=== PATIENT | female | born 1950 | race Caucasian/White ===

== ENCOUNTER → 2018-04-12 01:21 | Outpatient (CLI) | payer MEDICARE, SELFPAY ==
--- NOTE | 2018-04-12 13:37 | DI.REPORT_ITS ---
SYMPTOMS/DIAGNOSIS: SCREENING, Z12.31 MAMMOGRAMS: Mammograms were interpreted according to the usual protocol including computer analysis with CAD system, tomosynthesis and C view imaging. The breast tissue is of moderate radiodensity. There is no dominant mass. There are no suspicious calcifications and there has been no significant interval change when compared with prior images. SUMMARY: No evidence of malignancy, category 1. Yearly screening mammography is recommended. Breast density category B. SA ASSESSMENT OF FINDINGS: Negative. Category 1. Patient will receive a letter notifying them of these results. BI-RADS category B. There are scattered areas of fibroglandular density.
== END ==
PROVIDERS: PCP Nurse Practitioner Family; Visit Provider Nurse Practitioner Family
DX: Z12.31 Encounter for screening mammogram for malignant neoplasm of breast (principal)
CPT/HCPCS: 77063; 77067

== ENCOUNTER → 2018-04-17 14:34 | Outpatient (REF) | payer MEDICARE, SELFPAY | LOC: LBN 14:34 | PROVIDERS: PCP Nurse Practitioner Family; Visit Provider Family Medicine | DX: R30.0 Dysuria (principal) | CPT/HCPCS: 87077; 87086; 87186 ==

== ENCOUNTER 2018-06-27 12:07 | Outpatient (REF) | payer MEDICARE, SELFPAY | END 2018-06-27 12:27 | LOC: LBN 12:07 | PROVIDERS: PCP Nurse Practitioner Family; Visit Provider Nurse Practitioner | DX: R30.9 Painful micturition, unspecified (principal) | CPT/HCPCS: 87077; 87086; 87186 ==

== ENCOUNTER 2018-06-27 15:12 | Outpatient (CLI) | payer MEDICARE, SELFPAY ==
--- NOTE | 2018-06-27 09:49 | DI.RAD_ITS ---
SYMPTOMS/DIAGNOSIS: THUMB PAIN, SWELLING AND DISLOCATION, M79.646 LEFT THUMB: No fracture or dislocation is seen. The joint spaces are well maintained. There is spurring at the base of the 1st metacarpal and a small subchondral cyst at the base of the 1st and 2nd metacarpals. IMPRESSION: Degenerative changes at the base of the 1st and 2nd metacarpals.
== END 2018-06-27 15:32 ==
PROVIDERS: PCP Nurse Practitioner Family; Visit Provider Nurse Practitioner
DX: M79.645 Pain in left finger(s) (principal); M85.442 Solitary bone cyst, left hand; M19.042 Primary osteoarthritis, left hand
CPT/HCPCS: 73140

== ENCOUNTER 2018-07-07 01:51 | Outpatient (CLI) | payer MEDICARE, SELFPAY ==
[2018-07-07 11:31] LABS: Cholesterol 197 mg/dL (50-200); HDL Cholesterol 49 mg/dL (40-60); LDL CHOLESTEROL 136 mg/dL (<100); Triglyceride 95 mg/dL (30-150)
[2018-07-10 09:36] LABS: Hepatitis C Ab w Rflx HCV PCR Negative (NEGAT)
== END 2018-07-07 02:11 ==
PROVIDERS: PCP Nurse Practitioner Family; Visit Provider Nurse Practitioner Family
DX: E78.5 Hyperlipidemia, unspecified (principal); Z11.59 Encounter for screening for other viral diseases
CPT/HCPCS: 36415; 80061; 83721; 86803

== ENCOUNTER → 2018-07-12 10:41 | Outpatient (BNVA) | payer MEDICARE, SELFPAY | PROVIDERS: PCP Nurse Practitioner Family; Referring Provider Nurse Practitioner Family; Visit Provider Orthopaedic Surgery | DX: M65.312 Trigger thumb, left thumb (principal) | CPT/HCPCS: 99211; 99213 ==

== ENCOUNTER 2018-07-17 10:45 | Day surgery (SDC) | payer MEDICARE, SELFPAY ==
[2018-07-17 11:02] VITALS: BP 123/68; PULSE 70; RESP 16; TEMP 36.1; O2SAT 94
[2018-07-17] MEDS: Lidocaine 2% Multi-Dose 50 ML VIAL (12:16)
--- NOTE | 2018-07-17 12:29 | PDOC.DSDIS_ITS ---
Discharge Plan Disposition Patient Disposition: HOME Condition: Good Discharge Details Reason For Visit: (L) TRIGGER THUMB Attending Provider: Thony Wong Primary Care Provider: Leslie Levy Home Meds and New Rx's Prescriptions: Continue acetaminophen [Tylenol Extra Strength] 500 mg tablet 1,000 mg PO TID PRN (Reason: pain) Qty: 360 RF: 3 umeclidinium [Incruse Ellipta] 62.5 mcg/actuation blister with device 1 inh Inhalation DAILY Qty: 3 RF: 3 varicella-zoster [id number] (PF) [Shingrix (PF)] 50 mcg/0.5 mL suspension for reconstitution 50 mcg IM .COMPLEX Qty: 1 RF: 1 docusate sodium [Colace] 100 MG capsule 100 mg PO PRN RF: 0 melatonin-pyridoxine HCl (B6) 1 EACH tablet 1 ea PO HS Qty: 90 RF: 3 multivitamin [Daily Multi-Vitamin] 1 EACH tablet 1 ea PO DAILY RF: 0 compression socks, medium [Futuro Restoring Medium] 1 EACH misc 1 ea Miscellaneous DAILY Qty: 2 RF: 0 psyllium husk (with sugar) [Metamucil (with sugar)] 822 GM powder 3 gm PO See Instructions Qty: 3 RF: 3 pramipexole [Mirapex] 0.125 MG tablet 0.25 mg PO DAILY Qty: 180 RF: 3 loratadine 10 MG tablet 10 mg PO DAILY Qty: 90 RF: 3 calcium carbonate-vitamin D3 [Calcium 500 With D] 1 EACH tablet 2 tab-cap PO DAILY Qty: 180 RF: 3 ibuprofen 600 MG tablet 600 mg PO Q8H PRN Qty: 60 RF: 0 albuterol sulfate [ProAir HFA] 200 PUFF HFA aerosol inhaler 1 - 2 puff Inhalation Q4-6H PRN Qty: 1 RF: 3 budesonide-formoterol [Symbicort] 10.2 GM HFA aerosol inhaler 2 puff Inhalation BID Qty: 3 RF: 3 alendronate 70 MG tablet 70 mg PO Weekly Qty: 12 RF: 3 omeprazole 40 mg capsule,delayed release(DR/EC) 40 mg PO DAILY Qty: 90 RF: 3 Albuterol Sulfate 2 MG/5 ML syrup 4 mg PO RF: 0 Discharge Instructions Additional Instructions: Bend and straighten L thumb 10 times/hour when awake to prevent swelling and decrease pain. Remove dressings, shower or bathe and get stitches wet after 48 hours. Leave incision uncovered when it is dry and sealed. Take ibuprofen or tylenol for pain. Follow up in 's office on . Referrals: Thony Wong MD [ [facility] STAFF PHYSICIAN] - (f/u 07/26/18 at 's office.) Activity:: Activity as Tolerated Remove Dressings/Wound Care:: 48 hours Shower/Bathe:: 48 hours Diet:: As Tolerated Discharge Orders Discharge Orders: Discharge Order (Routine); Ordered 07/17/18 Ordered By: Thony Wong DS: Diagnosis Discharge Diagnosis (1) Trigger finger of left thumb: Start date: 07/17/18 Start time: 12:29 Status: Acute
--- NOTE | 2018-07-17 16:16 | ROE_ITS ---
DATE OF PROCEDURE: July 17, 2018 PREOPERATIVE DIAGNOSIS: Trigger left thumb. POSTOPERATIVE DIAGNOSIS: Same. PROCEDURE: Tendon sheath incision for trigger thumb release. ANESTHESIA: Local infiltration 1% Xylocaine solution and 0.5% Marcaine with an epinephrine solution. SURGEON: Thony Wong M.D. INDICATIONS: This is a 68-year-old white female with a greater than two month history of painful loc miguel angel and catching of her IP joint of her left thumb. Clinical examination was consistent with a trig oral thumb. The patient experienced so much pain that she would no longer attempt to flex her IP join t. This affected the function of her left hand. Trigger thumb release was recommended to alleviate her pain and restore good motion and function to the left thumb. The risks and complications of the procedure were explained to the patient in detail preoperatively. PROCEDURE: The patient was taken to the operating room on 07/17/18 and placed supine on the operatin g table. The left hand was placed on the hand table. The left hand was prepped and draped free in t he usual sterile fashion. I infiltrated over the proximal flexion crease of the left thumb with 1% X ylocaine solution. After waiting a couple of minutes she had excellent anesthesia. I then made an incision in line with the proximal flexion crease of the left thumb centered over the flexor tendon. The incision was about 2 to 2.5 cm in length. The incision was carried through the s ubcu. Blunt-tipped Littler scissors were then used to mobilize the digital nerve and soft tissues aw ay from the flexor sheath of the left thumb. A self-retaining retractor was inserted. The flexor sh eath was clearly visualized. I incised the flexor sheath in the midline under direct vision. I rele ased the entire proximal bel. The patient was then asked to actively flex and extend her left anuel mb. She was now able to flex and extend her left thumb, not only without pain, but without any owen ering or catching. The wound was irrigated with saline solution and the wound margins were infiltrat ed with 0.5% Marcaine with an epinephrine solution. The skin edges were approximated with three inte rrupted #4-0 nylon sutures. The wound was dressed with Xeroform gauze, sterile gauze 4x4's and wrapp ed with a 2-inch Cling bandage for a light pressure dressing. The patient tolerated the procedure well and was discharged to the Day Surgery Unit in good condition . The patient was discharged home from the Day Surgery Unit with instructions to flex and extend her IP joint of her left thumb ten times an hour while awake to prevent swelling and decrease pain. She is to take Tylenol or ibuprofen for pain as needed. She may remove her dressings, shower or bathe and get her incision wet after 48 hours. She is to leave the incision uncovered when it is dry and natividad d. She will follow-up in my office on 07/26/18 for suture removal.
== END 2018-07-17 13:00 | disposition home or self-care (01) ==
PROVIDERS: PCP Nurse Practitioner Family; Visit Provider Orthopaedic Surgery
PROC: (CPT 26055; principal; 2018-07-17 10:30)
DX: M65.312 Trigger thumb, left thumb (principal)
CPT/HCPCS: 26055

== ENCOUNTER → 2018-07-26 10:38 | Outpatient (BNVA) | payer MEDICARE, SELFPAY | PROVIDERS: PCP Nurse Practitioner; Referring Provider Nurse Practitioner Family; Visit Provider Orthopaedic Surgery | DX: Z47.89 Encounter for other orthopedic aftercare (principal); M65.312 Trigger thumb, left thumb ==

== ENCOUNTER 2018-10-11 16:09 | Outpatient (REF) | payer MEDICARE, SELFPAY | END 2018-10-11 16:29 | LOC: LBN 16:09 | PROVIDERS: PCP Nurse Practitioner; Visit Provider Nurse Practitioner | DX: N89.8 Other specified noninflammatory disorders of vagina (principal); R82.79 Other abnormal findings on microbiological examination of urine | CPT/HCPCS: 87077; 87086; 87186; 87480; 87510; 87660 ==

== ENCOUNTER 2019-01-18 10:49 | Outpatient (CLI) | payer MEDICARE, SELFPAY ==
[2019-01-18 11:41] LABS: HCT 40.8 % (36.0-46.0); HGB 13.3 g/dL (12.0-15.5); Mean Corp. HGB Concentration 32.6 g/dL (32.0-36.0); Mean Corpuscular Hemoglobin 31.6 pg (27.0-33.0); Mean Corpuscular Volume 96.9 fL (80-95); Mean Platelet Volume 9.9 fL (8.0-11.0); Platelet Count 223 x1000/uL (130-400); RBC 4.21 m/cumm (4.00-5.20); RBC Distribution Width 13.4 % (11.7-14.6)
[2019-01-18 12:29] LABS: ALT 28 U/L (12-78); AST 29 U/L (15-37); Albumin 3.7 g/dL (3.4-5.0); Alkaline Phosphatase 67 U/L (46-116); Anion Gap 8.4 mmol/L (3-11); BUN 19 mg/dL (7-18); Bilirubin, Total 0.2 mg/dL (0.2-1.0); CO2 28.6 mmol/L (21.0-32.0); Calcium 8.9 mg/dL (8.5-10.1); Chloride 103 mmol/L (98-107); Cholesterol 210 mg/dL (50-200); Estimated GFR 55.14 (mL/min/1.73m2); Glucose 118 mg/dL (70-100); HDL Cholesterol 49 mg/dL (40-60); LDL CHOLESTEROL 137 mg/dL (<100); Magnesium 1.8 mg/dL (1.8-2.4); Potassium 3.5 mmol/L (3.5-5.1); Sodium 140 mmol/L (136-145); TSH (W/Ref FT4) 1.46 uIU/mL (0.358-3.74); Total Protein 7.1 g/dL (6.4-8.2); Triglyceride 129 mg/dL (30-150)
== END 2019-01-18 11:09 ==
PROVIDERS: PCP Nurse Practitioner; Visit Provider Nurse Practitioner
DX: I10 Essential (primary) hypertension (principal); E78.5 Hyperlipidemia, unspecified; R25.2 Cramp and spasm; K21.9 Gastro-esophageal reflux disease without esophagitis; J44.9 Chronic obstructive pulmonary disease, unspecified
CPT/HCPCS: 36415; 80053; 80061; 83721; 85027; 83735; 84443

== ENCOUNTER 2019-01-18 10:55 | Outpatient (REF) | payer MEDICARE, SELFPAY ==
[2019-01-23 14:36] LABS: Helicobacter pylori Ag, Feces Negative (NEGAT)
== END 2019-01-18 11:15 ==
LOC: LBN 10:55
PROVIDERS: PCP Nurse Practitioner; Visit Provider Nurse Practitioner
DX: K21.9 Gastro-esophageal reflux disease without esophagitis (principal)
CPT/HCPCS: 87338

== ENCOUNTER 2019-01-26 18:11 | Emergency (ER) | payer MEDICARE, SELFPAY ==
[2019-01-26 18:14] VITALS: BP 150/77; PULSE 58; RESP 16; TEMP 36.5; O2SAT 97
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
[2019-01-26] MEDS: Doxycycline Hyclate 100 MG CAP PO (18:30)
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
== END 2019-01-26 18:36 | disposition home or self-care (01) ==
LOC: ER 18:37
PROVIDERS: Emergency Provider Emergency Medicine; PCP Nurse Practitioner
DX: S70.362A Insect bite (nonvenomous), left thigh, initial encounter (principal); W57.XXXA Bitten or stung by nonvenomous insect and other nonvenomous arthropods, initial encounter; L03.116 Cellulitis of left lower limb; J44.9 Chronic obstructive pulmonary disease, unspecified; Z87.891 Personal history of nicotine dependence
CPT/HCPCS: 99283

== ENCOUNTER → 2019-02-08 14:22 | Outpatient (BNVA) | payer MEDICARE, SELFPAY | PROVIDERS: PCP Nurse Practitioner; Referring Provider Nurse Practitioner; Visit Provider Physical Therapy Assistant | DX: K21.9 Gastro-esophageal reflux disease without esophagitis (principal); J44.9 Chronic obstructive pulmonary disease, unspecified | CPT/HCPCS: 99213 ==

== ENCOUNTER 2019-02-27 01:51 | Outpatient (CLI) | payer MEDICARE, SELFPAY | END 2019-02-27 02:11 | PROVIDERS: PCP Nurse Practitioner; Visit Provider Physical Therapy Assistant | DX: I10 Essential (primary) hypertension (principal); K21.9 Gastro-esophageal reflux disease without esophagitis; Z01.810 Encounter for preprocedural cardiovascular examination | CPT/HCPCS: 93005; 93010 ==

== ENCOUNTER 2019-03-06 08:14 | Day surgery (SDC) | payer MEDICARE, SELFPAY ==
--- NOTE | 2019-03-06 06:49 | W.PM.ENDDOP ---
Date of service: 03/06/19 Time of Service: : Endoscopy Report DATE OF PROCEDURE: 03/06/19 PRE-OP DIAGNOSIS: GERD POST-OP DIAGNOSIS: same PROCEDURE: EGD with biopsies SURGEON: Caity Gerardo ANESTHESIA: other (General/ ASA 2/Radha Molina, ISAIAH) ESTIMATED BLOOD LOSS: 2 PATHOLOGY: other (Antrum bx, Gastric polyp and GE junction) COMPLICATIONS: None DISPOSITION: same day INDICATIONS: Mrs. Dubois is a pleasant 68 year old seen in the office with GERD symptoms despite PPI. H. pylori test was negative. Risks, benefits and complications have been reviewed. Complications include but are not limited to bleeding, pain, perforation, sore throat, aspiration, and adverse reaction to the medications. Questions were entertained and answered to their satisfaction and they wished to proceed. No guarantees were given or implied. PROCEDURE START TIME: PROCEDURE END TIME: :35 FINDINGS: Mild gastritis, mild esophagitis, gastric polyps and small hiatal hernia PROCEDURE DESCRIPTION: After informed consent was obtained the patient was take to the procedure room and placed in a supine position. Monitors were applied and a time out was done. The patients name, date of , procedure type, allergies to medications and metal in their body was reviewed. A bite block was placed and the patient was sedated. Once sedated and comfortable the gastroscope was advanced through the oropharynx which was grossly normal into the esophagus. The proximal and mid-esophagus were normal. In the distal esophagus there was mild inflammation noted. The scope was advanced into the stomach and through the pylorus into the 3rd portion of the duodenum. The duodenum was noted to be normal. The scope was retracted back into the stomach and biopsies were done to rule out H. pylori. There were no ulcers. There was mild inflammation. The scope was retro-flexed. The cardia and fundus were noted to be normal. There was a small hiatal hernia noted. The scope was retracted back into the esophagus and biopsies were done of the GE junction to rule out Jimenez's. The Z line was regular. The GE junction was at 32 cm. The scope was removed and the patient was woken up and taken back to [facility] in stable condition. Follow up: I will add Carafate for 2 weeks. Low acid diet. Follow up with her PCP in 2 weeks. if symptoms persist I would recommend getting manometry and Ph studies at [facility] or [facility].
--- NOTE | 2019-03-06 06:51 | W.PM.DSUDISC ---
Discharge Plan Disposition Patient Disposition: HOME Condition: Good Discharge Details Reason For Visit: EGD Attending Provider: Caity Gerardo Primary Care Provider: Mila Masters Home Meds and New Rx's Prescriptions: New sucralfate 1 gram tablet 1 gm PO QID Qty: 28 RF: 0 Continued Incruse Ellipta 62.5 mcg/actuation blister with device 1 inh Inhalation DAILY Qty: 3 RF: 3 calcium carbonate-vitamin D3 [Calcium 500 With D] 500 mg(1,250mg) -400 unit tablet 2 tab PO DAILY Qty: 180 RF: 3 acetaminophen [Tylenol Extra Strength] 500 mg tablet 1,000 mg PO TID PRN (Reason: pain) Qty: 360 RF: 3 Shingrix (PF) 50 mcg/0.5 mL suspension for reconstitution 50 mcg IM .COMPLEX Qty: 1 RF: 1 docusate sodium [Colace] 100 MG capsule 100 mg PO PRN RF: 0 melatonin-pyridoxine HCl (B6) 1 EACH tablet 1 ea PO HS Qty: 90 RF: 3 multivitamin [Daily Multi-Vitamin] 1 EACH tablet 1 ea PO DAILY RF: 0 Futuro Restoring Medium 1 EACH misc 1 ea Miscellaneous DAILY Qty: 2 RF: 0 Metamucil (with sugar) 822 GM powder 3 gm PO See Instructions Qty: 3 RF: 3 Symbicort 10.2 GM HFA aerosol inhaler 2 puff Inhalation BID Qty: 3 RF: 3 alendronate 70 MG tablet 70 mg PO Weekly Qty: 12 RF: 3 omeprazole 40 mg capsule,delayed release(DR/EC) 40 mg PO DAILY Qty: 90 RF: 3 albuterol sulfate [ProAir HFA] 90 mcg/actuation HFA aerosol inhaler 1 - 2 puff Inhalation Q4-6H PRN Qty: 1 RF: 3 loratadine 10 mg tablet 10 mg PO DAILY Qty: 90 RF: 3 pramipexole [Mirapex] 0.125 mg tablet 0.25 mg PO DAILY Qty: 180 RF: 3 Discontinued ibuprofen 600 MG tablet 600 mg PO Q8H PRN Qty: 60 RF: 0 Discharge Instructions Instructions: Upper Endoscopy (DC), Diet for Stomach Ulcers and Gastritis (GEN), Gastritis (DC) Additional Instructions: Findings: mild inflammation of the stomach Small Hiatal hernia Follow up: 2 weeks with your PCP Please call if you develop: fevers >101.5 Nausea or Vomiting Abdominal pain that is not transient DAY SURGERY UNIT POST COLONOSCOPY INSTRUCTIONS 1. Because there will be medication in your system for the next 24 hours, you may feel a little sleepy. Your coordination will be affected. Therefore: a. Do not drive or operate dangerous equipment for 24 hours. b. Do not drink alcohol beverages for 24 hours (not even beer). c. Plan to go home and rest for the day. 2. Generally there are no restrictions on your activity after a day or so has gone by, but you may feel a bit fatigued for a few days. 3 After you arrive home you may have a light meal and return to a normal diet as you can tolerate it without feeling sick to your stomach. 4. After surgery, you may feel pain or discomfort. This should be only transient, but if it persists please contact your doctor. 5. If there are any questions regarding the findings of your procedure, please feel free to contact your doctor. 6. If you are unable to contact your doctor with a problem, contact the hospital at [phone]. 7. Continue all your regular medications unless directed otherwise. I understand the above instructions and have no questions. Signature of Patient or Responsible Adult Escort Date/Time Name of Responsible Adult Escort Signature of Nurse Date/Time Referrals: Sonam,Mila, BLENDING [employer] HELPER [Primary Care Provider] - (2 weeks) Activity:: Activity as Tolerated Diet:: Low acid Discharge Orders Discharge Orders: Discharge Order (Routine); Ordered 03/06/19 Ordered By: Caity Gerardo DS: Diagnosis Discharge Diagnosis (1) H/O esophagogastroduodenoscopy: Status: Chronic (2) Hiatal hernia: Status: Chronic (3) Gastritis: Status: Acute
[2019-03-06 08:44] VITALS: BP 139/78; PULSE 55; RESP 18; TEMP 36.5; O2SAT 96
[2019-03-06] MEDS: Lactated Ringers 1,000 ML 80 ML IV (08:59)
[2019-03-06] MEDS: Sodium Citrate 30 ML CUP (09:20)
--- NOTE | 2019-03-06 09:32 | BOWEL_PTH ---
PATIENT: Destini Dubois LOC: [facility] U#:[id number] AGE/SX: 68/F ROOM: RE03/06/[address]: Caity Gerardo MD : 1950 BED: DIS: 03/06/2019 SPEC #: [id number] RECD: 03/06/19 11:50 STATUS: JUDITH REAbrahan #: [id number] [place]: 03/06/19 09:[address]: Caity Gerardo DEPT: Surgical Specimen RECD BY: Debbi Quinonez ENTERED: 03/06/19 11:51 SP TYPE: Bowel OTHR DR: Mila Masters APRN Tissues: 1 - STOMACH BIOPSY 2 - STOMACH BIOPSY 3 - STOMACH BIOPSY 4 - STOMACH BIOPSY Procedures: GROSS AND MICRO LEVEL 4 Comments: [id number]
[2019-03-06 10:15] VITALS: BP 126/70; PULSE 52; RESP 16; TEMP 36; O2SAT 96
== END 2019-03-06 10:59 | disposition home or self-care (01) ==
LOC: SUR 08:14
PROVIDERS: PCP Nurse Practitioner; Visit Provider Surgery
PROC: 0DJ68ZZ Inspection of Stomach, Via Natural or Artificial Opening Endoscopic (ICD-10-PCS; CPT 43235; principal; 2019-03-06 09:30)
DX: K22.10 Ulcer of esophagus without bleeding (principal); K21.0 Gastro-esophageal reflux disease with esophagitis; K31.89 Other diseases of stomach and duodenum; K31.7 Polyp of stomach and duodenum; J44.9 Chronic obstructive pulmonary disease, unspecified; K21.9 Gastro-esophageal reflux disease without esophagitis
CPT/HCPCS: 43239; 88305

== ENCOUNTER → 2019-03-20 13:37 | Outpatient (BNVA) | payer MEDICARE, SELFPAY | PROVIDERS: PCP Nurse Practitioner; Referring Provider Nurse Practitioner; Visit Provider Surgery | DX: K29.00 Acute gastritis without bleeding (principal); K21.0 Gastro-esophageal reflux disease with esophagitis; K22.10 Ulcer of esophagus without bleeding; J44.9 Chronic obstructive pulmonary disease, unspecified; Z87.891 Personal history of nicotine dependence | CPT/HCPCS: 99212; 99213 ==

== ENCOUNTER → 2019-04-24 12:50 | Outpatient (BNVA) | payer MEDICARE, SELFPAY | PROVIDERS: PCP Nurse Practitioner; Referring Provider Nurse Practitioner; Visit Provider Surgery | DX: K22.10 Ulcer of esophagus without bleeding (principal); K29.00 Acute gastritis without bleeding; J44.9 Chronic obstructive pulmonary disease, unspecified; Z87.891 Personal history of nicotine dependence | CPT/HCPCS: 99212; 99213 ==

== ENCOUNTER → 2019-06-12 08:59 | Outpatient (BNVA) | payer MEDICARE, SELFPAY | PROVIDERS: PCP Nurse Practitioner; Referring Provider Nurse Practitioner; Visit Provider Surgery | DX: K22.10 Ulcer of esophagus without bleeding (principal); R07.9 Chest pain, unspecified | CPT/HCPCS: 99213 ==

== ENCOUNTER 2019-06-18 00:19 | Outpatient (CLI) | payer MEDICARE, SELFPAY ==
--- NOTE | 2019-06-18 06:45 | ETT_ITS ---
APPROVED REPORT Exam: Exercise Treadmill Patient Location: Out-Patient Room/Bed: Stress Nurse: Rachel Gomez RN Rhythm: Bradycardia Indications: Chest Pain, Dyspnea Medical History Medical History: COPD, Fatigue Allergies: Latex, naproxen, amitriotyline, aspirin, peroxicam, ropinrole, diclofenac,propranolol Cardiac Risk Factors: Hyperlipidemia, FHX of CAD, Smoking(former), SOB Pretest Chest Pain Characteristics: Exertional Chest pain, Non-exertional Chest pain Exercise History: Indeterminate Physical Disabilities: Hips Stress Test Details Test: Exercise stress testing was performed using a Jin protocol. Rest Stress HR Resting HR: 58 bpm Max Heart Rate (APMHR): 152 bpm Max HR Achieved: 129 bpm Target HR (85% APMHR): 129 bpm % of APMHR: 84 Recovery HR: 66 bpm HR response to stress: Normal HR response to stress BP Resting BP: 148/84 mmHg Max BP: 168/80 mmHg Recovery BP: 130/80 mmHg BP response to stress: Normal blood pressure response to stress. ECG Resting ECG: Sinus Bradycardia Stress ECG: Sinus Tachycardia, Sinus Rhythm, NSSTT changes ST Change: Normal Arrhythmia: VPC's Recovery ECG: Sinus Rhythm Recovery ST Change: Normal Recovery Arrhythmia: VPC Clinical Reason for Termination: Maximal effort Stress Symptoms: Dyspnea Exercise duration: 6 min Highest Stage Achieved: Stage 2: 2.5 mph at 12% grade. Exercise capacity: 7.18 METs Overall Exercise Capacity for Age: Normal Stress ECG Conclusion 1. Patient demonstrated fair exercise tolerance (7 METS) 2. This represents a maximal stress test 3. Patient had no angina symptoms with stress 4. There is no evidence of ischemia on stress ECG. 5. This represents a normal stress test. 6. The Christensen Score ( 5) estimates an annual cardiovascular mortality of 1% and a five year survival of 94% Using the Christensen Score there is a low probability of any angiographic coronary disease. Test Summary 1 04:37 0 0 58 1 148/84 96 supine 1 00:00 0 0.7 64 1 134/78 96 standing 1 03:00 10 1.7 110 4.64 152/84 2 03:00 12 2.5 128 7.05 168/82 3 00:05 14 3.4 129 7.18 1 min recovery 100 168/80 3 min recovery 74 140/90 6 min recovery 66 130/80
== END 2019-06-18 00:39 ==
PROVIDERS: PCP Nurse Practitioner; Visit Provider Nurse Practitioner
DX: R07.9 Chest pain, unspecified (principal); R06.02 Shortness of breath; E78.5 Hyperlipidemia, unspecified; Z82.49 Family history of ischemic heart disease and other diseases of the circulatory system
CPT/HCPCS: 93016; 93018; 93017

== ENCOUNTER 2019-08-24 02:23 | Outpatient (CLI) | payer MEDICARE, SELFPAY ==
--- NOTE | 2019-08-24 14:00 | DI.US_ITS ---
APPROVED REPORT EXAM: Comprehensive 2D, Doppler, and color-flow Echocardiogram Patient Location: Out-Patient Svp Of Digital: Nadeen Beckett RDCS (AE) Rhythm: NSR Indications: chest pain with activity r07.9 Conclusion Borderline LV wall thickness Normal LV EF and wall motion , EF60-65% No chamber enlargement Mild posterior mitral valve prolapse with mild regurgitation Moderate tricuspid regurgitation Mild aortic valve sclerosis Wall motion Left Ventricle The left ventricle is normal size. Left ventricular systolic function is normal. There is top normal left ventricular wall thickness. Regional wall motion is normal. abnormal relax with elevated filling pressures. Left ventricular filling pattern is normal for age. LVEF is estimated to be 60-65% Right Ventricle The right ventricle appears normal size. The right ventricular systolic function appears normal. Atria The left atrium size is normal. The right atrium size is normal. Aortic Valve Aortic valve is trileaflet. Mild aortic valve sclerosis. There is no aortic valvular stenosis. No aor tic regurgitation is present. 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 Mild mitral regurgitation direc krystal anteriorly. prolapse of the posterior mitral valve leaflet. Tricuspid Valve The tricuspid valve leaflets are thickened , but open well. Moderate tricuspid regurgitation. Pulmonic Valve Mild pulmonic regurgitation by color flow doppler. Great Vessels The aortic root is normal in size. The IVC is mildly dilated, and collapses bluntly. Pericardium No pericardial effusion. 2D Dimensions IVSd 1.05 cm F: 0.6-1.0 LV EDV A2C 78.50 mL PWd 1.00 cm F: 0.6 - 1.0 LV EDV A4C 100.90 mL LVDd 4.25 cm F: 3.8 - 5.2 LA Volume Index A2C 22.35 mL/m2 LVDs 3.05 cm F: 2.2 - 3.5 LA Volume Index A4C 21.02 mL/m2 Aortic Root 2.95 cm F: 2.7 - 3.3 LA Volume Index Biplane 22.56 mL/m2 RA Area A4C 16.09 cm2 LA Area A4C 14.51 cm2 LVOT 2.10 cm (M/F) 1.5-2.5 LA Area A2C 15.58 cm2 Ascending Aorta 3.23 cm F: 2.3 - 3.1 EF AP4 67.10 % LVEF (Teich) 54.81 % EF AP2 78.34 % LVEF (Reis's) 72.23 % F: 54 - 74 EF BP 72.23 % LV Volume 71.56 mL F: 46 - 106 LV Volume Index 40.89 mL/m2 F: 29 - 61 FS 28.15 % LV Diastology E/A Ratio 0.9 MED E' 0.06 (>0.07 m/s) LV E/e MED 15.00 (<14) LAT E' 0.07 (>0.1 m/s) LV E/e LAT 13.05 (<14) Pulm Vein s 0.70 m/s PV S/D Ratio 1.76 Pulm Vein d 0.40 m/s Pulm Vein a 0.36 m/s A-A Duration 113.27 msec Aortic Valve LVOT Area 3.50 cm2 LVOT Vmax 1.02 m/s LVOT Mean Yovani. 0.72 m/s LVOT Peak Gr. 4.2 mmHg LVOT Mean Gr. 2.3 mmHg AoV Area/ BSA (Vmax) 1.42 cm2/m2 LVOT VTI 0.200 m AoV Vmax 1.44 (0.5-1.3 m/s) FLAKO Mean Yovani. Index 1.35 cm2/m2 AoV Mean Yovani. 1.06 m/s AoV Peak Grad 8.3 mmHg AoV Mean Grad 4.8 (<5 mmHg) AoV VTI 0.344 (0.18-0.25 m) VTI Ratio 0.63 AoV Area VTI 2.21 (2.5-4.5 cm2) AoV Area/ BSA (VTI) 1.26 cm/m2 Mitral Valve MV E Max Yovani. 0.90 (0.4-1.3 m/s) MV A Velocity 1.00 (0.4-1.3 m/s) E/A Ratio 0.89 MV Decel. Time 226.70 (160-240 msec) MV PHT 65.75 msec MVA PHT 3.30 cm2 Tricuspid Valve TR P. Velocity 3.20 m/s TV Regurg Vmax 3.20 m/s RAP Estimate 8.00 mmHg RVSP 49.02 mmHg TR P. Gradient 41.00 mmHg
== END 2019-08-24 02:43 ==
PROVIDERS: PCP Nurse Practitioner; Visit Provider Nurse Practitioner
DX: R07.9 Chest pain, unspecified (principal); I34.1 Nonrheumatic mitral (valve) prolapse; I36.1 Nonrheumatic tricuspid (valve) insufficiency; I35.8 Other nonrheumatic aortic valve disorders
CPT/HCPCS: 93306

== ENCOUNTER 2019-09-11 06:08 | Day surgery (SDC) | payer MEDICARE, SELFPAY ==
[2019-09-11 06:26] VITALS: BP 126/78; PULSE 65; RESP 17; TEMP 36.5; O2SAT 96
--- NOTE | 2019-09-11 06:48 | ENDO_ITS ---
Date of service: 09/11/19 Time of Service: 07:43 Endoscopy Report DATE OF PROCEDURE: 09/11/19 PRE-OP DIAGNOSIS: Hx of erosive esophagitis POST-OP DIAGNOSIS: other (mild gastritis, mild esophagitis) PROCEDURE: EGD with bx SURGEON: Caity Gerardo ANESTHESIA: other (General/ ASA 3/Sergey Easley CRNA) ESTIMATED BLOOD LOSS: 3 PATHOLOGY: other (Pyloric bx, gastric polyp bx, cardia bx, GE junction bx) COMPLICATIONS: None DISPOSITION: same day INDICATIONS: 69 year old female with a history of erosive esophagitis who was seen in June for a repeat EGD. At that time she mentioned some chest pain with activity. Appreciate Mila Masters seeing patient and ordering a stress test which was read as normal. No GERD symptoms elicited from patient at this time. Risks, benefits and complications have been reviewed. Complications include but are not limited to bleeding, pain, perforation, sore throat, aspiration, and adverse reaction to the medications. Questions were entertained and answered to their satisfaction and they wished to proceed. No guarantees were given or implied. FINDINGS: mild inflammation around the pylorus and at the cardia benign appearing gastric polyps GE junction with mild inflammation. Grossly no Jimenez's and no erosions PROCEDURE DESCRIPTION: After informed consent was obtained the patient was take to the procedure room and placed in a supine position. Monitors were applied and a time out was done. The patients name, date of , procedure type, allergies to medications and metal in their body was reviewed. A bite block was placed and the patient was sedated. Once sedated and comfortable the gastroscope was advanced through the oropharynx which was grossly normal into the esophagus. The proximal and mid- esophagus were normal. In the distal esophagus there was mild inflammation noted. The scope was advanced into the stomach and through the pylorus into the 3rd portion of the duodenum. The duodenum was noted to be normal. The scope was retracted back into the stomach and mild inflammation was noted around the pylorus as well as in the cardia. Small benign appearing gastric polyps were also noted. Biopsies were done at the pylorus and cardia. Bx of the larger gastric polyp was done. There were no ulcers. The scope was retro-flexed. The fundus was noted to be normal. The scope was straightened and retracted back into the esophagus and biopsies were done of the GE junction. The Z line was regular. The GE junction was at 35 cm. The scope was removed and the patient was woken up and taken back to [facility] in stable condition. Follow up: As needed. I will send a letter to the patient with results. Recommend stopping Ranitidine and staying on Omeprazole 40 mg. In 1 months would try to reduce the Omeprazole to 20 mg daily. If symptoms recurr then increase Omeprazole back to 40 mg daily.
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
--- NOTE | 2019-09-11 06:59 | W.PM.DSUDISC ---
Discharge Plan Disposition Patient Disposition: HOME Condition: Good Discharge Details Reason For Visit: Hx of erosive esophagitis Attending Provider: Caity Gerardo Primary Care Provider: Mila Masters Home Meds and New Rx's Prescriptions: Continued calcium carbonate-vitamin D3 [Calcium 500 With D] 500 mg(1,250mg) -400 unit tablet 2 tab PO DAILY Qty: 180 RF: 3 omeprazole 40 mg capsule,delayed release(DR/EC) 40 mg PO DAILY Qty: 90 RF: 3 Shingrix (PF) 50 mcg/0.5 mL suspension for reconstitution 50 mcg IM .COMPLEX Qty: 1 RF: 1 nystatin 100,000 unit/gram cream 1 applic TP BID PRN (Reason: perineal rash) Qty: 30 RF: 1 halobetasol propionate 0.05 % cream 1 applic TP DAILY Qty: 15 RF: 4 acetaminophen [Tylenol Extra Strength] 500 mg tablet 1,000 mg PO TID PRN (Reason: pain) Qty: 360 RF: 3 docusate sodium [Colace] 100 MG capsule 100 mg PO PRN RF: 0 multivitamin [Daily Multi-Vitamin] 1 EACH tablet 1 ea PO DAILY RF: 0 (DME) Futuro Restoring Medium 1 EACH misc 1 ea Miscellaneous DAILY Qty: 2 RF: 0 Metamucil (with sugar) 822 GM powder 3 gm PO See Instructions Qty: 3 RF: 3 albuterol sulfate [ProAir HFA] 90 mcg/actuation HFA aerosol inhaler 1 - 2 puff Inhalation Q4-6H PRN Qty: 1 RF: 3 loratadine 10 mg tablet 10 mg PO DAILY Qty: 90 RF: 3 pramipexole [Mirapex] 0.125 mg tablet 0.25 mg PO DAILY Qty: 180 RF: 3 alendronate 70 mg tablet 70 mg PO Weekly Qty: 12 RF: 3 Symbicort 160-4.5 mcg/actuation HFA aerosol inhaler 2 puff Inhalation BID Qty: 3 RF: 3 Anoro Ellipta 62.5-25 mcg/actuation blister with device 1 inh IH DAILY RF: 0 Discontinued ranitidine HCl 300 mg tablet 300 mg PO QHS Qty: 30 RF: 3 Discharge Instructions Additional Instructions: Findings: mild inflammation of the stomach and esophagus Follow up: as needed Medications: stop Ranitidine (Zantac). Continue Omeprazole 40 mg daily Please call if you develop: fevers >101.5 Nausea or Vomiting Abdominal pain that is not transient DAY SURGERY UNIT POST ENDOSCOPY INSTRUCTIONS 1. Because there will be medication in your system for the next 24 hours, you may feel a little sleepy. Your coordination will be affected. Therefore: a. Do not drive or operate dangerous equipment for 24 hours. b. Do not drink alcohol beverages for 24 hours (not even beer). c. Plan to go home and rest for the day. 2. Generally there are no restrictions on your activity after a day or so has gone by, but you may feel a bit fatigued for a few days. 3 After you arrive home you may have a light meal and return to a normal diet as you can tolerate it without feeling sick to your stomach. 4. After surgery, you may feel pain or discomfort. This should be only transient, but if it persists please contact your doctor. 5. If there are any questions regarding the findings of your procedure, please feel free to contact your doctor. 6. If you are unable to contact your doctor with a problem, contact the hospital at [phone]. 7. Continue all your regular medications unless directed otherwise. I understand the above instructions and have no questions. Signature of Patient or Responsible Adult Escort Date/Time Name of Responsible Adult Escort Signature of Nurse Date/Time Activity:: Activity as Tolerated Diet:: As Tolerated Discharge Orders Discharge Orders: Discharge Order (Routine); Ordered 09/11/19 Ordered By: Caity Gerardo DS: Diagnosis Discharge Diagnosis (1) Gastritis: Status: Acute (2) H/O esophagogastroduodenoscopy: Status: Chronic
[2019-09-11] MEDS: Lactated Ringers 1,000 ML 80 ML IV (07:05)
--- NOTE | 2019-09-11 07:33 | STOM_PTH ---
PATIENT: Destini Dubois LOC: [facility] U#:[id number] AGE/SX: 69/F ROOM: RE09/11/[address]: Caity Gerardo MD : 1950 BED: DIS: 09/11/2019 SPEC #: [id number] RECD: 09/11/19 12:44 STATUS: JUDIHT RE #: [id number] [place]: 09/11/19 07:[address]: Caity Gerardo DEPT: Surgical Specimen RECD BY: Abi Mcmahon ENTERED: 09/11/19 12:45 SP TYPE: STOMACH OTHR DR: Mila Masters APRN Tissues: 1 - STOMACH BIOPSY 2 - STOMACH BIOPSY 3 - STOMACH BIOPSY 4 - ESOPHAGUS BIOPSY Procedures: GROSS AND MICRO LEVEL 4 Comments: [id number]
[2019-09-11 08:16] VITALS: BP 127/81; PULSE 75; RESP 16; TEMP 36.4; O2SAT 96
== END 2019-09-11 09:05 | disposition home or self-care (01) ==
PROVIDERS: PCP Nurse Practitioner; Visit Provider Surgery
PROC: 0DJ68ZZ Inspection of Stomach, Via Natural or Artificial Opening Endoscopic (ICD-10-PCS; CPT 43235; principal; 2019-09-11 07:30)
DX: K22.10 Ulcer of esophagus without bleeding (principal); K21.9 Gastro-esophageal reflux disease without esophagitis; K31.7 Polyp of stomach and duodenum; K29.70 Gastritis, unspecified, without bleeding; J44.9 Chronic obstructive pulmonary disease, unspecified; F17.210 Nicotine dependence, cigarettes, uncomplicated
CPT/HCPCS: 43239; 88305; NC; J2250; J2704; J3010

== ENCOUNTER 2019-10-15 01:25 | Outpatient (CLI) | payer MEDICARE, MEDICAID, SELFPAY ==
--- NOTE | 2019-10-15 14:21 | DI.CTLCSR_ITS ---
EXAM: CT CHEST LUNG CANCER SCREEN CLINICAL HISTORY: Z87.891 NICOTINE DEPENDENCE TECHNIQUE: Low dose noncontrast screening protocol. COMPARISON: CHEST WITH CONTRAST from 10/07/2011 CHEST 2 VIEWS PA,LAT from 12/30/2017 CHEST 2 VIEWS PA,LAT from 12/30/2017 FINDINGS: Heart size is normal. There are mild coronary artery and aortic calcifications. The aorta is mildl y tortuous. No adenopathy, pleural or pericardial effusions are seen. Bilateral upper lobe scarring . There is moderate centrilobular emphysema. Scarring is also noted at the lung bases. There is a 3 x 5 x 6 millimeter nodule in the right upper lobe. No additional nodules are identified. No infil trates are seen. There is a stable lower thoracic compression fracture. IMPRESSION: 3 x 5 x 6 millimeter right upper lobe nodule. Lung RADS Cat 3 - Probably Benign: Probably benign finding(s) -6 month follow-up suggested; include n odules with a low likelihood of becoming a clinically active cancer.
== END 2019-10-15 01:45 ==
PROVIDERS: PCP Nurse Practitioner; Visit Provider Internal Medicine
DX: Z12.2 Encounter for screening for malignant neoplasm of respiratory organs (principal); Z87.891 Personal history of nicotine dependence; R91.1 Solitary pulmonary nodule; J43.8 Other emphysema
CPT/HCPCS: G0297

== ENCOUNTER 2019-10-23 16:39 | Outpatient (REF) | payer MEDICARE, SELFPAY | END 2019-10-23 16:59 | LOC: LBN 16:39 | PROVIDERS: PCP Nurse Practitioner; Visit Provider Nurse Practitioner Women's Health | DX: R30.0 Dysuria (principal) | CPT/HCPCS: 87077; 87086; 87186 ==

== ENCOUNTER 2020-02-12 14:59 | Outpatient (REF) | payer MEDICARE, SELFPAY | END 2020-02-12 15:19 | LOC: LBN 14:59 | PROVIDERS: PCP Nurse Practitioner; Visit Provider Obstetrics & Gynecology | DX: N89.8 Other specified noninflammatory disorders of vagina (principal) | CPT/HCPCS: 87480; 87510; 87660 ==

== ENCOUNTER 2020-03-28 03:39 | Outpatient (CLI) | payer MEDICARE, SELFPAY ==
--- NOTE | 2020-03-28 12:13 | DI.CT_ITS ---
EXAM: CT CHEST WO CLINICAL HISTORY: The patient reportedly has a History of Smoking 30 pack years and presently smokes or has quit the past 15 years. TECHNIQUE: Imaging Protocol: Axial computed tomography images with coronal and sagittal reformatted images were created and reviewed COMPARISON: CT CT CHEST LUNG CANCER SCREEN from 10/15/2019 FINDINGS: Tracheobronchial tree: Patent where visualized. Mediastinum and Sil: No dominant adenopathy or fluid collection. Pulmonary parenchyma: Moderate centrilobular emphysema. No focal consolidating infiltrates are prese nt. Areas of pulmonary scarring are noted. Lung Nodules: There is a stable right upper lobe pulmonary nodule. No new pulmonary nodules are iden tified. Pleura: No effusion or pneumothorax. Heart: The heart is not dilated. Mild coronary artery calcification. No pericardial effusion. Aorta: Thoracic aorta non-dilated.Atherosclerosis. Upper abdomen: Unremarkable. Bones: There is a stable T10 compression fracture deformity. Degenerative changes are seen in the sp ine. Soft Tissues: Unremarkable. IMPRESSION: Stable right upper lobe pulmonary nodule. Lung RADS Cat 3 - Probably Benign: Probably benign finding(s) - short term follow-up suggested; inclu de nodules with a low likelihood of becoming a clinically active cancer. Lung-RADS 1.0 CATEGORIES: Category 0 - Prior chest CT exam(s) being located for comparison. Category 1 - Annual screening in 12 months. No nodules or definitely benign nodules. Category 2 - Annual screening in 12 months. Benign appearance. Nodules with low likelihood of becomin g active cancer. Category 3 - 6-month follow-up. Probably benign. Short-term follow-up suggested. Nodules with low lik elihood of becoming active cancer. Category 4A - 3-month follow-up and CT/PET if >8 mm in size. Suspicious finding. Findings which requi re additional testing. Category 4B - Findings which require additional testing and tissue sampling. Suspicious finding. C Added to Any of the Above - History of prior lung cancer screening. S Added to Any of the Above - Significant unexpected other finding. RADIATION DOSE DELIVERED: Total DLP Total DLP Total DLP DATA REPOSITORY: All CT scans at this facility are submitted to the National Radiology Data Registry (NRDR) Dose Index Registry (DIR) with the [employer] (ACR). RADIATION OPTIMIZATION: All CT scans at this facility use at least one of these dose optimization te chniques: automated exposure control; mA and/or kV adjustment per patient size (includes targeted exa ms where dose is matched to clinical indication); or iterative reconstruction.
== END 2020-03-28 03:59 ==
PROVIDERS: PCP Nurse Practitioner; Visit Provider Internal Medicine
DX: J44.9 Chronic obstructive pulmonary disease, unspecified (principal); Z87.891 Personal history of nicotine dependence
CPT/HCPCS: 71250

== ENCOUNTER → 2020-09-24 04:09 | Outpatient (CLI) | payer OTHER, SELFPAY ==
[2020-09-24 08:23] LABS: HCT 39.7 % (36.0-46.0); HGB 12.9 g/dL (11.2-15.7); MCH 30.7 pg (27.0-33.0); MCHC 32.5 % (32.0-36.0); MCV 94.5 fL (80-95); MPV 9.9 fL (8.0-11.0); Platelet Count 236 10^3/uL (130-400); RDW 13.1 % (11.7-14.6); WBC 5.58 10^3/uL (4.4-10.8)
[2020-09-24 09:42] LABS: ALT 26 U/L (14-59); AST 24 U/L (15-37); Albumin 3.9 g/dL (3.4-5.0); Alkaline Phosphatase 80 U/L (46-116); Anion Gap 4.6 mmol/L (3-11); BUN 13 mg/dL (7-18); Bilirubin, Total 0.4 mg/dL (0.2-1.0); CO2 31.4 mmol/L (21.0-32.0); CREATININE 0.79 mg/dL (0.55-1.02); Calcium 8.8 mg/dL (8.5-10.1); Calculated LDL 152 mg/dL (<100); Chloride 106 mmol/L (98-107); Cholesterol 233 mg/dL (<200); Glucose 66 mg/dL (74-106); HDL Cholesterol 67 mg/dL (40-60); Potassium 4.2 mmol/L (3.5-5.1); Sodium 142 mmol/L (136-145); Total Protein 7.3 g/dL (6.4-8.2); Triglyceride 71 mg/dL (<150)
== END ==
PROVIDERS: PCP Nurse Practitioner; Visit Provider Nurse Practitioner
DX: E78.5 Hyperlipidemia, unspecified (principal); J44.9 Chronic obstructive pulmonary disease, unspecified
CPT/HCPCS: 36415; 80053; 80061; 85027

== ENCOUNTER → 2020-09-26 03:36 | Outpatient (CLI) | payer OTHER, SELFPAY ==
--- NOTE | 2020-09-26 07:30 | DI.RAD_ITS ---
EXAM: XR HIP LT COMPLETE AP PELVIS CLINICAL HISTORY: Left hip pain, weakness. ORIF then MARGA 2015,M25.552. TECHNIQUE: 2D digital imaging was performed. COMPARISON: CR PELVIS AP from 12/30/2015 FINDINGS: BONES: No acute fracture is present. No bony destructive lesion is seen. There is unchanged cortical deformity at the lateral aspect of the proximal left femoral metaphysis. There is a stable left tota l hip replacement. The distal aspect of the femoral prosthetic component is not included on the imag es. JOINTS: No dislocation present. Mild degenerative changes are seen in the right hip. Mild degenerati ve changes are seen in the lower lumbosacral spine. SOFT TISSUE: Normal. IMPRESSION: No acute abnormality. Stable left THR. DATA REPOSITORY: RADIATION DOSE DELIVERED:
--- NOTE | 2020-09-26 13:00 | DI.MAMMO_ITS ---
EXAM: MG MAMMO SCREENING CLINICAL HISTORY: screening,Z12.39 TECHNIQUE: Bilateral full field digital CC and MLO mammographic images were obtained with 3D tomosyn thesis and utilizing computer aided detection (CAD). COMPARISON: Available for comparison. FINDINGS: Masses/Architectural Distortion: No suspicious mass is present. There has been no change in appearan ce of the partially calcified mass in the upper outer retroareolar region of the right breast likely reflecting of fibroadenoma. Microcalcifications: No suspicious pleomorphic-type are seen. Skin Thickening/Nipple Retraction: None. IMPRESSION: 1. No significant interval change with no specific features of malignancy noted. 2. Unless there is more urgent need, screening mammography is recommended, as per [employer] guidelines. BI-RADS Category 2 - Benign Findings Breast Density - Category B - Scattered areas of fibroglandular density Breast density category C or D implies that the patient has dense breast tissue. Dense breast tissue is very common and is not abnormal but dense breast tissue can make it harder to find cancer on a ma mmogram. Also, dense breast tissue may increase their breast cancer risk. This information about the result of the mammogram report was provided to the patient to raise their awareness. Use this report when you speak with the patient about their risks for breast cancer, which includes their family hist ory. At that time, you may recommend for more screening tests (Ultrasound or MRI) as they might be us eful based on their risk. A negative radiographic report should not delay biopsy if a dominant or clinically suspicious mass is present. Up to ten percent of cancers are not identified on mammography. A negative report may reinforce clinical impression. Adenosis and dense breasts may obscure an underlying neoplasm. False positive reports average 6 to 10%. Patient will receive a letter notifying them of these results.
== END ==
PROVIDERS: PCP Nurse Practitioner; Visit Provider Nurse Practitioner
DX: Z12.31 Encounter for screening mammogram for malignant neoplasm of breast (principal); M25.552 Pain in left hip; Z96.642 Presence of left artificial hip joint
CPT/HCPCS: 77063; 77067; 73502

== ENCOUNTER 2020-10-10 21:39 | Outpatient (CLI) | payer OTHER, SELFPAY ==
--- NOTE | 2020-10-10 12:15 | DI.RAD_ITS ---
EXAM: XR KNEE RT 3V AP,LAT,SHEILA CLINICAL HISTORY: r/o bony abn/fx, esmer anterior knee pain, M25.561, M25.562, W19.XXXA. TECHNIQUE: 2D digital imaging was performed. COMPARISON: No previous for comparison. FINDINGS: BONES: No acute fracture is present. No bony destructive lesion is seen. JOINTS: The knee is normally aligned. There is a small joint effusion. Chondrocalcinosis is present. Mild periarticular spurring is seen at all 3 joint compartments. SOFT TISSUE: Normal. IMPRESSION: No acute fracture or dislocation. Small joint effusion. DATA REPOSITORY: RADIATION DOSE DELIVERED:
--- NOTE | 2020-10-10 12:15 | DI.RAD_ITS ---
EXAM: XR KNEE LT 3V AP,LAT,SHEILA CLINICAL HISTORY: r/o bony abn/fx, esmer anterior knee pain, fall, M25.561, M25.562, W19.XXXA. TECHNIQUE: 2D digital imaging was performed. COMPARISON: CR CHEST 2 VIEWS PA,LAT from 12/30/2017 FINDINGS: BONES: No acute fracture is present. No bony destructive lesion is seen. JOINTS: The knee is normally aligned. There is a small joint effusion. There is chondrocalcinosis se en in the lateral femoral tibial joint. SOFT TISSUE: Normal. IMPRESSION: No acute fracture or dislocation. Small joint effusion. DATA REPOSITORY: RADIATION DOSE DELIVERED:
== END 2020-10-10 21:40 | disposition home or self-care (01) ==
LOC: DI 10-13 21:39
PROVIDERS: PCP Nurse Practitioner; Visit Provider Nurse Practitioner Adult Health
DX: M25.461 Effusion, right knee (principal); M25.462 Effusion, left knee; M11.262 Other chondrocalcinosis, left knee; M11.261 Other chondrocalcinosis, right knee
CPT/HCPCS: 73562

== ENCOUNTER 2020-11-10 04:28 | Outpatient (CLI) | payer OTHER, SELFPAY ==
[2020-11-10 11:26] LABS: C-Reactive Protein 0.07 mg/dL (0.0-0.3)
[2020-11-10 11:51] LABS: Vitamin D 25 Total 29.9 ng/ml (30-100)
[2020-11-10 16:24] LABS: Rheumatoid Factor <8.6 IU/mL (<12.0)
[2020-11-10 16:53] LABS: ESR 26 mm/hr (<or=30)
[2020-11-11 11:32] LABS: Lyme Ab w Rflx to Lyme Confirm Negative (Negative)
[2020-11-11 15:16] LABS: ANA Interpretation Positive (Negative); ANA Titer Pattern 1:160 Speckled
== END 2020-11-10 04:29 | disposition home or self-care (01) ==
LOC: LBO 04:28
PROVIDERS: PCP Nurse Practitioner; Visit Provider Nurse Practitioner
DX: M25.59 Pain in other specified joint (principal); M85.88 Other specified disorders of bone density and structure, other site
CPT/HCPCS: 36415; 82306; 85652; 86038; 86140; 86431; 86618

== ENCOUNTER 2020-11-18 01:31 | Outpatient (CLI) | payer OTHER, SELFPAY ==
--- NOTE | 2020-11-18 08:00 | DI.DEXA_ITS ---
EXAM: XR DEXA BONE DENSITY W/WO MARYAN CLINICAL HISTORY: f/u osteoporosis,M81.0 TECHNIQUE: COMPARISON: CR XR HIP LT COMPLETE AP PELVIS from 09/26/2020 FINDINGS: DEXA scan was performed according to the usual protocol. Lateral vertebral scanogram shows multiple lower thoracic vertebral compression fractures. Findings for right hip scanning are T-score -2.3 with right femoral neck T-score -2.7. Prior scan of December 2016 showed right hip T-score -2.3. Lumbar spine scanning shows T-score -1.2, prior study of December 2016 showed lumbar T-score -1.8. Left forearm scanning shows T-score -1.7, unchanged from prior study of 2017. IMPRESSION: Findings consistent with osteoporosis according to the WHO criteria. Multiple lower thoracic vertebr al compression fractures noted. RADIATION DOSE DELIVERED: Total DLP
== END 2020-11-18 01:51 ==
PROVIDERS: PCP Nurse Practitioner; Visit Provider Nurse Practitioner
DX: M81.0 Age-related osteoporosis without current pathological fracture (principal)
CPT/HCPCS: 77080

== ENCOUNTER 2020-11-28 16:52 | Emergency (ER) | payer OTHER, SELFPAY ==
[2020-11-28 16:58] VITALS: BP 147/78; PULSE 70; RESP 18; TEMP 36.3; O2SAT 91
--- NOTE | 2020-11-28 17:00 | DI.RAD_ITS ---
EXAM: XR HAND LT COMPLETE CLINICAL HISTORY: cat bite today 3rd MCP dorsal. TECHNIQUE: 2D digital imaging was performed. COMPARISON: There is no evidence of fracture or dislocation. There is no radiopaque foreign body. No osseous lesions and no obvious radiographic evidence of osteomyelitis, given the history here. On the lateral view there is a submillimeter calcifications seen off the dorsal aspect of the DIP joint of the 3rd-middle finger. No overlying soft tissue lacerations seen and bone density bone density i s normal. There is chondrocalcinosis incidentally noted in the triangular fibrocartilage complex on the medial aspect of the wrist. Also some degenerative cysts in the carpal row bones and base of the thumb meta carpal. FINDINGS: Sub millimeter calcific density seen just dorsal to the DIP joint of the 3rd-middle finger. No disti nct fracture line. No radiographic evidence of osteomyelitis. No radiopaque foreign body. IMPRESSION: DATA REPOSITORY: RADIATION DOSE DELIVERED:
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
[2020-11-28] MEDS: Acetaminophen 325 MG TAB 650 MG PO (17:16)
[2020-11-28] MEDS: Amoxicillin 875/Clav. 125 TAB PO (17:16)
[2020-11-28 17:54] VITALS: BP 140/76; PULSE 73; RESP 18; O2SAT 93
[2020-11-28] MEDS: Amox. 875/Clav. 125, 2 TABS/BTL 1 TAB PO (17:54)
--- NOTE | 2020-11-28 17:54 | DI.VRAD_ITS ---
PROCEDURE INFORMATION: Exam: XR Left Hand Exam date and time: 11/28/2020 5:10 PM Age: 70 years old Clinical indication: Pain; Hand; Left; Patient HX: Cat bite 3rd mcp dorsal TECHNIQUE: Imaging protocol: XR Left hand. Views: 3 or more views. COMPARISON: CR ARTHITIS SERIES-SHAE HAND WRIST 03/16/2017 1:59 PM FINDINGS: Bones/joints: Normal. Soft tissues: Soft tissue swelling is seen along the dorsal aspect of the hand. Other findings: No gas is noted within the soft tissues. IMPRESSION: Soft tissue swelling. No soft tissue gas is seen. Dictated and Authenticated by: Selwyn Santo MD. Ordering:DARIO Castañeda MD
--- NOTE | 2020-11-28 20:11 | NUR.NOTE ---
Nursing note Faxed animal bite report to Sloane Campos [facility] Health Officer at fax#[phone].
== END 2020-11-28 18:00 | disposition home or self-care (01) ==
PROVIDERS: Emergency Provider Student in an Organized Health Care Education/Training Program; PCP Nurse Practitioner
DX: R69 Illness, unspecified (principal); S61.452A Open bite of left hand, initial encounter; L03.114 Cellulitis of left upper limb; W55.01XA Bitten by cat, initial encounter
CPT/HCPCS: 90471; 99284; 73130

== ENCOUNTER 2021-01-16 16:18 | Outpatient (REF) | payer OTHER, SELFPAY ==
[2021-01-17 13:10] LABS: COVID-19 RT-PCR UVMMC Result Negative (Negative)
== END 2021-01-16 16:19 | disposition home or self-care (01) ==
LOC: LBN 16:18
PROVIDERS: PCP Nurse Practitioner; Visit Provider Family Medicine
DX: Z20.822 Contact with and (suspected) exposure to COVID-19 (principal)
CPT/HCPCS: U0003

== ENCOUNTER 2021-01-30 11:53 | Outpatient (CLI) | payer OTHER, SELFPAY ==
--- NOTE | 2021-01-26 13:45 | DI.RAD_ITS ---
Exam(s) XR CHEST 2V PA LATERAL EXAM: XR CHEST 2V PA LATERAL CLINICAL HISTORY: Cough x2w s/p steroid, zpack, R05; r/o acute process. TECHNIQUE: 2D digital imaging was performed. COMPARISON: CR CHEST 2 VIEWS PA,LAT from 12/30/2017 FINDINGS: Heart size is upper normal. The mediastinum is not widened. Lungs are clear. No infiltrates nor pleural effusions. The previously present atelectasis in left l sonja base is no longer seen. Also increased markings previously in from the lateral right lung base a re no longer seen Wedge compression fracture of a lower thoracic vertebra is again noted. IMPRESSION: Lungs are presently clear.No pleural effusions. DATA REPOSITORY: RADIATION DOSE DELIVERED:
== END 2021-01-30 12:13 ==
LOC: DI 11:57
PROVIDERS: PCP Nurse Practitioner; Visit Provider Nurse Practitioner Adult Health
DX: R05 Cough (principal)
CPT/HCPCS: 71046

== ENCOUNTER 2021-03-23 14:56 | Outpatient (CLI) | payer OTHER, SELFPAY ==
--- NOTE | 2021-03-23 14:53 | DI.RAD_ITS ---
Exam(s) XR ANKLE LT COMPLETE EXAM: XR ANKLE LT COMPLETE CLINICAL HISTORY: r/o lat ankle fracture vs. distal fib fx, s/p fall, ankle pain, M25.572. TECHNIQUE: 2D digital imaging was performed. COMPARISON: None FINDINGS: There is soft tissue swelling most evident medially. There is no evidence of fracture or widening of the mortise. Talar dome appears unremarkable. Slight irregularity of the posterior malleolus is no krystal. IMPRESSION: DATA REPOSITORY: RADIATION DOSE DELIVERED:
--- NOTE | 2021-03-23 14:53 | DI.RAD_ITS ---
Exam(s) XR TIB/FIB LT EXAM: XR TIB/FIB LT CLINICAL HISTORY: r/o lat ankle fracture vs. distal fib fx, s/p fall, ankle pain, M25.572. TECHNIQUE: 2D digital imaging was performed. COMPARISON: No exams were available for comparison FINDINGS: AP and lateral views reveal no evidence of fracture. No widening of the mortise. Talar dome unremar kable no osseous lesions. No radiopaque foreign body noted in the calf. IMPRESSION: DATA REPOSITORY: RADIATION DOSE DELIVERED:
== END 2021-03-23 15:16 ==
LOC: DI 14:58
PROVIDERS: PCP Nurse Practitioner; Visit Provider Nurse Practitioner Adult Health
DX: G89.11 Acute pain due to trauma (principal); M25.572 Pain in left ankle and joints of left foot; W19.XXXD Unspecified fall, subsequent encounter
CPT/HCPCS: 73590; 73610

== ENCOUNTER 2021-08-10 01:05 | Outpatient (CLI) | payer MEDICARE, SELFPAY ==
--- NOTE | 2021-08-10 07:00 | DI.NM_ITS ---
APPROVED REPORT Exam: Pharmacologic paired w/ low level exercise Patient Location: Out-Patient Room/Bed: Stress Nurse: Daija Rodríguez RN Ordering Provider:RAUDEL MELENDEZ, Contact Number: [phone] BMI: 24.12 Baseline Rhythm: Sinus Bradycardia Indications: CHEST PAIN, ORTHOPNEA Medical History Medical History: COPD, DVT, Depression, GERD, HLD, Osteoporosis, Polyarthralgia, Chronic low back samaria n, Tobacco use disorder, Orthopnea, Falls, Asthma Cardiac Medications: Umeclidinium inhaler, Omeprazole, Albuterol sulfate inhaler, Budesonide-formoter ol inhaler, Budesonide-glycopyr inhaler, Allergies: Diclofenac, Propranolol, Aspirin, Piroxicam, Ropinirole HCl, Latex, Naproxen, Amitripyline Cardiac Risk Factors: FHX of CAD, Hyperlipidemia, Smoking (former) , Asthma, COPD Previous Cardiac Procedures: None Pretest Chest Pain Characteristics: No chest pain Exercise History: Sedentary Physical Disabilities: Legs Lung Sounds: Diminished throughout Heart Sounds: Regular Stress Test Details Test: Pharmacologic stress was paired with low level exercise. Reason for pharmacologic stress test: physical limitation. Nuclear Acquisition: Rest Tc-99m/Stress Tc-99m 1 day Rest Isotope: Tc-99m Sestamibi. Dose: 10.0 Date: 08/10/2021 Injection Time: 0915 Stress Isotope: Tc-99m Sestamibi. Dose: 33.0 Date: 08/10/2021 Injection Time: 1115 HR Resting HR Supine: 54 bpm Max Heart Rate (APMHR): 149 bpm Resting HR Standin bpm Target HR (85% APMHR): 126 bpm Max HR Achieved: 104 bpm % of APMHR: 69 Recovery HR: 82 bpm BP Resting BP Supine: 144/72 mmHg Resting BP Standin/76 mmHg Max BP: 148/76 mmHg Recovery BP: 144/78 mmHg ECG Resting ECG: Sinus Bradycardia Ectopy: None Stress ECG: Sinus Rhythm, Sinus Tachycardia ST Change: No significant ST segment changes noted Arrhythmia: occasional PVC Recovery ECG: Sinus Rhythm Recovery ST Change: No significant ST segment changes noted Recovery Arrhythmia: occasional PVC Clinical Stress Symptoms: Dyspnea, Headache, Nausea Rate Pressure Product: [id number] Stress ECG Conclusion 1. This was a pharmacological stress test. 2. The ECG portion of the exam was nondiagnostic. Stress Test Summary STAGE HR BP Symptoms NOTES Supine 54 144/72 1 min post Lexiscan injection 100 146/82 SOB, Nausea, ALEMAN 3 min post Lexiscan injection 87 142/74 6 min post Lexiscan injection 82 144/78 Symptoms subsiding. Standing 67 148/76 Lexiscan injection paired w/ low level exercise. Patient walked on treadmill at 0.8 mph / 0% grade. MPI Conclusion The patient's ejection fraction was 57% with stress. There were no wall motion abnormalities. There is no evidence of ischemia or infarct on the imaging portion exam. This represents a normal SPECT stress test. Radiologist Interpretation Radiologist Interpretation by: Carl Campos MD Interpretation Date/Time: 08/11/2021 15:41:50
[2021-08-10] MEDS: Regadenoson 0.4 MG/5 ML SYR IVP (11:06)
== END 2021-08-10 01:25 ==
LOC: DI 01:06
PROVIDERS: PCP Nurse Practitioner; Visit Provider Student in an Organized Health Care Education/Training Program
DX: R07.9 Chest pain, unspecified (principal); R06.09 Other forms of dyspnea; Z82.49 Family history of ischemic heart disease and other diseases of the circulatory system; E78.5 Hyperlipidemia, unspecified; Z87.891 Personal history of nicotine dependence; J44.9 Chronic obstructive pulmonary disease, unspecified; J45.909 Unspecified asthma, uncomplicated
CPT/HCPCS: 78452; 93016; 93018; 93017; J2785

== ENCOUNTER 2021-09-14 14:58 | Outpatient (REF) | payer OTHER, SELFPAY | END 2021-09-14 14:59 | disposition home or self-care (01) | LOC: LBN 14:58 | PROVIDERS: PCP Nurse Practitioner; Visit Provider Obstetrics & Gynecology Gynecology | DX: R10.2 Pelvic and perineal pain (principal) | CPT/HCPCS: 87077; 87086; 87186 ==

== ENCOUNTER 2021-10-07 01:11 | Outpatient (CLI) | payer OTHER, SELFPAY ==
--- NOTE | 2021-10-07 06:45 | DI.US_ITS ---
Exam(s) US PELVIS TRANSVAGINAL EXAM: US PELVIS TRANSVAGINAL CLINICAL HISTORY: RLQ pain. burning with radiation to R side,r10.2 TECHNIQUE: Transabdominal and transvaginal imaging was performed using standard protocol. Transabdo yolanda images are limited by lack of urinary bladder distension. COMPARISON: US PELVIS ULTRASOUND *(P) from 02/15/2012 FINDINGS: KIDNEYS: Kidneys are symmetric in size. No evidence of renal calculi. No evidence of hydronephrosis. No renal mass or cyst identified. UTERUS: Anteverted. 4.0 x 1.8 x 3.1 cm Endometrium: 3 millimeters. Fluid within the endometrial cavity, 2 millimeters in thickness. No v isible polyp. Myometrium: Unremarkable. Cervix: Unremarkable. OVARIES: Not visualized. CUL-DE-SAC: Free fluid: None. IMPRESSION: 1. Normal-sized uterus. Fluid within the endometrial cavity without evidence of focal abnormality. 2. Nonvisualization of the ovaries. DATA REPOSITORY:
== END 2021-10-07 01:31 ==
LOC: DI 01:11
PROVIDERS: PCP Nurse Practitioner; Visit Provider Obstetrics & Gynecology Gynecology
DX: R10.2 Pelvic and perineal pain (principal); R10.31 Right lower quadrant pain; R30.0 Dysuria
CPT/HCPCS: 76830; 76856

== ENCOUNTER 2021-10-23 17:12 | Emergency (ER) | payer OTHER, SELFPAY ==
[2021-10-23 17:19] VITALS: BP 132/79; PULSE 70; RESP 18; TEMP 36.3; O2SAT 95
--- NOTE | 2021-10-23 17:30 | DI.RAD_ITS ---
Exam(s) XR RIBS RT W PA LAT CHEST EXAM: XR RIBS RT W PA LAT CHEST CLINICAL HISTORY: right rib pain @ rib 6ish, r/o fx vs pn eumothorax TECHNIQUE: 2D digital imaging was performed. COMPARISON: CR XR CHEST 2V PA LATERAL from 01/26/2021 FINDINGS: RIGHT RIB CAGE: No obvious right rib fractures. Compression fracture lower thoracic spine unchanged from 01/26/2021 CHEST X-RAY TWO VIEWS: Heart size normal. Mediastinum not widened. Lungs are clear. No infiltrates nor pleural effusions. No pneumothorax. No contusion IMPRESSION: 1. No right rib fractures. No rib lesions. 2. No ipsilateral lung nor pleural abnormality evident. No pneumothorax. DATA REPOSITORY: RADIATION DOSE DELIVERED:
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
[2021-10-23] MEDS: Acetaminophen 500 MG TAB 1000 MG PO (17:45)
[2021-10-23] MEDS: Lidocaine 5% Patch 1 PATCH TP (17:46)
--- NOTE | 2021-10-23 18:43 | DI.VRAD_ITS ---
PROCEDURE INFORMATION: Exam: XR Right Ribs Exam date and time: 10/23/2021 5:40 PM Age: 71 years old Clinical indication: Chest wall pain; Patient HX: Right rib pain rib 6ish. ; Additional info: R/O FX vs pneumothorax TECHNIQUE: Imaging protocol: XR Right ribs. Views: 2 views. COMPARISON: CR XR CHEST 2V PA LATERAL 01/26/2021 2:55 PM FINDINGS: Bones/joints: No acute fracture identified Pleural space: No pneumothorax Soft tissues: Normal. IMPRESSION: No acute findings. PROCEDURE INFORMATION: Exam: XR Chest Exam date and time: 10/23/2021 5:40 PM Age: 71 years old Clinical indication: Chest wall pain; Patient HX: Right rib pain rib 6ish. ; Additional info: R/O FX vs pneumothorax TECHNIQUE: Imaging protocol: XR of the chest. Views: 2 views. COMPARISON: CR XR CHEST 2V PA LATERAL 01/26/2021 2:55 PM FINDINGS: Lungs: Hyperexpanded lung au consistent with COPD. Pleural spaces: Unremarkable. No pleural effusion. No pneumothorax. Heart/Mediastinum: Mild cardiomegaly Vasculature: Tortuous aorta Bones/joints: Kyphosis of the thoracic spine with multiple midthoracic compression fractures.. IMPRESSION: 1. Hyperexpanded lung au consistent with COPD. 2. Kyphosis of the thoracic spine with multiple midthoracic compression fractures.. 3. No pneumothorax Dictated and Authenticated by: Ed Valadez MD. Ordering:ALFREDO Cage MD
[2021-10-23] MEDS: Diclofenac 1% Gel 100 GM TUBE TP (19:06)
== END 2021-10-23 19:16 | disposition home or self-care (01) ==
PROVIDERS: Emergency Provider Student in an Organized Health Care Education/Training Program; PCP Nurse Practitioner
DX: R07.81 Pleurodynia (principal); R07.1 Chest pain on breathing
CPT/HCPCS: 99283; 71046; 71100

== ENCOUNTER 2022-01-21 09:24 | Outpatient (CLI) | payer OTHER, SELFPAY ==
--- OUTSIDE RECORDS SUMMARY | 2022-01-21 09:27 | XMS_ITS ---
:1950 Author Care Team Providers Name Role Phone [facility] Primary Care Provider [phone] KYAW ABBASI NP Primary Care Provider [phone] Allergies Code Code System Name Reaction Severity Status Onset 704 RxNorm Amitriptyline ? ? Active ? 1191 RxNorm Aspirin ? ? Active ? 6685 RxNorm Diclofenac ? ? Active ? 8343113 RxNorm Latex ? ? Active ? 8299 RxNorm Naproxen ? ? Active ? 8356 RxNorm Piroxicam ? ? Active ? 8787 RxNorm Propranolol ? ? Active ? 73943 RxNorm Ropinirole ? ? Active ? Medications Name Status Start Date Stop Date ? ? acetaminophen 500 mg tablet Active ? Not available Take 2 tablets 3 times a day by oral route as needed. albuterol sulfate HFA 90 mcg/actuation aerosol inhaler Active ? Not available alendronate 70 mg tablet Active ? Not hattie ilable Anoro Ellipta 62.5 mcg-25 mcg/actuation powder for Active ? Not available inhalation budesonide-formoterol HFA 160 mcg-4.5 mcg/actuation aerosol inha ler Active ? Not available Inhale 2 puffs twice a day by inhalation route. calcium carbonate-vitamin D3 500 mg (1,250 mg)-500 unit tablet A ctive ? Not available Take 2 tablets every day by oral route. celecoxib 200 mg capsule Active ? Not hattie ilable Colace 100 mg capsule Active ? Not availa ble Take 1 capsule every day by oral route. doxycycline hyclate 100 mg capsule Active ? Not available estradiol 0.01% (0.1 mg/gram) vaginal cream Active ? Not available fluticasone propionate 50 mcg/actuation nasal Active ? Not available spray,suspension Futuro Restoring Medium Active ? Not avai lable halobetasol propionate 0.05 % topical cream Active ? Not available ibuprofen Active ? Not available 600mg Q8hrs PRN Incruse Ellipta 62.5 mcg/actuation powder for inhalation Active ? Not available loratadine 10 mg tablet Active ? Not avai lable Take 1 tablet every day by oral route. meclizine 12.5 mg tablet Active ? Not hattie ilable Take 2 tablets 3 times a day by oral route. melatonin-pyridoxine (vit B6) Active ? No t available 1 tab at HS Metamucil (with sugar) Active ? Not avail able 3gm daily metronidazole 500 mg tablet Active ? Not available Take 1 tablet every 8 hours by oral route. multivitamin Active ? Not available daily Myrbetriq 25 mg tablet,extended release Active ? Not available nitrofurantoin monohydrate/macrocrystals 100 mg capsule Active ? Not available nystatin 100,000 unit/gram topical cream Active ? Not available nystatin 194159 unit/g topical cream Active ? Not available APPLY TO THE AFFECTED AREA(S) BY TOPICAL ROUTE 2 TIMES PER DAY omeprazole 40 mg capsule,delayed release Active ? Not available pramipexole 0.125 mg tablet Active ? Not available ranitidine 150 mg tablet Active ? Not hattie ilable ranitidine 300 mg capsule Active ? Not av ailable Take 1 capsule every day by oral route. ranitidine 300 mg tablet Active ? Not hattie ilable sucralfate 1 gram tablet Active ? Not hattie ilable Symbicort Active ? Not available 2 puffs BID Problems Name Status Onset Date Source ? Chronic Obstructive Lung Disease Active 06/06/2019 ? Gastroesophageal Reflux Disease Active 06/06/2019 ? Hiatal Hernia Active 06/06/2019 ? Low Back Pain Active 06/06/2019 ? Hemangioma Active 08/27/2019 ? Depressive Disorder Active 08/27/2019 ? Deep Venous Thrombosis Active 08/27/2019 ? Erosive Esophagitis Active 08/27/2019 ? Gastritis Active 08/27/2019 ? Procedures Date Name Performed by ? 09/07/2019 LDCT, Chest, for Lung Cancer Screening X ray [facility] [address], [place] [address] ([address]) 11/02/2019 CT, Chest, W/o Contrast Xray [facility] [address], [place] [address] ([place]) Results Lab Results None recorded. Past Encounters None recorded. Social History Tobacco Smoking Status Former Smoker (1 pack per day) Notes : quit in 2008 Vaccine List Vaccine Type influenza, injectable, quadrivalent 08/16/2019 pneumococcal conjugate PCV 13 07/14/2015 02/21/2018 pneumococcal polysaccharide PPV23 05/04/2012 Tdap 05/04/2018 Plan of Care Reminders Provider Appointments None recorded. ? ? Lab None recorded. ? ? Referral None recorded. ? ? Procedures None recorded. ? ? Surgeries None recorded. ? ? Imaging None recorded. ? ? Vitals 11/02/2019 09:45AM Office 15 Height Weight BMI Blood Pressure 160.02 cm 75.9 kg 29.6 kg/m2 123/78 mm[Hg] 09/07/2019 01:00PM New Patient 45 Height Weight BMI Blood Pressure 160.02 cm 75 kg 29.3 kg/m2 133/76 mm[Hg]
[2022-01-21 10:20] VITALS: BP 114/67; PULSE 70; RESP 20; TEMP 36.5; O2SAT 90
[2022-01-21 11:35] VITALS: BP 116/71; PULSE 65; RESP 20; TEMP 36.4; O2SAT 94
== END 2022-01-21 09:25 | disposition home or self-care (01) ==
LOC: INF 09:25
PROVIDERS: PCP Nurse Practitioner; Visit Provider Family Medicine
DX: U07.1 COVID-19 (principal)
CPT/HCPCS: 96374; Q0222

== ENCOUNTER 2022-01-27 04:06 | Outpatient (CLI) | payer OTHER, SELFPAY ==
--- NOTE | 2022-01-27 07:15 | DI.RAD_ITS ---
Exam(s) XR LUMBAR SPINE COMPLETE EXAM: XR LUMBAR SPINE COMPLETE CLINICAL HISTORY: R/O new compression fractures, OSTEOPOROSIS, LOW BACK PAIN, Z87.81, M81.0. TECHNIQUE: 2D digital imaging was performed of the lumbar spine. Five images were obtained. AP, la teral, right oblique, left oblique and L5-S1 spot views were obtained. COMPARISON: CR XR DEXA BONE DENSITY W/WO MARYAN from 11/18/2020 FINDINGS: BONES: No fracture or destructive lesion. There are endplate osteophytes at several levels of the lum bar spine but particularly at L1-L2. Degenerative changes of the facets are seen at L4-5 and L5-S1. T here is osteopenia. DISKS: There is disc space narrowing at L1-L2. ALIGNMENT: Lumbar spinal alignment is within normal limits. No spondylolysis or spondylolisthesis. SOFT TISSUE: Atherosclerosis is present. The patient has a prior left total hip replacement. IMPRESSION: 1. Moderate degenerative changes in the lumbar spine. 2. No acute compression fracture or subluxation in the lumbar spine. DATA REPOSITORY: RADIATION DOSE DELIVERED:
--- NOTE | 2022-01-27 07:15 | DI.RAD_ITS ---
Exam(s) XR THORACIC SPINE COMPLETE EXAM: XR THORACIC SPINE COMPLETE CLINICAL HISTORY: R/O new compression fractures, OSTEOPOROSIS, PAIN, Z87.81, M81.0. TECHNIQUE: 2D digital imaging was performed of the thoracic spine. Three views were obtained. AP, swimmer's and lateral views were obtained. COMPARISON: CR,XR XR RIBS RT W PA LAT CHEST from 10/23/2021 FINDINGS: BONES: There old compression fracture deformities of T10 and T12. No new compression fractures are s een in the thoracic spine. The bones are osteopenic. Small endplate osteophytes are seen throughout the thoracic spine. DISKS:There is again mild exaggeration of the thoracic kyphosis. Interverebral disc spaces are maint ained. SOFT TISSUE: Visualized lungs are clear. IMPRESSION: 1. Old T10 and T12 compression fractures. 2. No acute compression fractures in the thoracic spine. DATA REPOSITORY: RADIATION DOSE DELIVERED:
== END 2022-01-27 04:07 | disposition home or self-care (01) ==
LOC: LBO 04:06
PROVIDERS: PCP Nurse Practitioner; Visit Provider Nurse Practitioner Adult Health
DX: M54.59 Other low back pain; M81.0 Age-related osteoporosis without current pathological fracture; Z87.81 Personal history of (healed) traumatic fracture; M48.54XD Collapsed vertebra, not elsewhere classified, thoracic region, subsequent encounter for fracture with routine healing; M85.88 Other specified disorders of bone density and structure, other site; M47.817 Spondylosis without myelopathy or radiculopathy, lumbosacral region
CPT/HCPCS: 72072; 72110

== ENCOUNTER 2022-02-10 03:41 | Outpatient (CLI) | payer OTHER, SELFPAY ==
[2022-02-10 07:16] LABS: HCT 37.3 % (36.0-46.0); MCH 30.5 pg (27.0-33.0); MCHC 32.2 % (32.0-36.0); MCV 95 fL (80-95); Platelet Count 209 10^3/uL (130-400); RBC 3.93 10^6/uL (3.93-5.22); RDW 13.2 % (11.7-14.6); RDW-SD 46.2 fL; WBC 5.96 10^3/uL (4.4-10.8)
[2022-02-10 07:57] LABS: ALT 22 U/L (14-59); AST 18 U/L (15-37); Albumin 3.8 g/dL (3.4-5.0); Alkaline Phosphatase 66 U/L (46-116); Anion Gap 8.4 mmol/L (3-11); BUN 21 mg/dL (7-18); Bilirubin, Total 0.3 mg/dL (0.2-1.0); CO2 30.6 mmol/L (21.0-32.0); CREATININE 0.9 mg/dL (0.55-1.02); Calcium 9.1 mg/dL (8.5-10.1); Chloride 103 mmol/L (98-107); Glucose 87 mg/dL (74-106); Potassium 3.8 mmol/L (3.5-5.1); Sodium 142 mmol/L (136-145); Total Protein 7.3 g/dL (6.4-8.2)
[2022-02-10 08:29] LABS: Calculated LDL 140 mg/dL (<100); Cholesterol 224 mg/dL (<200); HDL Cholesterol 64 mg/dL (40-60); Triglyceride 104 mg/dL (<150); Vitamin B12 509 pg/mL (193-986)
[2022-02-10 08:30] LABS: Folate > 20.0 ng/mL (8.6-20.0)
[2022-02-10 08:41] LABS: PHOSPHORUS 4.1 mg/dL (2.6-4.7)
[2022-02-11 05:35] LABS: Vitamin D 25 Total 45.4 ng/mL (30-100)
[2022-02-11 08:40] LABS: Parathyroid Hormone,Intact 36 pg/mL (19-88)
== END 2022-02-10 03:42 | disposition home or self-care (01) ==
LOC: LBO 03:44
PROVIDERS: PCP Nurse Practitioner; Visit Provider Nurse Practitioner Adult Health
DX: M54.50 Low back pain, unspecified (principal); M81.0 Age-related osteoporosis without current pathological fracture; Z87.81 Personal history of (healed) traumatic fracture; E78.5 Hyperlipidemia, unspecified; J45.909 Unspecified asthma, uncomplicated
CPT/HCPCS: 36415; 80048; 80053; 80061; 82306; 85027; 82607; 82746; 83970; 84100

== ENCOUNTER 2022-02-24 01:26 | Outpatient (CLI) | payer OTHER, SELFPAY ==
--- NOTE | 2022-02-24 06:45 | DI.CTLCSR_ITS ---
Exam(s) CT CHEST LUNG CANCER SCREEN EXAM: CT CHEST LUNG CANCER SCREEN CLINICAL HISTORY: Screening for lung cancer, former smoker, Z87.891 TECHNIQUE: Imaging Protocol: Axial computed tomography images with coronal and sagittal reformatted images were created and reviewed COMPARISON: CT CT CHEST LUNG CANCER SCREEN from 10/15/[address] CHEST WO from 03/28/2020 FINDINGS: Tracheobronchial tree: Patent where visualized. Pulmonary parenchyma: No consolidation or dominant measurable mass. Centrilobular emphysematous richmond es are present. There is stable scarring in the lung apices, right greater than left. Lung Nodules: There is a stable 3.4 mm nodule in the right upper lobe. There is a 4 mm nodule in the left upper lobe. This was not present on the prior examination. Mediastinum and Sil: No dominant adenopathy or fluid collection. The esophagus is unremarkable. Thyroid gland: Unremarkable. Lymph nodes: Unremarkable. Pleura: No effusion or pneumothorax. Heart: The heart is not dilated. Mild coronary artery calcification is present. No pericardial effus ion. Aorta: Thoracic aorta non-dilated.Atherosclerosis is present. Upper abdomen: Unremarkable. Soft Tissues: Unremarkable. Bones: Within normal limits. There is a stable lower thoracic compression deformity. IMPRESSION: 1. Stable right upper lobe pulmonary nodule. New 4 mm left upper lobe pulmonary nodule. Lung RADS Cat 2 - Benign Appearance / Behavior: Nodules with a very low likelihood of becoming a clin ically active cancer due to size or lack of growth Lung-RADS 1.0 CATEGORIES: Category 0 - Prior chest CT exam(s) being located for comparison. Category 1 - Annual screening in 12 months. No nodules or definitely benign nodules. Category 2 - Annual screening in 12 months. Benign appearance. Nodules with low likelihood of becomin g active cancer. Category 3 - 6-month follow-up. Probably benign. Short-term follow-up suggested. Nodules with low lik elihood of becoming active cancer. Category 4A - 3-month follow-up and CT/PET if >8 mm in size. Suspicious finding. Findings which requi re additional testing. Category 4B - Findings which require additional testing and tissue sampling. Suspicious finding. Category 4X - Category 3 or 4 nodules with additional features or imaging findings that increases the suspicion of malignancy. Modifier S- Potentially clinically significant finding. (Non lung cancer) RADIATION DOSE DELIVERED: 77.56mGy.cm Total DLP 1.84mGyCTDIvol 77.56mGy.cm Total DLP 1.84mGy CTDIvol DATA REPOSITORY: All CT scans at this facility are submitted to the National Radiology Data Registry (NRDR) Dose Index Registry (DIR) with the [employer] (ACR). RADIATION OPTIMIZATION: All CT scans at this facility use at least one of these dose optimization te chniques: automated exposure control; mA and/or kV adjustment per patient size (includes targeted exa ms where dose is matched to clinical indication); or iterative reconstruction.
--- NOTE | 2022-02-24 07:30 | DI.US_ITS ---
APPROVED REPORT EXAM: Comprehensive 2D, Doppler, and color-flow Echocardiogram Patient Location: Out-Patient Hearing Aide Technician: Genesis Hercules RDCS (AE) Indications: Orthopnea, Chest pain, Dyspnea Other Information Study Quality: Adequate Conclusion Normal left ventricular wall thickness and chamber size. Estimated ejection fraction is 60%. Wall m otion is normal Normal right ventricular size and systolic function Both atria are normal in size No structural or hemodynamically significant valvular disease Estimated right ventricular systolic pressure is 25 mmHg Wall motion Left Ventricle The left ventricle is normal size. The left ventricular systolic function is normal. The left ventric ular ejection fraction is within the normal range. There is normal left ventricular wall thickness. T here is normal LV segmental wall motion. There is no ventricular septal defect visualized. LVEF is 60 %. Right Ventricle The right ventricle is normal size. The right ventricular systolic function is normal. The RVSP is 25 .3 mmHg. Atria The left atrium size is normal. The right atrium size is normal. The interatrial septum is intact wit h no evidence for an atrial septal defect. Aortic Valve The aortic valve is normal in structure. Aortic valve is trileaflet. There is no aortic valvular sten osis. No aortic regurgitation is present. Mitral Valve The mitral valve is normal in structure. No evidence of mitral valve stenosis. Trace mitral regurgita tion. Tricuspid Valve The tricuspid valve is normal in structure. There is no tricuspid valve stenosis. Trace tricuspid reg urgitation. Pulmonic Valve The pulmonary valve is normal in structure. There is no pulmonic valvular stenosis. There is no pulmo zuleyma valvular regurgitation. Great Vessels The aortic root is normal in size. The ascending aorta is normal in size.. Aortic arch is normal in c aliber. IVC is normal in size and collapses >50% with inspiration. Pericardium There is no pericardial effusion. 2D Dimensions IVSD d PLAX 1.00 cm F: 0.6-1.0 LV Vol A2C d MOD 104.6 mL LVPW d PLAX 1.01 cm F: 0.6 - 1.0 LV Vol A4C d MOD 114.9 mL LVID d PLAX 4.28 cm F: 3.8 - 5.2 LA vol/ BSA A2C s A-L 23.0 mL/m2 LVDs 2.95 cm F: 2.2 - 3.5 LA vol/ BSA A4C s A-L 16.4 mL/m2 Ao Root d 2.70 cm F: 2.7 - 3.3 LA Vol/ BSA Biplane s A-L 21.4 mL/m2 RA Area A4C 11.68 cm2 LA Area A4C s MOD 11.54 cm2 RA Vol/ BSA A4C s A-L 16.8 mL/m2 LA Area A2C s MOD 15.06 cm2 Ao Asc Diam d 3.25 cm F: 2.3 - 3.1 LV EF A4C MOD 59.4 % LV EF Teichholz 59.1 % LV EF A2C MOD 60.2 % LVEF (Reis's) 59.27 % F: 54 - 74 LV EF Biplane MOD 59.3 % LV Volume 87.94 mL F: 46 - 106 SV 65.51 mL LV Volume Index 52.03 mL/m2 F: 29 - 61 SV Index 38.74 mL/m2 LV Vol Biplane MOD 110.5 mL FS 31.00 % M-Mode TAPSE 2.61 cm (M/F) >1.7 LV Diastology MV E' medial 0.075 (>0.07 m/s) E/A Ratio 0.7 LV E/e MED 9.30 (<14) MV E Vmax 0.70 (0.4-1.3 m/s) MV E' lateral 0.072 (>0.1 m/s) MV A Vmax 1.00 (0.4-1.3 m/s) LV E/e LAT 9.70 (<14) MV E/A Ratio 0.69 MV E/E' medial 9.30 MV E/E' lateral 9.73 Aortic Valve LVOT Area 2.84 cm2 AoV Area Vmax 2.11 cm2 LVOT Vmax 0.90 m/s AoV Area/ BSA (Vmax) 1.25 cm2/m2 LVOT Mean Yovani. 0.53 m/s FLAKO Mean Yovani. 1.93 cm2 LVOT Peak Grad 3.2 mmHg FLAKO Mean Yovani. Index 1.14 cm2/m2 LVOT Mean Grad 1.4 mmHg LVOT VTI 0.178 m LVOT Diam s 1.90 cm AoV Vmax 1.21 m/s Velocity Ratio 0.74 AoV Mean Yovani. 0.78 m/s AoV Peak Grad 5.8 mmHg LVOT SV 50.60 mL AoV Mean Grad 2.8 mmHg AoV VTI 0.229 m AoV Area VTI 2.21 cm2 AoV Area/ BSA (VTI) 1.31 cm/m2 Mitral Valve MV DT 318 (160-240 msec) MV PHT 92 msec MV Area PHT 2.39 cm2 MV VTI 0.310 m MV Area VTI 1.63 (4.0-6.0 cm2) Pulmonary Valve PV Vmax 0.77 (0.5-1.5 m/s) RVOT Peak Gr. 1.31 mmHg PV Peak Grad 2.4 mmHg RVOT Mean Gr. 0.70 mmHg PV Mean Grad 1.3 mmHg RVOT VTI 0.136 m PV VTI 0.171 m RVOT Vmax 0.57 m/s Tricuspid Valve TR Peak Grad 22.3 mmHg TR Vmax 2.37 m/s RA Pressure 3.00 mmHg RVSP (TR) 25.3 mmHg
== END 2022-02-24 01:46 ==
PROVIDERS: PCP Nurse Practitioner; Visit Provider Student in an Organized Health Care Education/Training Program
DX: R06.01 Orthopnea (principal); R07.9 Chest pain, unspecified; Z87.891 Personal history of nicotine dependence
CPT/HCPCS: 71271; 93306

== ENCOUNTER 2022-03-23 12:00 | Emergency (ER) | payer OTHER, SELFPAY ==
[2022-03-23 12:20] VITALS: BP 115/62; PULSE 89; RESP 16; TEMP 37.1; O2SAT 94
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
--- NOTE | 2022-03-23 15:13 | DI.RAD_ITS ---
Exam(s) XR ELBOW RT COMPLETE EXAM: XR ELBOW RT COMPLETE CLINICAL HISTORY: pain. TECHNIQUE: 2D digital imaging was performed. COMPARISON: No exams were available for comparison FINDINGS: 3 views No evidence of obvious fracture although there is significant elevation of both the anterior and post erior fat pads indicating a joint effusion or hemarthrosis. There is irregularity of the radial head which may be related to healing fracture site. No swelling of the olecranon bursa. Epicondyles unremarkable. No osseous lesions. IMPRESSION: Osseous findings as above. Joint effusion/hemarthrosis. DATA REPOSITORY: RADIATION DOSE DELIVERED:
--- NOTE | 2022-03-23 15:13 | DI.RAD_ITS ---
Exam(s) XR SHOULDER RT COMPLETE 2+V EXAM: XR SHOULDER RT COMPLETE 2+V CLINICAL HISTORY: pain. TECHNIQUE: 2D digital imaging was performed. COMPARISON: No exams were available for comparison FINDINGS: Five views There is no evidence of acute fracture or dislocation. However, there is amorphous soft tissue calci fication in the subacromial space. There is a prominent osteophytic ridge on the undersurface of the acromion causing impingement. Calcification is seen either in or adjacent to the superior labrum. There is chondrocalcinosis in the [place] cartilage over the humeral head. There is no osteophyte o n the inferior articular surface of the humeral head. Bone density is age-appropriate. IMPRESSION: Calcific rotator cuff tendinitis-bursitis. Impingement at the acromial level by large inferior osteo phytic ridge at this level. Suspect significant rotator cuff pathology DATA REPOSITORY: RADIATION DOSE DELIVERED:
[2022-03-23] MEDS: Ondansetron O.D.T. 4 MG TABEF PO (15:40)
[2022-03-23 16:15] VITALS: BP 115/62; PULSE 89; RESP 16; TEMP 37.1; O2SAT 94
== END 2022-03-23 16:18 | disposition home or self-care (01) ==
PROVIDERS: Emergency Provider Physician Assistant; PCP Nurse Practitioner
DX: M25.511 Pain in right shoulder (principal); M25.521 Pain in right elbow; X50.3XXA Overexertion from repetitive movements, initial encounter
CPT/HCPCS: 99284; 73030; 73080; 99283

== ENCOUNTER → 2022-05-25 11:21 | Outpatient (BNVA) | payer OTHER, SELFPAY | PROVIDERS: PCP Nurse Practitioner; Referring Provider Nurse Practitioner; Visit Provider Student in an Organized Health Care Education/Training Program | DX: M19.021 Primary osteoarthritis, right elbow (principal); J44.9 Chronic obstructive pulmonary disease, unspecified; R06.02 Shortness of breath; R07.9 Chest pain, unspecified; M19.011 Primary osteoarthritis, right shoulder | CPT/HCPCS: 20610; 99203; 99214; J1030 ==

== ENCOUNTER 2022-07-16 00:50 | Outpatient (CLI) | payer OTHER, SELFPAY ==
--- OUTSIDE RECORDS SUMMARY | 2022-07-16 00:52 | XMS_ITS | Encounter Summary ---
:1950 Author Organization [facility] Address [address] [place] [address] Care Team Providers Name Role Phone Mila Masters PSYCHIATRIST Primary Care Provider Encounter Details Date Type Department Care Team Description 09/11/2019 Lab Requisition [facility] Wilman Gerardo for other Pathology & MD Edgar general examination Laboratory Medicine [address], [place] 111 [facility] [address] [place], [place] [id number] Social History Tobacco Use Types Packs/Day Years Used Date Smoking Tobacco: Never Assessed Sex Assigned at Date Recorded Not on file documented as of this encounter Plan of Treatment Not on filedocumented as of this encounter Procedures Procedure Name Priority Date/Time Associated Diagnosis Comme nts SURGICAL PATHOLOGY Today 09/11/2019 7:33 EST Encounter for o ther Results for this general examination procedur e are in the results section. documented in this encounter Results SURGICAL PATHOLOGY (09/11/2019 7:33 EST) Component Value Ref Test Analysis Performed At [facility] Method Time Signature Final A. STOMACH, PYLORUS, BIOPSY: 09/13/2019 [facility] MEDICAL Electronically Diagnosis - Pyloro-duodenal (pyloric c hannel) musosa with no significant diagnostic abnormality. 15:40 EST CENTER sign ed by Ratna Fernandez MD B. STOMACH, POLYP, BIOPSY: SER VICES on 09/13/2019 at - Fundic gland polyp. 1540 C. STOMACH, CARDIA, BIOPSY: - Gastric fundic mucosa with mild focal acute erosive gastri tis. - Negative for Helicobacter pylori microorganisms on H&E sta ined sections. D. ESOPHAGUS, GE JUNCTION, BIOPSY: - Fragment of gastric fundic -type mucosa with no significant diagnostic abnormality. - Negative for intestinal metaplasia and dysplasia. - Squamous mucosa with no significant diagnostic abnormality . Clinical History of 09/13/2019 [facility] MEDICAL History Erosive 15:40 [facility] esophagitis LABORATORY gastritis on PPI. SERVICES Attestation By the signature 09/13/2019 [facility] MEDICA L Electronically below, the 15:40 [facility] signed by Trev attending LABORATORY MasoudRatna MD physician SERVICES on 0 at certifies that 1540 they have personally conducted a gross and/or microscopic examination of the described specimens and rendered or confirmed the above diagnosis. Gross A. Received in formalin labe lled with proper patient identification (initials O, I) and pyloric Bx are two encarnacion tissues (0.3 x 0.1 x 0.1 cm and 0.4 x 0.1 x 0.1 cm). Entirely submitted in A1. 09/13/2019 [facility] MEDICAL Description 15:40 [facility] B. Received in formalin labe lled with proper patient identification (initials O, I) and gastric polyp is a single encarnacion-white tissue fragment (0.4 x 0.2 x 0.1 cm). Submitted intact in B1. LABORATORY SERVICES C. Received in formalin labe lled with proper patient identification (initials O, I}) and body of cardio stomach Bx are two encarnacion tissues (0.3 x 0.1 x 0.1 cm and 0.4 x 0.2 x 0.1 cm). Entirely submitted in C1. D. Received in formalin labe lled with proper patient identification (initials O, I) and GE junction Bx are 3 encarnacion-white tissues (0.1 x 0.1 x 0.1 cm to 1.2 x 0.2 x 0.1 cm). Entirely submitted in D1. MIHRAB ALI 09/12/2019 08:33 Scanned Images 09/13/2019 [facility] MEDICAL 15:40 [facility] LABORATORY SERVICES Specimen Anatomical Location Collection Method Collection Time Received Time (Source) / Laterality / Volume Tissue ENTIRE ESOPHAGUS / 09/11/2019 7:33 2019 Unknown EST 17:30 EST Tissue specimen SPECIMEN FROM 09/11/2019 7:33 09/11/19 20 (specimen) STOMACH OBTAINED BY EST 17:30 ES T TOTAL GASTRECTOMY / Unknown Tissue specimen 09/11/2019 7:33 0 (specimen) EST 17:30 EST (Gastric/Stomach , Cardia) Tissue specimen ENTIRE ESOPHAGUS / 09/11/2019 7:33 03/2020 (specimen) Unknown EST 17:30 EST Edgar Gerardo MD PATHOLOGY ORDERABLES Performing Organization Address City/State/ZIP Code Phon e Number [facility] [address] [place] [address] SERVICES documented in this encounter Visit Diagnoses Diagnosis Encounter for other general examination documented in this encounter Care Teams Pewter Finisher Relationship Specialty Start Date End Date Mila Masters, HEBERT PCP - General 03/14/19 documented as of this encounter
--- OUTSIDE RECORDS SUMMARY | 2022-07-16 00:52 | XMS_ITS | Encounter Summary ---
:1950 Author Organization [facility] Address [address] [place] [address] Care Team Providers Name Role Phone Unavailable Primary Care Provider Unavailable Encounter Details Date Type Department Care Team Description 12/24/2010 Results Only [facility] Alan Vyas MD Laboratory Services - [address] [place] [address] [address] [facility] [place] [address] [phone] Social History Tobacco Use Types Packs/Day Years Used Date Smoking Tobacco: Never Assessed Sex Assigned at Date Recorded Not on file documented as of this encounter Plan of Treatment Not on filedocumented as of this encounter Procedures Procedure Name Priority Date/Time Associated Diagnosis Comme [facility] SURGICAL PATHOLOGY Routine 12/24/2010 0:00 EDT Re sults for this procedure are i n the results section. documented in this encounter Results SURGICAL PATHOLOGY (12/24/2010 0:00 EDT) Component Value Ref Test Analysis Performed At [facility] Method Time Signature Pathology SURGICAL PATHOLOGY REPORT ? FRANCES HER Report: Reports generated via electr TalentBin interface contain original data; ? MAXIMO DAVIS however they are lacking the format of the original report. ? Caution should be taken when reading/interpreting unformatted reports. ? Name: ? OLCOTT, DESTINI A ? Accession #: ? [id number] ? : ? 1950 (Age: 60) ??F ? Collec t Date: ? 12/24/2010 ? Location: ? [facility] ? R eceive Date: ? 12/24/2010 ? Provider: JOEY DEBO MD ? Copy to: RITU L SESAY N P ? Final Pathologic Diagnosis: ? Esophagus, 35 cm, bio psies: ? 1. ?Columnar (g astric-type) mucosa with chronic inflammation. ? 2. ? Squamous mucosa wit h chronic inflammation and reactive epithelial ? changes. ? 3. ? No intestinal mucos a or dysplasia identified. ? Document reviewed and electr onically signed by: ? BRENDENDELIA OBANDO MD ? Report ??Date: 12/28/2010 17 :49 ? By the signature above, the attending physician certifies that he/she has ? personally conducted a gross and/or microscopic examination of the described ? specimens and rendered or co nfirmed the above diagnosis. ? Specimen(s) Received: ? Bx esophagus 35 cm ? Clinical History: ? GERD ? Gross Description: ? Received in formalin labelled [employer], Destini and biopsy esophagus 35 cm are five pink-encarnacion, irregular soft tissues ranging from 0.3 x 0.2 x 0.1 cm to 0.4 x 0.3 x 0.2 cm, submitted in toto as (A1) and (A2). ??(Viri Gusman)/[facility] ? End of Report ? Specimen (Source) Anatomical Collection Method Collection Time Re ceived Time Location / / Volume Laterality 12/24/2010 12/24/2010 15:2 7 EDT Joey Vyas MD PATHOLOGY ORDERABLES Performing Organization Address City/State/[facility] Phon e Number [facility] [address] [place] [address] SERVICES [facility] [address] [place] [address] documented in this encounter Visit Diagnoses Not on filedocumented in this encounter
--- OUTSIDE RECORDS SUMMARY | 2022-07-16 00:52 | XMS_ITS | Encounter Summary ---
:1950 Author Organization [facility] [place] [address] Care Team Providers Name Role Phone Brittany Huynh MD Primary Care Provider Reason for Referral Surgical (Routine) - Closed Specialty Diagnoses / Procedures Referred By Contact Refer red To Contact Orthopaedics Diagnoses Chronic back pain Alina Bella APRN [facility] Spine [address] [place] [phone] Referral ID Status Reason Start Date Expiration Date Visits V isits Requested Authorized [id number] Closed Consult, 03/11/2015 03/10/2016 3 3 Test & Treat urgical (Routine) - Complete-Ref Provider Notified Specialty Diagnoses / Procedures Referred By Contact Refer red To Contact Orthopaedics Diagnoses Pain in left hip Alina Bella APRN [facility] Orth[facility]ics [address] [place] [address] [place] [address] Referral ID Status Reason Start Expiration Visits Visits Date Date Requested Authorized [id number] Complete-Ref Consult, 03/11/2015 03/10/2016 3 3 Provider Test & Notified Treat Reason for Visit Reason Comments Left Leg Pain Low Back Pain Encounter Details Date Type Department Care Team Description 03/11/2015 Office Visit Spine Center at [facility] non Alina Bella, Pain in left hip; [facility] 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 [place] [phone] PAIN MEDICINE [place] [phone] (Wo rk) Social History Tobacco Use Types Packs/Day Years Used Date Former Smoker Quit: 08/11/20 06 Smokeless Tobacco: Never Used Sex Assigned at Date Recorded Not on file documented as of this encounter Last Filed Vital Signs Vital Sign Reading Time Taken Comments Blood Pressure 136/90 03/11/2015 9:34 AM EDT Pulse - - Temperature - - Respiratory Rate - - Oxygen Saturation - - Inhaled Oxygen Concentration - - Weight 77.1 kg (170 lb) 03/11/2015 9:34 AM EDT Height 165.1 cm (5' 5) 03/11/2015 9:34 AM EDT Body Mass Index 28.29 03/11/2015 9:34 AM EDT documented in this encounter Progress Notes 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 History of present illness:This patient is a 64 y.o. female that presents to the spine center for the above chief complaints. She was sent here by her provider to see neurosurgery and orthopedics. Unfortunately she was placed on my schedule. She has left greater than right anterior lateral thigh pain to the knee with some paresthesias below the knee. Symptoms are predominantly on the left. She also has chronic low back pain and has had these symptoms for years. She's had number of injections, she's been seen by a pain clinic, she's been doing PT without relief of her symptoms. We have discussed rehabilitation program but she is absolutely not interested. Her symptoms are worse with lifting. They're anywhere from 5-10 on a scale of 10. They're prickly hot sensation mostly on the left. Her left leggives out. She doesn't sleep well. She's fallen multiple times. Exercise habits are none.. Past medical history: Restless leg syndrome and GERD Social and family history: Destini is single. She is employed at [employer] and does not use tobacco or alcohol. Problem List: There is no problem list on file for this patient. Review of Systems: Positive for urinary incontinence that is not new and negative for other GI, , or constitutional symptoms Medications and allergies were reviewed and updated. Physical Examination: This is a 64-year-old female who looks older than her stated age her shoulders, hips, knees are grossly left inspection. She is tender in the left buttock and lateral leg over thegreater trochanteric bursa. Her gait is nonantalgic. She can walk briefly on heels and toes. She hasdifficulty with single leg balancing. She has normal strength and decreased sensation in the low left lateral leg. Straight leg raises are positive for reproduction of back pain. Fabere maneuver produces hip pain. Femoral tension stretch produces hip pain. She is extremely tender over the left trochanteric bursa. Reflexes are symmetrical and there is no Khalif or clonus and Babinski with downgoing toes. Diagnostic data: She has no x-rays of her hip here today but they were ordered today. X-rays of the lumbar spine reveal facet RF arthropathy and mild compression fractures at L4 and T12. There is also an increased lordotic curve. Her MRI demonstrates multilevel foraminal and central canal stenosis butit is not more on the left side than on the right. Assessment: She has 2 problems first is left hip pain and trochanteric bursitis and the second is mild to moderate spinal stenosis don't see any evidence that the stenosis is worse on any side or the other. Plan: X-rays of the left hip. X-rays of the lumbar spine including flexion- extension films to views only. Shared decision making video spinal stenosis. Referral to orthopedics for discussion of hip treatment and referral to the spine center for discussion of surgical intervention for spinal stenosis. He only other thing I would have to offer her nonsurgically would be a referral to the pain clinic orfor the functional anabaptism program which she currently is not interested in. All questions were answered This note was written with voice recognition software documented in this encounter Plan of Treatment Scheduled Referrals Name Type Priority Associated Order Schedule Diagnoses Referral to Outpatient Referral Routine Pain in left hip Orde red: Orthopaedics 03/11/2015 Referral to Spine Outpatient Referral Routine Chronic back samaria n Ordered: Center 03/11/2015 documented as of this encounter Results XR lumbar spine 2 or 3 views (03/11/2015 11:00 AM EDT) Anatomical Region Laterality Modality L-spine N/A Radiographic Imaging Specimen (Source) Anatomical Collection Method Collection Time Re ceived Time Location / / Volume Laterality 03/11/2015 11:00 AM EDT Impressions 03/11/2015 3:33 PM EDT IMPRESSION: 1. ??Mild dynamic instability of L1 and L2. Unchanged mild retrolisthesis of L2 on L3. 2. ??Unchanged compression deformities o f T12 and L4. This report was reviewed by JUAN FREEMAN AM, MD at 03/11/2015 3:28 PM Film and interpretation reviewed by the attending Narrative 03/11/2015 3:33 PM EDT EXAMINATION: LSPINE 2 OR 3 VIEWS CLINICAL HISTORY: left greater than righ t leg pain TECHNIQUE: Lateral flexion-extension of the lumbar spine COMPARISON: MR of the lumbar spine 015. FINDINGS: No new fractures. Unchanged mild diana jen deformities of T12 and L4. There is retrolisthesis of L1 on L2 which worsens slightly on extension relative to flexion. Unchanged grade 1 retrolisthesi s of L2 on L3 which is unchanged on both flexion and extension views. No addition al sites of spondylolisthesis. There is an exaggerated lordosis of the lumbar sp ine which is unchanged. Multilevel degenerative disc changes characterized by disc space narrowing and endplate hypertrophic changes are noted. Procedure Note Juan Durant MD - 03/11/2015Formatti ng of this note might be different from the original. EXAMINATION: LSPINE 2 OR 3 VIEWS CLINICAL HISTORY: left greater than righ t leg pain TECHNIQUE: Lateral flexion-extension of the lumbar spine COMPARISON: MR of the lumbar spine 015. FINDINGS: No new fractures. Unchanged mild diana jen deformities of T12 and L4. There is retrolisthesis of L1 on L2 which worsens slightly on extension relative to flexion. Unchanged grade 1 retrolisthesi s of L2 on L3 which is unchanged on both flexion and extension views. No addition al sites of spondylolisthesis. There is an exaggerated lordosis of the lumbar sp ine which is unchanged. Multilevel degenerative disc changes characterized by disc space narrowing and endplate hypertrophic changes are noted. IMPRESSION IMPRESSION: 1. Mild dynamic instability of L1 and L2 . Unchanged mild retrolisthesis of L2 on L3. 2. Unchanged compression deformities of T12 and L4. This report was reviewed by JUAN FREEMAN AM, MD at 03/11/2015 3:28 PM Film and interpretation reviewed by the attending Alvin Anderson MD IMG DX ORDERABLES XR pelvis AP and hip 2 views of 1 hip (03/11/2015 11:00 AM EDT) Anatomical Region Laterality Modality Pelvis, Hip N/A Radiographic Imaging Specimen (Source) Anatomical Collection Method Collection Time Re ceived Time Location / / Volume Laterality 03/11/2015 11:00 AM EDT Impressions 03/11/2015 3:27 PM EDT IMPRESSION: Mild osteoarthritis of both hips with pr eserved joint spaces. This report was reviewed by JUAN FREEMAN AM, MD at 03/11/2015 3:22 PM Film and interpretation reviewed by the attending Narrative 03/11/2015 3:27 PM EDT EXAMINATION: AP PELVIS AND 2 VIEWS ONE HIP/LEFT CLINICAL HISTORY: left hip pain TECHNIQUE: AP pelvis, AP and frog-leg la teral left hip. COMPARISON: Lumbar spine MR 02/03/2015. FINDINGS: No acute fractures or dislocations. Oste oarthritis of the bilateral hips is characterized by the presence of small m arginal osteophytes. Bilateral hip joint spaces are well preserved. No radiopaque foreign bodies. Pubic symphysis and SI joints are congruent and intact. Procedure Note Juan Durant MD - 03/11/2015Formatti ng of this note might be different from the original. EXAMINATION: AP PELVIS AND 2 VIEWS ONE H IP/LEFT CLINICAL HISTORY: left hip pain TECHNIQUE: AP pelvis, AP and frog-leg la teral left hip. COMPARISON: Lumbar spine MR 02/03/2015. FINDINGS: No acute fractures or dislocations. Oste oarthritis of the bilateral hips is characterized by the presence of small m arginal osteophytes. Bilateral hip joint spaces are well preserved. No radiopaque foreign bodies. Pubic symphysis and SI joints are congruent and intact. IMPRESSION IMPRESSION: Mild osteoarthritis of both hips with pr eserved joint spaces. This report was reviewed by JUAN FREEMAN AM, MD at 03/11/2015 3:22 PM Film and interpretation reviewed by the attending Alvin Anderson MD IMG DX ORDERABLES documented in this encounter Visit Diagnoses Diagnosis Pain in left hip Pain in joint, pelvic region and thigh Chronic back pain Backache, unspecified Pain in left hip Pain in joint, pelvic region and thigh Chronic back pain Backache, unspecified documented in this encounter Care Teams Information Systems Analyst Relationship Specialty Start Date End Date Brittany Huynh MD PCP - General 02/12/15 01/15/[address] [place] [address] documented as of this encounter
--- OUTSIDE RECORDS SUMMARY | 2022-07-16 00:52 | XMS_ITS | Encounter Summary ---
:1950 Author Organization [facility] Address [address] [place] [address] Care Team Providers Name Role Phone Unavailable Primary Care Provider Unavailable Encounter Details Date Type Department Care Team Description 09/10/2004 Results Only [facility] - Bethanie Jennings MD [employer] [address] [place] [address] [place] [address] Social History Tobacco Use Types Packs/Day Years Used Date Smoking Tobacco: Never Assessed Sex Assigned at Date Recorded Not on file documented as of this encounter Plan of Treatment Not on filedocumented as of this encounter Procedures Procedure Name Priority Date/Time Associated Diagnosis Comme [facility] SURGICAL PATHOLOGY Routine 09/10/2004 0:00 EST Re sults for this procedure are i n the results section. documented in this encounter Results SURGICAL PATHOLOGY (09/10/2004 0:00 EST) Component Value Ref Test Analysis Performed At [facility] Method Time Signature Pathology SURGICAL PATHOLOGY REPORT JUAN TELLES Report: Reports generated via electronic interface contain rosie glass; MAXIMO DAVIS however they are lacking the format of the original report. Caution should be taken when reading/interpreting unformatte d reports. Name: ? DESTINI ARGUETA ? Accession #: ? [id number] ? : ? 1950 (Age: 54) ??F ? Collect Date: ? 09/10/2004 ? Location: ? [facility] ? Receive Date: ? 09/10/2004 ? Provider: PRISCILLA JENNINGS MD Copy to: KATIUSKA GOLDMAN MD ? Final Pathologic Diagnosis: A. ?Cervix, anterior lip, LEEP: 1. ?Erosion, granulation tissue, acute an d chronic inflammation consistent with previous procedure-associated changes. ??See comment. 2. ?Reactive squamous epithelial changes. 3. ?No evidence of dysplasia. B. ?Cervix, posterior lip, LEEP: 1. ?Erosion, granulation tissue, acute an d chronic inflammation consistent with previous procedure-associated changes. ??See comment. 2. ?Reactive squamous epithelial changes. 3. ?No evidence of dysplasia. Comment: ? The previous biopsy ([id number]) has been review ed and the presence of high-grade squamous intraepithelial lesion (AARON II-III) de s been confirmed. However, the current LEEP sp ecimens do not show squamous intraepithelial lesion. (Dr. De Jesus)/[facility] Document reviewed and electronically signed by: Kimberly Oconnell MD Report ??Date: 09/14/2004 15:05 By the signature above, the attending physician certifies th at he/she has personally conducted a gross and/or microscopic examin ation of the described specimens and rendered or confirmed the above diagnosis. Specimen(s) Received: A. ?Anterior lip cervix B. ?Posterior lip Clinical History: ? Cervical dysplasia, vaginal atrophy Gross Description: ? Received in formalin labelled [place] and anterior lip are two components. ??The first component is a 2 .0 x 0.6 cm product of a LEEP excision excised to a maximum depth of 0.3 cm. ??The white-encarnacion stro ma is surfaced by red-pink, hemorrhagic, granu lar mucosa with cauterized edges. ??The specimen is inked as follows: endocervix black, ectocervix blue. ??The s pecimen is sequentially sectioned from left to righ t. ??The second component is a convex, 1.5 x 1.2 cm LEEP excision e xcised to a maximum depth of 0.9 cm. ??There is a 0.9 x 0.2 cm, linear rim of hyperemic, white -pink, glistening tissue surrounded by cauterized edges. ??The spec imen is inked black and sequentially sectioned from left to right. BLOCK SPRINGER A1-A3 ?Sequenti al sections of LEEP excision surfaced by red-pink mucosa A4-A6 ?Sequential sections of concave BOB P excision with rim of hyperemic soft tissue Received in formalin labelled [place] and posterior lip is a 2.3 x 1.0 cm product of a LEEP excision e xcised to a maximum depth of 0.4 cm. ??Along one edge is a red-pink, hyperemic muc rach surrounded by cauterized edges. ??The specimen is inked as follows: ??endocervix black, ectocervix blue. ??The specimen is sequentially sectioned from right to left and submitted in its entirety as (B1) to (B3). ??(Delma Valenzuela-[place])/[facility] End of Report Specimen (Source) Anatomical Collection Method Collection Time Re ceived Time Location / / Volume Laterality 09/10/2004 09/10/2004 15:4 2 EST Priscilla Jennings MD PATHOLOGY ORDERABLES Performing Organization Address City/State/ZIP Code Phon e Number [facility] [address] [place] [address] SERVICES [facility] [address] [place] [address] documented in this encounter Visit Diagnoses Not on filedocumented in this encounter
--- OUTSIDE RECORDS SUMMARY | 2022-07-16 00:52 | XMS_ITS | Encounter Summary ---
:1950 Author Organization [facility] Address [address] [place] [address] Care Team Providers Name Role Phone Unavailable Primary Care Provider Unavailable Encounter Details Date Type Department Care Team Description 10/16/2002 Results Only [facility] - Susu Cain son, Priscilla L, IT APPLICATION ADMINISTRATOR conversion [address] [place] [phone] (Wo rk) Social History Tobacco Use Types Packs/Day Years Used Date Smoking Tobacco: Never Assessed Sex Assigned at Date Recorded Not on file documented as of this encounter Plan of Treatment Not on filedocumented as of this encounter Procedures Procedure Name Priority Date/Time Associated Diagnosis Comme [facility] CYTOPATHOLOGY Routine 10/16/2002 0:00 EST Results for this procedure are i n the results section . documented in this encounter Results CYTOPATHOLOGY (10/16/2002 0:00 EST) Component Value Ref Test Analysis Performed At [facility] Pathology CYTOPATHOLOGY REPORT CHETNA Report: [facility] Reports generated via electronic interface contain original data; however they are lacking the format of the original report. Caution should be taken when reading/interpreting unformatte d reports. Name: ? DESTINI ARGUETA ? Accession #: ? [id number] : ? 1950 (Age: 52) ??F ?Collect Date: ? 10/16/2002 Location: ? [facility] ? Receive Date: ? 10/22/2002 Provider: ?PRISCILLA SESAY IT APPLICATION ADMINISTRATOR Copy to: ? Specimen/Source: ?ThinPrep Pap Test, Cervix/Endoce rvix Last Menstrual Period: ? Treatment History: ? Miscellaneous treatment: Bilsalpingo-Oophorectomy ? SPECIMEN ADEQUACY ? Satisfactory for Evaluation - transformation zone component present GENERAL CATEGORIZATION ? Negative for Intraepithelial Lesion or Malignancy ? Document reviewed and electronically signed by: ? HEMAL Felton(ASCP) ? Report Date: ??10/23/2002 13:47 End of Report Specimen (Source) Anatomical Location Collection Method / Collectio n Time Received Time / Laterality Volume 10/16/2002 10/22/2002 Priscilla Sesay NP PATHOLOGY ORDERABLES Performing Organization Address City/State/ZIP Code Phon e Number [facility] [address] [place] [address] SERVICES [facility] [address] [place] [address] documented in this encounter Visit Diagnoses Not on filedocumented in this encounter
--- OUTSIDE RECORDS SUMMARY | 2022-07-16 00:52 | XMS_ITS | Encounter Summary ---
:1950 Author Organization [facility] Address [address] [place] [address] Care Team Providers Name Role Phone Priscilla Bhakta DOG CATCHER Primary Care Provider Encounter Details Date Type Department Care Team Description 09/26/2013 Results Only [facility]- PRISM Cem Reddy, DIRECTOR HUMAN SERVICES [address] [place], [place] [id number] (Wo rk) Social History Tobacco Use Types Packs/Day Years Used Date Smoking Tobacco: Never Assessed Sex Assigned at Date Recorded Not on file documented as of this encounter Plan of Treatment Not on filedocumented as of this encounter Procedures Procedure Name Priority Date/Time Associated Diagnosis Comme nts PAP TEST- RESULT Routine 09/26/2013 0:00 EST Resu lts for this ONLY procedure are i n the results section. documented in this encounter Results PAP TEST- RESULT ONLY (09/26/2013 0:00 EST) Component Value Ref Test Analysis Performed At [facility] Method Time Signature Pathology CYTOPATHOLOGY REPORT CHET[facility] Report: [facility] Reports generated via electronic interface contain original data; however they are lacking the format of the original report. Caution should be taken when reading/interpreting unformatte d reports. Name: ? DESTINI ARGUETA ? Accession #: ? [id number] ? : ? 1950 (Age: 63) ??F ?Collect Da te: ? 09/26/2013 ? Location: ? [facility] ? Receive Date: ? 09/28/2013 ? Provider: CEM REDDY DIRECTOR HUMAN SERVICES Copy to: ? Final Report SPECIMEN ADEQUACY ? Satisfactory for Evaluation - assessment of transformation zone component not appl icable ( e.g. atrophy, vaginal sample, hysterectomy) - scant squamous epithelial component GENERAL CATEGORIZATION ? Negative for Intraepithelial Lesion or Malignancy ?? 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 Cassidy Dodge, [facility](ASCP) ? Report ??Date: 10/03/2013 08:54 HPV with Pap Test ? Date Ordered: ? 10/03/2013 ? Status: ?? Linda d Out ?Date Complete: ? 10/05/2013 ? By: ??System Interface ? Date Reported: ? 10/05/2013 ? Interpretation RESULT: Negative for HPV. No E6 or E7 mRNA is detected from HPV types 16,18,31,33,35, 39,45,51,52,56,58,59,66, and 68 by vacuum cleaner mechanic mediated amplification. Comments Document reviewed and electronically signed by: ? System Interface ? Report date: 10/05/2013 By the signature above, the attending physician certifies th at he/she has personally conducted a gross and/or microscopic examin ation of the described specimens and rendered or confirmed the above diagnosis. End of Report Specimen (Source) Anatomical Location Collection Method / Collectio n Time Received Time / Laterality Volume 09/26/2013 09/28/2013 Cem Macknolan DIRECTOR HUMAN SERVICES PATHOLOGY ORDERABLES Performing Organization Address City/State/ZIP Code Phon e Number [facility] [address] [place] [address] SERVICES [facility] [address] [place] [address] documented in this encounter Visit Diagnoses Not on filedocumented in this encounter Care Teams Fine Sander Relationship Specialty Start Date End Date Priscilla Bhakta, HEBERT PCP - General 12/28/10 03/02/[address] [place] [phone] documented as of this encounter
--- OUTSIDE RECORDS SUMMARY | 2022-07-16 00:52 | XMS_ITS | Encounter Summary ---
:1950 Author Organization [facility] Address [address] [place] [address] Care Team Providers Name Role Phone Unavailable Primary Care Provider Unavailable Encounter Details Date Type Department Care Team Description 09/13/2006 Results Only [facility] - Joey Edmondson MD Maple conversion [address] [place] [address] [place] [address] [phone] Social History Tobacco Use Types Packs/Day Years Used Date Smoking Tobacco: Never Assessed Sex Assigned at Date Recorded Not on file documented as of this encounter Plan of Treatment Not on filedocumented as of this encounter Procedures Procedure Name Priority Date/Time Associated Diagnosis Comme [facility] SURGICAL PATHOLOGY Routine 09/13/2006 0:00 EST Re sults for this procedure are i n the results section. documented in this encounter Results SURGICAL PATHOLOGY (09/13/2006 0:00 EST) Component Value Ref Test Analysis Performed At [facility] Method Time Signature Pathology SURGICAL PATHOLOGY REPORT JUAN TELLES Report: Reports generated via electronic interface contain origina l data; MAXIMO DAVIS however they are lacking the format of the original report. Caution should be taken when reading/interpreting unformatte d reports. Name: ? DESTINI ARGUETA ? Accession #: ? [id number] ? : ? 1950 (Age: 56) ??F ? Collect Date: ? 09/13/2006 ? Location: ? [facility] ? Receive Date: ? 09/13/2006 ? Provider: JOEY EDMONDSON MD Copy to: KATIUSKA GOLDMAN MD ? Final Pathologic Diagnosis: ? Lung, right, apex, wedge resection: 1. ?Pulmonary parenchyma with: ? - Centriacinar emphys ematous changes and bullae formation. ??See comment. - Congestion. - Focal interstitial chronic inflammation, minimal. ? 2. ?? Focal organizing pleuritis. Comment: ? This case was reviewe d at intradepartmental consultation conference. ??(Dr. To)/[facility] Document reviewed and electronically signed by: Laila Mendoza MD Report ??Date: 09/22/2006 12:35 By the signature above, the attending physician certifies th at he/she has personally conducted a gross and/or microscopic examin ation of the described specimens and rendered or confirmed the above diagnosis. Specimen(s) Received: ? [place] right lung Clinical History: ? Pneumothorax Gross Description: ? Received in formalin labelled [place] and apex righ t lung is a triangular wedge excision of lung which measures 4.5 x 1.0 x 0.4 cm. ??There is a 4.5 cm in length staple line . ??The pleural surface is blue and smooth. ??There is a0.5 x 0.4 x 0.3 cm bulla pr esent which is at the one aspect of the staple line. The staple line is removed and this margin is i nked blue (adjacent to staple margin). ??Sectioning reveals a brown-re d parenchyma with no discrete lesions. The specimen is entirely sub mitted in two cassettes as (A1) and (A2) (minus the stapled margin). ??(Dr. Zavala-)/[facility] End of Report Specimen (Source) Anatomical Collection Method Collection Time Re ceived Time Location / / Volume Laterality 09/13/2006 09/13/2006 15:1 4 EST Joey Edmondson MD PATHOLOGY ORDERABLES Performing Organization Address City/State/ZIP Code Phon e Number [facility] [address] [place] [address] SERVICES [facility] [address] [place] [address] documented in this encounter Visit Diagnoses Not on filedocumented in this encounter
--- OUTSIDE RECORDS SUMMARY | 2022-07-16 00:52 | XMS_ITS | Encounter Summary ---
:1950 Author Organization [facility] [place] [address] [place] [address] Care Team Providers Name Role Phone Brittany Huynh MD Primary Care Provider Encounter Details Date Type Department Care Team Description 03/11/2015 Hospital Encounter [facility] at [facility] Chronic back pain [address] [place] [address] [place] [address] Social History Tobacco Use Types Packs/Day Years Used Date Former Smoker Quit: 08/11/20 06 Smokeless Tobacco: Never Used Sex Assigned at Date Recorded Not on file documented as of this encounter Medications at Time of Discharge Medication Sig Dispensed Refills Start Date End Date omeprazole (PRILOSEC) 40 mg Take 40 mg by mouth 0 01/14/2015 Capsule, Delayed daily. Release(E.C.) gabapentin (NEURONTIN) 300 0 5 mg Capsule pramipexole (MIRAPEX) 0.125 Take 1 tablet by 0 mg Tablet mouth daily. cyclobenzaprine (FLEXERIL) 5 0 015 mg Tablet documented as of this encounter Plan of Treatment Not on filedocumented as of this encounter Procedures Procedure Name Priority Date/Time Associated Diagnosis Comme nts XR LUMBAR SPINE 2 Routine 03/11/2015 11:00 AM Chronic back samaria n Results for this OR 3 VIEWS EDT procedure are i n the results section. documented in this encounter Results XR lumbar spine 2 [...] documented in this encounter Visit Diagnoses Diagnosis Chronic back pain Backache, unspecified documented in this encounter Care Teams Job Analysis Manager Relationship Specialty Start Date End Date Brittany Huynh MD PCP - General 02/12/15 01/15/[address] [place] [address] documented as of this encounter
--- OUTSIDE RECORDS SUMMARY | 2022-07-16 00:52 | XMS_ITS | Clinical Summary ---
:1950 Author Organization [facility] [place] [address] Care Team Providers Name Role Phone Leslie Levy APRN Primary Care Provider Allergies Active Allergy Reactions Severity Noted Date Comments Diclofenac Diarrhea 05/31/2016 Latex 02/21/2018 Propranolol 03/11/2016 Other reaction( s): propranolol Medications Medication Sig Dispensed Refills Start Date End Date Status omeprazole (PRILOSEC) Take 40 mg by 0 01/14/2015 Active 40 mg Capsule, Delayed mouth daily. Release(E.C.) gabapentin (NEURONTIN) 0 03/10/2015 Active 300 mg Capsule pramipexole (MIRAPEX) Take 1 tablet by 0 03/10/2015 Active 0.125 mg Tablet mouth daily. cyclobenzaprine 0 03/10/2015 Act radha (FLEXERIL) 5 mg Tablet loratadine (CLARITIN) Take 1 tablet by 60 tablet 2 05/31/2016 Active 10 mg Tablet mouth 2 times daily. camphor-menthol Apply topically as 120 mL 3 05/31/2016 Active (SARNA) Lotion needed for Itching (Apply as often as needed for itching). Ceramides 1,3,6-11 Use as moisturizer 340 g 2 05/31/2016 Active (CERAVE) Cream for itchy skin twice daily Active Problems Problem Noted Date Pruritus 05/31/2016 Pain in left hip 03/11/2015 Chronic back pain 03/11/2015 Immunizations Name Administration Dates Next Due Pneumococcal Conjugate (13 Valent) 02/21/2018 Social History Tobacco Use Types Packs/Day Years Used Date Former Smoker Quit: 08/11/20 06 Smokeless Tobacco: Never Used Sex Assigned at Date Recorded Not on file Last Filed Vital Signs Vital Sign Reading Time Taken Comments Blood Pressure 110/64 02/21/2018 1:03 PM EDT Pulse 76 02/21/2018 1:03 PM EDT Temperature 36.4 ??C (97.5 ??F) 02/21/2018 1:03 PM EDT Respiratory Rate 16 02/21/2018 1:03 PM EDT Oxygen Saturation 96% 02/21/2018 1:03 PM EDT Inhaled Oxygen Concentration - - Weight 76.7 kg (169 lb) 03/14/2015 8:36 AM EDT Height 162.6 cm (5' 4) 03/14/2015 8:36 AM EDT Body Mass Index 29.01 03/14/2015 8:36 AM EDT Plan of Treatment Health Maintenance Due Date Last Done Comments Covid-19 Vaccine (#1) 01/07/1951 Hepatitis C Screening 1968 Tdap adult 1969 Tetanus vaccine 1969 Breast Cancer Share Decision Needed 1990 Colonoscopy 1995 Breast Cancer screening 2000 Zoster vaccine (1 of 2) 2000 Advance Directive 2005 Bone Density Scan 2015 Pneumoccocal Vaccine: 65+ (2 - PPSV23 if available, 02/21/2019 02/21/2018 else PCV20) Influenza (Flu) vaccine (1 of 1 - Influenza standard 05/06/2022 series) Insurance Payer Benefit Plan / Subscriber ID Effective Dates Phone Addre ss Type Group MEDICARE MEDICARE PART A [id number] 2016-Present [phone] [id number] [place] [address] Care Teams Gas Turbine Mechanic Relationship Specialty Start Date End Date Leslie Levy, RUG DESIGNER PCP - General Family Medicine 01/16/[address] [place] [address]
--- OUTSIDE RECORDS SUMMARY | 2022-07-16 00:52 | XMS_ITS | Encounter Summary ---
:1950 Author Organization [facility] Address [address] [place] [address] Care Team Providers Name Role Phone Unavailable Primary Care Provider Unavailable Encounter Details Date Type Department Care Team Description 02/16/2000 Results Only [facility] - Juan Mckeon MD conversion [address] [place] [id number] Social History Tobacco Use Types Packs/Day Years Used Date Smoking Tobacco: Never Assessed Sex Assigned at Date Recorded Not on file documented as of this encounter Plan of Treatment Not on filedocumented as of this encounter Procedures Procedure Name Priority Date/Time Associated Diagnosis Comme [facility] SURGICAL PATHOLOGY Routine 02/16/2000 0:00 EDT Re sults for this procedure are i n the results section. documented in this encounter Results SURGICAL PATHOLOGY (02/16/2000 0:00 EDT) Component Value Ref Test Analysis Performed At [facility] Method Time Signature Pathology SURGICAL PATHOLOGY REPORT JUAN TELLES Report: Reports generated via electronic interface contain rosie l data; MAXIMO DAVIS however they are lacking the format of the original report. Caution should be taken when reading/interpreting unformatte d reports. Name: ? DESTINI ARGUETA ? Accession #: ? [id number] ? : ? 1950 (Age: 49) ??F ? Collect Date: ? 02/16/2000 ? Location: ? [facility] ? Receive Date: ? 02/16/2000 ? Provider: JUAN MAGANA MD Copy to: KATIUSKA HURST MD ? Final Pathologic Diagnosis: A. ?Endometrium, curettage: 1. ?Proliferative endometrium. B. ?Fallopian tube, left, salpingectomy: 1. ?Salpingitis, isthmica nodosa. C. ?Ovary, left, cyst, excision: 1. ?Serous cystadenoma. 2. ?Endometriosis. D. ?Ovary and fallopian tube, right, salpingo-o ophorectomy: 1. ?Endometriosis. 2. ?Salpingitis, isthmica nodosa. Document reviewed and electronically signed by: Dahiana Braxton [facility] Report ??Date: 02/18/2000 16:54 By the signature above, the attending physician certifies th at he/she has personally conducted a gross and/or microscopic examin ation of the described specimens and rendered or confirmed the above diagnosis. Specimen(s) Received: ? Endometrial curettings L fallopian tube L ovarian cyst and ovary R ovary Clinical History: ? Hx severe PID - ? endometriosis Gross Description: ? Received in formalin labelled [place] and endometrial curettings are 1.0 x 1.0 x 0.2 cm of multiple encarnacion-red irregular slightly mucoid soft tissue fragments. ??The specimen is entirely submitted as (A). Received in formalin labelled [place] a nd left fallopian tube is a encarnacion-pink 4.5 cm in length, 0.5 cm in diameter segment of fallopian tube with a large amount of attached encarnacion-pink glistening wrinkled serosa . ??On one aspect is a encarnacion-pink wrinkled 1.2 x 0.8 x 0.3 cm cyst-like structure w hich has a smooth inner lining. ??The cut surfaces of the fallopian tube are encarnacion-white with a central pinpoint lumen. ??No discrete no dules are identified. ??Hr Payroll Coordinator sections are submitted as follows. BLOCK KEYB1 ?Hr Payroll Coordinator fallopian tube B2 ?Hr Payroll Coordinator paratubal cyst-like structur e B3 ?Representat radha fallopian tube with paratubal cyst-like structure and additional serosa Received in formalin dionte d [place] and #3 left ovarian cyst and left ovary are multiple rubbery soft tissue fragmen ts which have a combined weight of 6.7 grams. ??There is a cyst-lik e wrinkled structure which measures 2.2 x 2.2 x 0.5 cm. ??The cyst contains six friable brown lithe-like surface ranging from 0.2 to 0.5 cm in greatest dimension. ??The cyst inner l ining is encarnacion-pink, smooth and glistening. ??Also received are multiple encarnacion-stanley rubbery irregular soft tissue fragments with cautery artifact. ??The s pecimens measure 3.0 x 2.5 x 1.0 cm in aggregate and are partially surfaced by a encarnacion wrinkled serosa. ??A minimal amount of residual ovary is grossly identified. ??Approximately 75% of the specimen is submitted as follows. BLOCK KEYC1 ?Cyst-like structure excluding ston es C2-C5 ?Rubbery fragmented soft tissues Received in formalin labelled [place] and right ovar y is the product of a salpingo-oophorectomy which has a combined weight of 14.2 grams. ??The previously incised encarnacion-yellow multilobulated ovary measures 2.8 x 2.0 x 1.5 cm. ??Upon sectioning, there is an ecce ntric encarnacion-stanley wrinkled 1.2 x 1.0 x 0.8 cm cyst-like structure. ??No excrescences are grossly identified. ??The previously interrupted fimbriated end fallopian tube measures 5 .2 cm in length and ranges from 0.5 cm at the proximal aspect to 1.8 cm at the distal aspect. ??T he fallopian tube exudes approximately 2.0 cc of clear yellow fluid. ??No excrescences are grossly identified. ??Hr Payroll Coordinator sections are submitted as follo ws. BLOCK SPRINGER ? D1 ?Hr Payroll Coordinator ovary D2 ?Hr Payroll Coordinator ovary and proximal fallopian tube D3 ?Hr Payroll Coordinator distal fallopian tube with a djacent ovary A4 ?Distal fallopian tube (Juan Negro-SOLA)/tmg End of Report Specimen (Source) Anatomical Collection Method Collection Time Re ceived Time Location / / Volume Laterality 02/16/2000 02/16/2000 15:4 9 EDT Juan Magana MD PATHOLOGY ORDERABLES Performing Organization Address City/State/ZIP Code Phon e Number [facility] [address] [place] [address] SERVICES [facility] [address] [place] [address] documented in this encounter Visit Diagnoses Not on filedocumented in this encounter
--- OUTSIDE RECORDS SUMMARY | 2022-07-16 00:52 | XMS_ITS | Encounter Summary ---
:1950 Author Organization [facility] [address] [place] [address] Care Team Providers Name Role Phone Brittany Huynh MD Primary Care Provider Encounter Details Date Type Department Care Team Description 03/11/2015 Hospital Encounter [place]Ray at [facility] [place] in left hip [address] [facility] [place] [address] Social History Tobacco Use Types Packs/Day [...] Priority Date/Time Associated Diagnosis Comme nts XR PELVIS AP AND Routine 03/11/2015 11:00 AM Pain in left hip Results for this HIP 2 VIEWS OF 1 EDT procedure a re in HIP the results section. documented in this encounter Results XR pelvis AP and hip 2 views [...] Pain in joint, pelvic region and thigh documented in this encounter Care Teams Cook Mayonnaise Relationship Specialty Start Date End Date Brittany Huynh MD PCP - General 02/12/15 01/15/[address] [place] [address] documented as of this encounter
--- OUTSIDE RECORDS SUMMARY | 2022-07-16 00:52 | XMS_ITS | Encounter Summary ---
:1950 Author Organization [facility] [place] [address] Care Team Providers Name Role Phone Brittany Huynh MD Primary Care Provider Encounter Details Date Type Department Care Team Description 11/30/2017 Hospital Encounter Radiology Library at [facility] [place] [address] [place] [address] [phone] (Wo rk) Social History Tobacco Use Types Packs/Day Years Used Date Former Smoker Quit: 08/11/20 06 Smokeless Tobacco: Never Used Sex Assigned at Date Recorded Not on file documented as of this encounter Medications at Time of Discharge Medication Sig Dispensed Refills Start Date End Date loratadine (CLARITIN) 10 Take 1 tablet by 60 tablet 2 05/31 mg Tablet mouth 2 times daily. camphor-menthol (SARNA) Apply topically as 120 mL 3 05/07 Lotion needed for Itching (Apply as often as needed for itching). Ceramides 1,3,6-11 Use as moisturizer 340 g 2 6 (CERAVE) Cream for itchy skin twice daily omeprazole (PRILOSEC) 40 Take 40 mg by mouth 0 mg Capsule, Delayed daily. Release(E.C.) gabapentin (NEURONTIN) 300 0 5 mg Capsule pramipexole (MIRAPEX) Take 1 tablet by 0 03/10/20 15 0.125 mg Tablet mouth daily. cyclobenzaprine (FLEXERIL) 0 5 5 mg Tablet documented as of this encounter Plan of Treatment Not on filedocumented as of this encounter Procedures Procedure Name Priority Date/Time Associated Diagnosis Comme nts FILM LIBRARY Routine 11/30/2017 12:00 AM Results for this STORAGE ONLY DX EDT procedure ar e in CHEST the results section. documented in this encounter Results Film Library- Storage Only DX Chest (11/30/2017 12:00 AM EDT) Specimen (Source) Anatomical Location Collection Method / Collectio n Time Received Time / Laterality Volume Narrative [facility] - 01/12/2018 8:54 PM EDT This exam is for storage only and is aut o-finalizing. Bhargav Curiel MD IMG FILM LIBRARY ORDERABLES Performing Organization Address City/State/ZIP Code Phon e Number [place], [place] documented in this encounter Visit Diagnoses Not on filedocumented in this encounter Care Teams Class A Regional Drivers Relationship Specialty Start Date End Date Brittany Huynh MD PCP - General 02/12/15 01/15/[address] [place] [address] documented as of this encounter
--- OUTSIDE RECORDS SUMMARY | 2022-07-16 00:52 | XMS_ITS | Encounter Summary ---
:1950 Author Organization [facility] Address [address] [place] [address] Care Team Providers Name Role Phone Leslie Levy Zelda CABLE ARMORER OPERATOR Primary Care Provider Encounter Details Date Type Department Care Team Description 03/06/2019 Results Only [facility]- Betzaida Albright, [address] [place] [address] [address] [place], [place] [id number] (Wo rk) Social History Tobacco Use Types Packs/Day Years Used Date Smoking Tobacco: Never Assessed Sex Assigned at Date Recorded Not on file documented as of this encounter Plan of Treatment Not on filedocumented as of this encounter Procedures Procedure Name Priority Date/Time Associated Diagnosis Comme [facility] SURGICAL PATHOLOGY Routine 03/06/2019 16:10 Resul ts for this EDT procedure are i n the results section. documented in this encounter Results SURGICAL PATHOLOGY (03/06/2019 16:10 EDT) Component Value Ref Test Analysis Performed At [facility] Method Time Signature Pathology SURGICAL PATHOLOGY REPORT [facility] MEDICAL Report: Reports generated via electronic interface contain origina data; CENTER however they are lacking the format of the original report. LABORATORY Caution should be taken when reading/interpreting unformat krystal reports. SERVICES Name: ? DESTINI ARGUETA ? Accession #: ? [id number] ? : ? 1950 (Age: [age]) ??F ? Collect Date: ? 03/06/2019 ? Location: ? [facility] ? Receive Date: ? 03/06/2019 ? Provider: BETZAIDA TRIVEDI MD Copy to: KYAW ABBASI SURVEY STATISTICIAN ? Final Pathologic Diagnosis: A. STOMACH, ANTRUM, BIOPSY: - Gastric antral mucosa with mild reactive (chemical) gastro bob. - Gastric body mucosa with no specific pathologic features. B. STOMACH, POLYP, BIOPSY: - Fundic gland polyp. C. GASTROESOPHAGEAL JUNCTION, BIOPSY: - Squamocolumnar mucosa with erosive reflux esophagitis. - Negative for intestinal metaplasia; Negative for dysplasia . D. GASTROESOPHAGEAL JUNCTION, BIOPSY: - Squamocolumnar mucosa with reflux esophagitis. - Negative for intestinal metaplasia; Negative for dysplasia . Document reviewed and electronically signed by: AYDEN YI MD Report ??Date: 03/09/2019 10:43 By the signature above, the attending physician certifies th at he/she has personally conducted a gross and/or microscopic examin ation of the described specimens and rendered or confirmed the above diagnosis. Specimen(s) Received: A. ??Antrum biopsies B. ??Gastric polyp C. ??GE junction D. ??GE junction Clinical History: Gastritis, esophagitis, hiatal hernia Gross Description: A. ?Received in formalin labelled with proper patie nt identification (initials O, I) and antral biopsy are two pink-encarnacion tissues (0.2 x 0.2 x 0.2 cm and 0.4 x 0.3 x 0.2 cm). Entirely submitted in A1. B. ?Received in formalin labelled with proper patie nt identification (initials O, I) and gastric polyp are two pink-encarnacion tissues (0.2 x 0.2 x 0.2 cm and 0.3 x 0.2 x 0.2 cm). Entirely submitted in B1. C. ?Received in formalin labelled with proper patie nt identification (initials O, I) and GE junction is a single pi nk-encarnacion tissue fragment (0.4 x 0.3 x 0.2 cm). Submitted intact in C1. D. ?Received in formalin labelled with proper patie nt identification (initials O, I) and GE junction is a single pi nk-encarnacion tissue fragment (0.2 x 0.2 x 0.2 cm). Submitted intact in D1. SOLO Soni (ASCP) 03/06/2019 4:28 PM End of Report Specimen Anatomical Collection Method Collection Time Receive d Time (Source) Location / / Volume Laterality 03/06/2019 16:10 03/06/2019 EDT 16:10 EDT Betzaida Trivedi MD PATHOLOGY ORDERABLES Performing Organization Address City/State/ZIP Code Phon e Number [facility] [address] [place] [address] SERVICES documented in this encounter Visit Diagnoses Not on filedocumented in this encounter Care Teams Laundry Housekeeping Aide Relationship Specialty Start Date End Date Leslie Levy FNP PCP - General 03/03/16 03/13/[address] [facility] [place] [address] documented as of this encounter
--- OUTSIDE RECORDS SUMMARY | 2022-07-16 00:52 | XMS_ITS | Encounter Summary ---
:1950 Author Organization [facility] Address [address] [place] [address] Care Team Providers Name Role Phone Unavailable Primary Care Provider Unavailable Encounter Details Date Type Department Care Team Description 09/19/2008 Before [facility] - Priscilla Bhakta, Converted Visit Maple conversion UTILIZATION COORDINATOR (Maple) [address] [facility] [address] [place] [address] [place] [phone] (Wo rk) Social History Tobacco Use Types Packs/Day Years Used Date Smoking Tobacco: Never Assessed Sex Assigned at Date Recorded Not on file documented as of this encounter Plan of Treatment Not on filedocumented as of this encounter Procedures Procedure Name Priority Date/Time Associated Diagnosis Comme [facility] CYTOPATHOLOGY Routine 09/19/2008 0:00 EST Results for this procedure are i n the results section . documented in this encounter Results CYTOPATHOLOGY (09/19/2008 0:00 EST) Component Value Ref Test Analysis Performed At [facility] Pathology CYTOPATHOLOGY REPORT ? [facility] Report: ? [facility] Reports generated via electr onic interface contain original data; ? however they are lacking the format of the original report. ? Caution should be taken when reading/interpreting unformatted reports. ? Name: ? TAPANKEVIN DESTINI A ? Accession #: ? [id number] ? : ? 1950 (Age: 58) ??F ?Collect Date: ? 09/19/2008 ? Location: ? [facility] ? Receive Date: ? 09/23/2008 ? Provider: ?PRISCILLA L R MODESTA UTILIZATION COORDINATOR ? Copy to: ? Specimen/Source: ? Pap Test, Cervix, ThinPrep Imaging System with manual ?? evaluation ? Last Menstrual Period: ? 10 years ? Treatment History: ? Miscellaneous treatment: BSO -cysts ? Other: ? HPVA - HPV testing requested if ASC-US on the current ThinPrep Pap test. ? SPECIMEN ADEQUACY ? Satisfactory for Eval uation ? - assessment of transformati on zone component not applicable ( e.g. atrophy, ? vaginal sample, hysterectomy ) ? GENERAL CATEGORIZATION ? Negative for Intraepi thelial Lesion or Malignancy ? Document reviewed and electr onically signed by: ? Lynan Jeffery, CT(ASCP) ? Report Date: ??01/21/ 2009 10:59 ? End of Report ? Specimen (Source) Anatomical Location Collection Method / Collectio n Time Received Time / Laterality Volume 09/19/2008 09/23/2008 Priscilla Bhakta UTILIZATION COORDINATOR PATHOLOGY ORDERABLES Performing Organization Address City/State/ZIP Code Phon e Number [facility] [address] [place] [address] SERVICES [facility] [address] [place] [address] documented in this encounter Visit Diagnoses Not on filedocumented in this encounter
--- OUTSIDE RECORDS SUMMARY | 2022-07-16 00:52 | XMS_ITS | Encounter Summary ---
:1950 Author Organization [facility] [address] Care Team Providers Name Role Phone Brittany Huynh MD Primary Care Provider Reason for Visit Reason Comments Skin Check Encounter Details Date Type Department Care Team Description 05/31/2016 Office Visit Dermatology at [facility] Stephen Maynard MD Pruritus [address] [facility] [address] [place] [address] DERMATOLOGY [phone] [place], [place] [address] (Wo rk) Social History Tobacco Use Types Packs/Day Years Used Date Former Smoker Quit: 08/11/20 06 Smokeless Tobacco: Never Used Sex Assigned at Date Recorded Not on file documented as of this encounter Progress Notes Stephen Maynard MD - 05/31/2016 2:15 PM EDT Problem is generalized pruritus. Destini is a 65-year-old woman who has had generalized pruritus now all summer long. Initially this has been worked up at [facility], and apparently lab screening was negative. The patient has had no rash, but it itches in the arms and legs, it can be daytime, nighttime. It can awaken her from a sleep. There has been no change in her medications. She states that her past medical history is such that she had hip surgery in March of 2015 and a revision in August of 2015 and then suffered a DVT 2 weeks later. That leg is now weakened and she is no longer able to work at [employer]. She spends time at home, where she has different projects around the house. She states that she has a border, who is her ex. He has lived about 10-11 years with her. She states that she had kicked him out of the house when their last child was 6 months old, many, many years ago. She states that it is very stressful for her living with him, but he has had significant medical problems and surgeries and he has no place else to go. No other family member is willing to take him, according to her. She has actually taken the step of seeking the advice of a corporate communications manager, to finding a way to get him out of her house and was told to approach family court. The patient is seen here in consultation today for Leslie Coronado NP. Physical examination reveals a pleasant 65-year-old woman who has today, diffusely xerotic dry skin. She has no excoriations on the arms, legs, torso. She has no evidence of any scabetic lesions. She does not appear jaundiced. Review of her labs show them to be with normal/low normal CBC, normal CMP, normal BUN and creatinine, normal bilirubin and normal liver function tests. ASSESSMENT/PLAN: 1. Diffuse pruritus in a patient without any dermatologic findings and normal lab workup, (including normal TSH). a. Suspect that in fact, the patient's stress in dealing with her ex, having him as a border in her house, is playing a role with this, even though he has apparently has been with her now as a border for the last 10-11 years. b. Advised her to seek the help of her primary care office, perhaps a clinical social work therapist can help her pursue another living arrangement for her ex, to whom she now, in her mind, has no legal obligation. I am not sure of that, that is her statement, but this may be a significant part of the cause of her pruritus. c. Also recommend that she begin Claritin 10 mg 1 p.o. b.i.d., CeraVe cream b.i.d. and Sarna lotion applying p.r.n. These were called in as prescriptions, so hopefully they will be covered by her Medicaid card to her [facility]. 2. Return to clinic here would be p.r.n. CC: HEBERT Blake Dr. documented in this encounter Plan of Treatment Not on filedocumented as of this encounter Visit Diagnoses Diagnosis Pruritus Unspecified pruritic disorder documented in this encounter Care Teams Acquisition Lead Relationship Specialty Start Date End Date Brittany Huynh MD PCP - General 02/12/15 01/15/[address] [place] [address] documented as of this encounter
--- OUTSIDE RECORDS SUMMARY | 2022-07-16 00:52 | XMS_ITS | Encounter Summary ---
:1950 Author Organization [facility] [place] [address] Care Team Providers Name Role Phone Leslie Levy APRN Primary Care Provider Encounter Details Date Type Department Care Team Description 03/03/2018 Telephone Pulmonology at [facility] [place] [phone] Social History Tobacco Use Types Packs/Day Years Used Date Former Smoker Quit: 08/11/20 06 Smokeless Tobacco: Never Used Sex Assigned at Date Recorded Not on file documented as of this encounter Miscellaneous Notes Telephone Encounter - Mary Jane Hartley LPN - 03/03/2018 12:59 PM EDT Over night oximetry order faxed to [facility] documented in this encounter Plan of Treatment Not on filedocumented as of this encounter Visit Diagnoses Not on filedocumented in this encounter Care Teams Flatwork Folder Relationship Specialty Start Date End Date Leslie Levy APRN PCP - General Family Medicine 01/16/[address] [place], [place] [address] documented as of this encounter
--- OUTSIDE RECORDS SUMMARY | 2022-07-16 00:52 | XMS_ITS | Encounter Summary ---
:1950 Author Organization [place] [address] Care Team Providers Name Role Phone Brittany Huynh MD Primary Care Provider Reason for Visit Reason Comments Low Back Pain With Radicular Pain Encounter Details Date Type Department Care Team Description 03/14/2015 Office Visit Spine Center at [facility] Juan Moscoso MD Chronic back pain [facility] [place] [place] [address] SPINE CENTER [phone] [place] [id number] (Wo rk) Social History Tobacco Use Types Packs/Day Years Used Date Former Smoker Quit: 08/11/20 06 Smokeless Tobacco: Never Used Sex Assigned at Date Recorded Not on file documented as of this encounter Last Filed Vital Signs Vital Sign Reading Time Taken Comments Blood Pressure - - Pulse - - Temperature - - Respiratory Rate - - Oxygen Saturation - - Inhaled Oxygen Concentration - - Weight 76.7 kg (169 lb) 03/14/2015 8:36 AM EDT Height 162.6 cm (5' 4) 03/14/2015 8:36 AM EDT Body Mass Index 29.01 03/14/2015 8:36 AM EDT documented in this encounter Progress Notes Juan Moscoso MD - 03/14/2015 9:33 AM EDT Ms. Dubois is a 64-year-old woman seen today in the spine center consultation from Alina Bella and Brittany Huynh. She is seen and evaluated for long history of chronic back pain and at least a 10-year history of pain in the left hip, left lateral thigh, leg, and medial foot. She reports having multiple injections with only transient and slight improvement. Nothing is really made her better, any walking or activities makes her worse. Review of systems is negative for GI, , or constitutional symptoms. She has a history of restless legs syndrome and GERD. She reports no medication allergies. Height is 5 feet 4 inches, weight 170 pounds, body mass index 29.1. This is a very quite depressed-appearing woman. Her gait is slow. She is really not able to go up on her toes or heels, I am uncertain as to why. She has a level pelvis, has straight spine. She has pain in the midline low back and left sciatic notch and pain along the left trochanteric region and lateral thigh, all of which are normal in appearance. She has normal distant motor strength by manual motor testing. She has diminished sensation in the left lateral leg and medial foot. Reflexes are 2 at the knees and ankles. Straight leg raise test is negative. She has no edema, atrophy, fasciculations or spasticity. Lumbar MRI dated 02/03/2015 from [facility] suggests lateral recess stenosis L4-L5, seen on axial T2 image 14, series 6. This is a subtle finding. I am not certain that it would explain her chronic left leg pain, but it is certainly within the distribution of her symptoms, which is the L5 nerve root. She also has compression fractures, particularly at T12. I am unable to determine the specific etiology of her chronic back pain as well. Reviewed all this with Ms. Dubois. I did suggest there is a chance that a lumbar decompression on the left at L4-L5 might provide her some improvement in her left-sided symptoms given the L5 distribution, in fact I considered doing a bilateral procedure as her stenosis in the lateral recess is bilateral. She is referred to Shared Decision Making. She has an appointment in orthopedics to have her hip evaluated in mid April. If it is felt that it is not related to her hip and more likely related to her spine and if she wishes to pursue surgical intervention, I am happy to see her back to review these issues, otherwise she can return to see Alina Bella for further medical management. documented in this encounter Plan of Treatment Not on filedocumented as of this encounter Visit Diagnoses Diagnosis Chronic back pain Backache, unspecified documented in this encounter Care Teams Submersible Pilot Relationship Specialty Start Date End Date Brittany Huynh MD PCP - General 02/12/15 01/15/[address] [place] [address] documented as of this encounter
--- OUTSIDE RECORDS SUMMARY | 2022-07-16 00:52 | XMS_ITS | Encounter Summary ---
:1950 Author Organization [facility] Address [address] [place] [address] Care Team Providers Name Role Phone Unavailable Primary Care Provider Unavailable Encounter Details Date Type Department Care Team Description 11/12/2003 Results Only [facility] - Susu Cain son, Priscilla Bell, ATOMIC PHYSICS TEACHER conversion [address] [place] [phone] (Wo rk) Social History Tobacco Use Types Packs/Day Years Used Date Smoking Tobacco: Never Assessed Sex Assigned at Date Recorded Not on file documented as of this encounter Plan of Treatment Not on filedocumented as of this encounter Procedures Procedure Name Priority Date/Time Associated Comments Diagnosis HPV DETECTION, HIGH Routine 11/12/2003 8:42 Resul ts for this RISK TYPES EST procedure are i n the results section. CYTOPATHOLOGY Routine 11/12/2003 0:00 Results for this EST procedure are i n the results section. documented in this encounter Results HUMAN PAPILLOMA VIRUS DNA TEST (11/12/2003 8:42 EST) [facility] Method Time Signature Specimen Cervix, BASILIO Description ThinPrep vial [facility] Result Positive for one or more of HPV types 16,18,31,33,35,39,45,51,52,56,58,59, or 68. These BASILIO high/intermediate risk HPV t ypes are associated with dysplasia and some cervical cancers. [facility] Report Status Final [facility] [id number] [facility] Specimen Anatomical Collection Method Collection Time Receive d Time (Source) Location / / Volume Laterality 11/12/2003 8:42 11/22/2003 8 :42 EST EST Priscilla Sesay NP MICROBIOLOGY - GENERAL ORDER TITO Performing Organization Address City/State/ZIP Code Phon e Number [facility] [address] [place] [address] SERVICES [facility] [address] [place] [address] CYTOPATHOLOGY (11/12/2003 0:00 EST) Component Value Ref Test Analysis Performed At [facility] Range Method Time Signature Pathology CYTOPATHOLOGY REPORT [facility] Report: [facility] Reports generated via electronic interface contain original data; however they are lacking the format of the original report. Caution should be taken when reading/interpreting unformatte d reports. Name: ? DESTINI ARGUETA ? Accession #: ? [id number] : ? 1950 (Age: 53) ??F ?Collect Date: ? 11/12/2003 Location: ? [facility] ? Receive Date: ? 11/14/2003 Provider: ?PRISCILLA SESAY ATOMIC PHYSICS TEACHER Copy to: ? Specimen/Source: ?ThinPrep Pap Test, Cervix/Endoce rvix Last Menstrual Period: ? 2000 Treatment History: ? Miscellaneous treatment: Bilat Oophorectomy 2000 Other: ? HPVA - HPV testing requested if ASC-US on the current ThinPr ep Pap test. ? SPECIMEN ADEQUACY ? Satisfactory for Evaluation - transformation zone component present GENERAL CATEGORIZATION ? Epithelial Cell Abnormality INTERPRETATION ? Squamous Cell Abnormality - Atypical squamous cells, undetermined significance. EDUCATIONAL NOTES/RECOMMENDATIONS ? [facility] recommends afsaneh strong the 2001 Consensus Guidelines for the Management of Women with Cervical Cytological Abnormalities (PENNY,2002 ;287:2120-9). Management algorithms have b een distributed by [facility] and are available online at www.ASCCP.org. ? Document reviewed and electronically signed by: ? LARRY GILL MD ? Report Date: ??11/21/2003 12:47 End of Report Specimen (Source) Anatomical Location Collection Method / Collectio n Time Received Time / Laterality Volume 11/12/2003 11/14/2003 Priscilla Sesay NP PATHOLOGY ORDERABLES Performing Organization Address City/State/ZIP Code Phon e Number [facility] [address] [place] [address] SERVICES [facility] [address] [place] [address] documented in this encounter Visit Diagnoses Not on filedocumented in this encounter
--- OUTSIDE RECORDS SUMMARY | 2022-07-16 00:52 | XMS_ITS | Encounter Summary ---
:1950 Author Organization [facility] Address [address] [place] [address] Care Team Providers Name Role Phone Mila Masters DISTRIBUTION OPERATIONS SUPERVISOR Primary Care Provider Encounter Details Date Type Department Care Team Description 11/10/2020 Lab Requisition [facility] Outr Resulting Lab, Pathology & Laboratory Provider [facility] [address] [place] [address] Social History Tobacco Use Types Packs/Day Years Used Date Smoking Tobacco: Never Assessed Sex Assigned at Date Recorded Not on file documented as of this encounter Plan of Treatment Not on filedocumented as of this encounter Procedures Procedure Name Priority Date/Time Associated Comments Diagnosis HOLD SST Today 11/10/2020 10:22 Results for this EST procedure are i n the results section. LYME AB Today 11/10/2020 10:22 Results for this EST procedure are i n the results section. RHEUMATOID FACTOR Today 11/10/2020 10:22 Result s for this EST procedure are i n the results section. ANTI NUCLEAR AB Today 11/10/2020 10:22 Results for this (OVIDIO), IFA EST procedure are i n the results section. documented in this encounter Results HOLD SST (11/10/2020 10:22 EST) P athologist Signature Hold Hold 11/10/2020 [facility] 17:01 EST [facility]ENTER LAB[facility]ORY SERVICES Specimen Anatomical Collection Method Collection Time Receive d Time (Source) Location / / Volume Laterality Blood VENOUS BLOOD / 11/10/2020 10:22 Unknown EST 15:48 EST Provider Outr Resulting Lab LAB INFO SERVICE AND SUPPO RT & PHONE RESULT Performing Organization Address City/[facility]/ZIP Code Phon e Number [facility] [address] [place] [address] SERVICES LYME AB (11/10/2020 10:22 EST) athologist Signature Lyme Ab Negative Negative 11/11/2020 [facility] 11:04 [facility] Comment: New 3rd generation assay in use 02/13/2020 Specimen Anatomical Collection Method Collection Time Receive d Time (Source) Location / / Volume Laterality Blood VENOUS BLOOD / 11/10/2020 10:22 1 Unknown EST 15:48 EST Provider Outr Resulting Lab IMMUNOLOGY AND SEROLOGY OR DERABLES Performing Organization Address [facility]/ZIP [facility] Phon e Number [facility] [address] [place] [address] SERVICES RHEUMATOID FACTOR (11/10/2020 10:22 EST) athologist [facility] Rheumatoid <8.6 <12.0 11/10/2020 [facility] Factor IU/mL 16:21 [facility] Specimen Anatomical Collection Method Collection Time Receive d Time (Source) Location / / Volume Laterality Blood VENOUS BLOOD / 11/10/2020 10:22 1 Unknown EST 15:48 EST Provider Outr Resulting Lab CHEMISTRY & BLOOD GAS ORDE RABLES Performing Organization Address City/[facility] Phon e Number [facility] [address] [place] [address] SERVICES (ABNORMAL) ANTI NUCLEAR AB (OVIDIO), IFA (11/10/2020 10:22 EST) [facility] Method Time Signature OVIDIO Positive Negative 11/11/2020 [facility] Interpretation (A) 15:12 [facility] Comment: For titers greater than or equal to 1:16 0 (except the centromere and nucleolar patterns) it is recommended that specific follow-up autoantibody testing ??(such as for dsDNA and Extractable Nuclear Antig ens) be performed on all diffuse and/or speckled patterns NOTE: For add-on testing dsDNA is stable for 7 days refrigerated while Extractable Nuclear Antigens are only stable for 48 hours refrigerated. OVIDIO Titer and 1:160 Speckled 11/11/2020 15:12 EST [facility] Pattern 1 LABORATORY SERVICES Specimen Anatomical Collection Method Collection Time Receive d Time (Source) Location / / Volume Laterality Blood VENOUS BLOOD / 11/10/2020 10:22 1 Unknown EST 15:48 EST Narrative [facility] SERVICES - 11/11/2020 15:12 EST Results were obtained with the RethinkDBVA NOV A Lite HEp-2 OVIDIO Kit by indirect immunofluorescence. Provider Outr Resulting Lab IMMUNOLOGY AND SEROLOGY OR DERABLES Performing Organization Address City/State/ZIP Code Phon e Number [facility] [address] [place] [address] SERVICES documented in this encounter Visit Diagnoses Not on filedocumented in this encounter Care Teams Gas Pipe Layer Relationship Specialty Start Date End Date Mila Masters, DISTRIBUTION OPERATIONS SUPERVISOR PCP - General 03/14/19 documented as of this encounter
--- OUTSIDE RECORDS SUMMARY | 2022-07-16 00:52 | XMS_ITS | Encounter Summary ---
:1950 Author Organization [facility] [place] [address] Care Team Providers Name Role Phone Leslie Levy APRN Primary Care Provider Reason for Referral Rehabilitation (Routine) - Closed Specialty Diagnoses / Referred By Contact Referred To Contact Procedures Pulmonary Rehabilitation Diagnoses COPD, very severe Ariana Harmon, Pulmonary Rehab, [facility] Fax: [place] [address] Referral ID Status Reason Start Date Expiration Date Visits V isits Requested Authorized [id number] Closed Evaluate and 02/23/2018 02/23/2019 36 36 Treat Encounter Details Date Type Department Care Team Description 02/22/2018 Orders Only [place] [facility] [place]ana Harmon MD [place], [place] [address] P[facility]ARY [facility]IC[facility] [place], [place] [address] (Wo rk) Social History Tobacco Use Types Packs/Day Years Used Date Former Smoker Quit: 08/11/20 06 Smokeless Tobacco: Never Used Sex Assigned at Date Recorded Not on file documented as of this encounter Plan of Treatment Scheduled Referrals Name Type Priority Associated Diagnoses Order S chedule Referral to Outpatient Referral Routine COPD, very severe Ord ered: Pulmonary Rehab 02/23/2018 documented as of this encounter Visit Diagnoses Diagnosis COPD, very severe Chronic airway obstruction, not elsewher e classified documented in this encounter Care Teams Assembler Truck Trailer Relationship Specialty Start Date End Date Leslie Levy, RADIOISOTOPE TECHNICIAN PCP - General Family Medicine 01/16/[address] [place] [address] documented as of this encounter
--- OUTSIDE RECORDS SUMMARY | 2022-07-16 00:52 | XMS_ITS | Encounter Summary ---
:1950 Author Organization [facility] [place] [address] Care Team Providers Name Role Phone Brittany Huynh MD Primary Care Provider Encounter Details Date Type Department Care Team Description 12/30/2017 [facility] [place] [address] [place] [address] [phone] (Wo rk) Social History Tobacco Use Types [...] Associated Diagnosis Comme nts FILM LIBRARY Routine 12/30/2017 12:00 AM Results for this STORAGE ONLY DX EDT procedure ar e in CHEST the results section. documented in this encounter Results Film Library- Storage Only DX Chest (12/30/2017 12:00 AM EDT) Specimen (Source) Anatomical Location Collection Method / Collectio n Time Received Time / Laterality Volume Narrative [facility] - 01/12/2018 8:55 PM EDT This exam is for storage only and is aut o-finalizing. Bhargav Curiel MD IMG FILM LIBRARY ORDERABLES Performing Organization Address City/State/ZIP Code Phon e Number [place], [place] documented in this encounter Visit Diagnoses Not on filedocumented in this encounter Care Teams Hybrid Derivatives Trader Relationship Specialty Start Date End Date Brittany Huynh MD PCP - General 02/12/15 01/15/18 [address] [place] [address] documented as of this encounter
--- OUTSIDE RECORDS SUMMARY | 2022-07-16 00:52 | XMS_ITS | Encounter Summary ---
:1950 [place] [address] Care Team Providers Name Role Phone Brittany Huynh MD Primary Care Provider Encounter Details Date Type Department Care Team Description 10/29/2014 Orders Only Functional [facility] Jc Bella APRN Program at [facility] [address] [place] [address] [place] [address] [phone] (Wo rk) Social History Tobacco Use Types Packs/Day Years Used Date Never Assessed Sex Assigned at Date Recorded Not on file documented as of this encounter Plan of Treatment Not on filedocumented as of this encounter Procedures Procedure Name Priority Date/Time Associated Diagnosis Comme nts FILM LIBRARY Routine 10/29/2014 2:58 PM Results f or this STORAGE ONLY DX EST procedure ar e in SPINE the results section. documented in this encounter Results Film Library- Storage only DX Spine (10/29/2014 2:58 PM EST) Anatomical Region Laterality Modality Other Specimen (Source) Anatomical Collection Method Collection Time Re ceived Time Location / / Volume Laterality 10/29/2014 2:58 PM EST Narrative 03/06/2015 2:59 PM EDT This is a Non-reportable exam Procedure Note BRIANA, UNSIGNED REPORT - 03/06/2015Formatt ing of this note might be different from the original. This is a Non-reportable exam Alina Bella APRN IMG FILM LIBRARY ORDERABLES documented in this encounter Visit Diagnoses Not on filedocumented in this encounter Care Teams Apparel Pattern Maker Relationship Specialty Start Date End Date Brittany Huynh MD PCP - General 02/12/15 01/15/[address] [place] [address] documented as of this encounter
--- OUTSIDE RECORDS SUMMARY | 2022-07-16 00:52 | XMS_ITS | Encounter Summary ---
:1950 Author Organization [facility] [place] [address] Care Team Providers Name Role Phone Leslie Levy APRN Primary Care Provider Reason for Visit Reason Comments COPD new patient Consultation (Routine) - Closed Specialty Diagnoses / Procedures Referred By Contact Refer red To Contact Pulmonology Diagnoses COPD, frequent exacerbations COPD, frequent exacerbations Leslie Levy APRN [facility] [address] [place] [id number] Referral ID Status Reason Start Date Expiration Date Visits V isits Requested Authorized [id number] Closed Consult, 01/18/2018 01/18/2019 1 1 [facility] Encounter Details Date Type Department Care Team Description 02/21/2018 Office Visit Pulmonology at [facility] Ariana Harmon, COPD, very severe; [facility] MD BIRCH (dyspnea on exertion); [facility] [place] [address] PULMONARY MEDICI [place], [place] [address] Social History Tobacco Use Types Packs/Day Years [...] EDT Inhaled Oxygen Concentration - - Weight - - Height - - Body Mass Index - - documented in this encounter Patient Instructions Patient InstructionsMaAriana bass MD - 02/21/2018 1:00 PM EDT 1) [facility] will contact you about night oxygen test 2) I will refer you to [facility] 3) I will have you back in the clinic in 4-8 weeks. On the day of the visit, you will have a breathing test and CT before seeing me. 4) you will have a blood draw today and we will discuss the result on the next visit. 5) in terms of inhaler, you will use albuterol ( ProAir ) 2 puffs in the morning, this will be followed by symbicort and incruse. documented in this encounter Progress Notes Ariana Harmon MD - 02/21/2018 1:00 PM EDT Images from the original note were not included. Pulmonary Clinic Consult Note Reason for Consult: I was asked by Leslie Levy APRN to evaluate this patient for COPD management I have personally interviewed and examined the patient, reviewed history, radiographic studies( if any) and laboratory data(if any). HPI: This is a 67 y.o. female, a former smoker with 0.75 x 25 pack-year cigarette smoking history quit [id number], here for evaluation and management of COPD. She was diagnosed to for COPD approximately 5 years ago, but did not start on any inhalers til last year. She has been on a combination of symbicort ( without spacer), incruse ellipta once daily and albuterol, which she uses 3 / week on average. She is not on home oxygen. Her respiratory symptoms are exertional dyspnea. Not much cough nor sputum production. She has been having frequent COPD exacerbation over the last 6 months. Most recently, she had the right lower lobe pneumonia in December 2017. The dx was confirmed by chest x-ray. She also had a chest x-ray in both October 2017 and November 2017 without infiltrate. She also has h/o holes in the right lung, was hospitalized at [facility], had two tubes placed in the chest in August of 2006. Though it was not mentioned in the report, to my eyes, she has kyphosis. Her PFT showed very severe flow obstruction with significant bronchodilator response with reduced DLco. FVC is also reduced. SpO2 was 93 and SpO2 92 after 300 ft ambulation. She has no h/o asthma or significant environmental allergies. 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 Does gardening. No problem with daily in house activities. Problem List: Patient Active Problem List Diagnosis Date Noted ??? Pruritus 05/31/2016 ??? Pain in left hip 03/11/2015 ??? Chronic back pain 03/11/2015 PMHx: No past medical history on file. FHx: No family history on file. Social Hx: Social History Substance Use Topics ??? Smoking status: Former Smoker Quit date: 08/11/2006 ??? Smokeless tobacco: Never Used ??? 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 Does gardening. No problem with daily in house activities. Rabbits, chickens ( outdoor), dogs and cockatiel ( indoor, >10 years ). Allergy: Allergies Allergen Reactions ??? Diclofenac Diarrhea Medications: Outpatient Prescriptions Marked as Taking for the 02/21/18 encounter (Office Visit) with Ariana Harmon MD Medication Sig Dispense Refill ??? loratadine (CLARITIN) 10 mg Tablet Take 1 tablet by mouth 2 times daily. 60 tablet 2 ??? camphor-menthol (SARNA) Lotion Apply topically as needed for Itching (Apply as often as needed for itching). 120 mL 3 ??? Ceramides 1,3,6-11 (CERAVE) Cream Use as moisturizer for itchy skin twice daily 340 g 2 ??? omeprazole (PRILOSEC) 40 mg Capsule, Delayed Release(E.C.) Take 40 mg by mouth daily. 0 ??? gabapentin (NEURONTIN) 300 mg Capsule 0 ??? pramipexole (MIRAPEX) 0.125 mg Tablet Take 1 tablet by mouth daily. 0 ??? cyclobenzaprine (FLEXERIL) 5 mg Tablet 0 ROS: x: positive. [ ] Shortness of breath [ ] Abdominal pain or bloating [ ] Frequent or chronic cough [ ] Weight gain or loss [ ] Coughing up blood [ ] Chest pain [ ] Nose, sinus, mouth, throat problems [ ] Palpitations or flutter [ ] Fevers or severe chills [ ] Swelling of hands feet ankles [ ] Night sweats [ ] Convulsions or seizures [ ] Enlarged or swollen lymph glands [ ] Frequent or severe headache [ ] Skin disease or rash [ ] Fainting or loss of consciousness [ ] Easy bruising or bleeding [ ] Extreme fatigue or weakness [ ] Significant joint pains or stiffness [ ] Depression [ ] Changes in bowel habits [ ] Changes in sleep pattern [ ] Changes in appetite [ ] All unmarked were reviewed and found negative. [ ] other system: Vitals and Physical Exam: BP 110/64 Pulse 76 Temp 36.4 ??C (97.5 ??F) (Oral) Resp 16 SpO2 96% Gen: no distress normal breath rate. HEENT: Pupils equal and round. EOMI, Moist oral mucosal membrane wto lesions , eyes wto injection orexudates. No thrush Neck: No stridor No cervical LAP Chest: no crackles. Diminished diffusely. Faint wheeze. Symmetric excursion. Cor: RRR, S1S2, No MRG. Abd: ND Extrem: no C/C/E. Skin no rashes or lesions Musculoskeletal body ache Neuro: no focal deficits Labs/Tests: Diagnostic studies: -CXR: 12/30/2017 -CT: -PFTs: date FVC FEV1 FEV/FVC VC TLC RV RV/TLC Dsb SpO2 02/21/2018 1.78 59 # 0.66 29 37 7.97 39 93## # 13% >200ml improvement ##92 after ambulation -ECHO: -Serology: -PET: -Biopsy: -Other: Labs Summary: -Very severe COPD -Rule out hypersensitivity pneumonitis (birds fancier's disease) -h/o spontaneous pneumothorax in 2006 [ ] GOLD 1 Mild FEV1 >80% [ ] GOLD 2 Moderate 50-80 [ ] GOLD 3 Severe 30-50 [x ] GOLD 4 Very Severe 30 GOLD disease category [ ] A Less sx, low risk ( GOLD I and II, i.e. FEV1 >50 and 0 or 1 AECOPD / year) Short acting bronchodilator when needed. [ ] B More sx, low risk ( GOLD I and II, i.e. FEV1 >50 and 0 or 1 AECOPD / year) LABA or LAMA [ ] C Less sx, high risk ( GOLD III and IV, or 2 AECOPD / year or 1 hospitalization) LABA + ICS or LAMA [x ] D More sx, high risk ( GOLD III and IV, or 2 AECOPD / year or 1 hospitalization) LABA + ICS and/or LAMA Impression/recommendation: -67-year-old woman with very severe COPD GOLD4/Cat D. Here for management. Spirometry showed mixed obstructive and restrictive defect. DLCO is severely reduced. Restriction is likely a reflection of air trapping, instead of true restriction. The conformation will require lung volume study. I don't think it is likely however hypersensitivity pneumonitis has to be ruled out. (See below) Plan 1) continue the current inhaler, i.e. Symbicort 160 2 puffs twice daily and Incruse Ellipta. She wasnot using spacer. I have advised her to always use spacer with Symbicort and gave her a training. Also I advised her to use proair before symbicort and incruse in the morning, she has a significant BD response on PFT. I may switch incruse to Spiriva respimat with the given such limited FEV1. ( the latter may a better way for better drug delivery system in the situation). 2) Will need overnight pulse oximetry to rule out nocturnal desaturation. She does not need oxygen in daytime. A request will be sent to [facility] 3) I will refer you to [facility]. We discussed extensively and she agreed with this. 4) follow-up in 4-8 weeks with lung volume study to check air trapping and a CT scan to check GGO and interstitial changes. ( see below) 5) Prevnar 13 today. 6) She has had cockatiel in the living room > 10 years ago. Since PFT is mixed obst / restrict, HP ( birds fancier's disease) need to be ruled out. Will obtain a noncontrast low-dose CT of the chestand Surinder panel serology. General COPD care: smoking cessation: y influenza vaccine: y Pneumococcal vaccine: never physical activity: pulmonary rehab ( Category B or above): [facility]: Lung cancer screening: Eligibility criteria: 1. Willing and able to undergo lung cancer treatment 2. No signs/symptoms of lung cancer or respiratory infection in past 12 weeks 3. Minimum of 30 pack-years of smoking 4. If former smoker, quit within 15 years 5. Age 55-77 years 6. No history of lung cancer ever or other comorbidities that limit life expectancy to less than 5 years. 75 mins were spent in a face to face conversation with the patient (and accompanying family members,if present) regarding my impressions and recommendations and providing counseling. All the questionswere answered. . Separately, I have spent an additional time in reviewing charts/records/labs/tests, or discussion with other health care providers. This does NOT include the time spent in ( ) Smoking cessation counseling (x ) inhaler technique demonstration and teaching. ( checked if applicable) - I personally reviewed (x ) radiographic images. (x ) pulmonary function testing DATA ( ) Laboratory DATA ( apply if checked ) Thank you very much for participating in the care of this patient. Please contact us at [phone] any further questions or requests. documented in this encounter Plan of Treatment Not on filedocumented as of this encounter Procedures Procedure Name Priority Date/Time Associated Diagnosis Comme nts SURINDER PANEL Routine 02/21/2018 3:05 PM BIRCH (dyspnea on Result s for this EDT exertion) procedure are i n the results section . documented in this encounter Results Surinder Panel (02/21/2018 3:05 PM EDT) [facility] Method Time Signature Surinder Panel GALEN VIERACOCK Test ? Result ?Flag ??Unit ??RefValue [facility] Surinder Panel LABORATORY ??[place] Sera ?Negative ??[place] ?Negative ??Cockatiel ?Negative ??Parakeet ? Negative ??Parrot ? Negative ? ADDITIONAL INFORMATION ------ ?This result must be correlated with patients clinical ?response and should not solely be considered in the ?diagnosis. ?Test Performed by: ?[facility], Room 5066 ?Kev Barron M.D. Allergy-Immunology Diagnostic Lab ?[address] ?[place] [address] Specimen Anatomical Collection Method Collection Time Receive d Time (Source) Location / / Volume Laterality Blood specimen 02/21/2018 3:05 PM 018 8:41 (specimen) EDT AM EDT Resulting Agency Comment Spec In Lab Ariana Harmon MD IMMUNOLOGY ORDERABLES Performing Organization Address City/State/[place] [address] documented in this encounter Visit Diagnoses Diagnosis COPD, very severe Chronic airway obstruction, not elsewher e classified BIRCH (dyspnea on exertion) Other dyspnea and respiratory abnormalit y Restrictive lung disease Other diseases of lung, not elsewhere cl assified documented in this encounter Care Teams Foreman Or Supervisor And Operator Relationship Specialty Start Date End Date Leslie Levy, COAL CHEMIST PCP - General Family Medicine 01/16/[address] [place] [address] documented as of this encounter
--- OUTSIDE RECORDS SUMMARY | 2022-07-16 00:52 | XMS_ITS | Encounter Summary ---
:1950 [place] [address] Care Team Providers Name Role Phone Brittany Huynh MD Primary Care Provider Encounter Details Date Type Department Care Team Description 01/22/2015 Orders Only Functional [facility] Jc Bella APRN Program at [facility] [address] [place] [address] [place] [address] [phone] (Wo rk) Social History Tobacco Use Types Packs/Day Years Used Date Never Assessed Sex Assigned at Date Recorded Not on file documented as of this encounter Plan of Treatment Not on filedocumented as of this encounter Procedures Procedure Name Priority Date/Time Associated Diagnosis Comme nts FILM LIBRARY Routine 01/22/2015 2:58 PM Results f or this STORAGE ONLY DX EDT procedure ar e in SPINE the results section. documented in this encounter Results Film Library- Storage only DX Spine (01/22/2015 2:58 PM EDT) Anatomical Region Laterality Modality Other Specimen (Source) Anatomical Collection Method Collection Time Re ceived Time Location / / Volume Laterality 01/22/2015 2:58 PM EDT Narrative 03/06/2015 2:59 PM EDT This is a Non-reportable exam Procedure Note BRIANA, UNSIGNED REPORT - 03/06/2015Formatt ing of this note might be different from the original. This is a Non-reportable exam Alina Bella APRN IMG FILM LIBRARY ORDERABLES documented in this encounter Visit Diagnoses Not on filedocumented in this encounter Care Teams Adjunct Art History Instructor Relationship Specialty Start Date End Date Brittany Huynh MD PCP - General 02/12/15 01/15/[address] [place] [address] documented as of this encounter
--- OUTSIDE RECORDS SUMMARY | 2022-07-16 00:52 | XMS_ITS | Encounter Summary ---
:1950 Author Organization [facility] [place] [address] Care Team Providers Name Role Phone Brittany Huynh MD Primary Care Provider Encounter Details Date Type Department Care Team Description 05/31/2016 Refill Dermatology at [facility] Wilma Mccoy, REEL OPERATOR [address] [place] [address] Social History Tobacco Use Types Packs/Day Years Used Date Former Smoker Quit: 08/11/20 06 Smokeless Tobacco: Never Used Sex Assigned at Date Recorded Not on file documented as of this encounter Plan of Treatment Not on filedocumented as of this encounter Visit Diagnoses Not on filedocumented in this encounter Care Teams Electronic Wirer Relationship Specialty Start Date End Date Brittany Huynh MD PCP - General 02/12/15 01/15/18 [address] [place] [address] documented as of this encounter
--- OUTSIDE RECORDS SUMMARY | 2022-07-16 00:52 | XMS_ITS | Encounter Summary ---
:1950 Author Organization [facility] Address [address] [place] [address] Care Team Providers Name Role Phone Unavailable Primary Care Provider Unavailable Encounter Details Date Type Department Care Team Description 07/11/2007 Results Only [facility] - Susu Cain son, Priscilla L, TOPPER PRESS OPERATOR conversion [address] [place] [phone] (Wo rk) Social History Tobacco Use Types Packs/Day Years Used Date Smoking Tobacco: Never Assessed Sex Assigned at Date Recorded Not on file documented as of this encounter Plan of Treatment Not on filedocumented as of this encounter Procedures Procedure Name Priority Date/Time Associated Diagnosis Comme nts CYTOPATHOLOGY Routine 07/11/2007 0:00 EST Results for this procedure are i n the results section . documented in this encounter Results CYTOPATHOLOGY (07/11/2007 0:00 EST) Component Value Ref Test Analysis Performed At [facility] Pathology CYTOPATHOLOGY REPORT [facility] Report: [facility] Reports generated via electronic interface contain original data; however they are lacking the format of the original report. Caution should be taken when reading/interpreting unformatte d reports. Name: ? DESTINI ARGUETA ? Accession #: ? [id number] : ? 1950 (Age: 57) ??F ?Collect Date: ? 07/11/2007 Location: ? [facility] ? Receive Date: ? 07/13/2007 Provider: ?PRISCILLA SESAY TOPPER PRESS OPERATOR Copy to: ? [facility] ?[address] ?[place], [place] [address] ? Specimen/Source: ? ThinPrep Pap Test, Vagina, processed on WaddlePrep Imaging System, with manual evaluation Last Menstrual Period: ? 1999 Previous Gynecologic Pathology: ? ASC-US HPV: + ? SPECIMEN ADEQUACY ? Satisfactory for Evaluation - assessment of transformation zone component not appl icable ( e.g. atrophy, vaginal sample, hysterectomy) - scant squamous epithelial component GENERAL CATEGORIZATION ? Negative for Intraepithelial Lesion or Malignancy ? Document reviewed and electronically signed by: ? HEMAL Llanos(ASCP) ? Report Date: ??07/18/2007 15:34 End of Report Specimen (Source) Anatomical Location Collection Method / Collectio n Time Received Time / Laterality Volume 07/11/2007 07/13/2007 Priscilla Sesay NP PATHOLOGY ORDERABLES Performing Organization Address City/State/ZIP Code Phon e Number [facility] [address] [place] [address] SERVICES [facility] [address] [place] [address] documented in this encounter Visit Diagnoses Not on filedocumented in this encounter
--- OUTSIDE RECORDS SUMMARY | 2022-07-16 00:52 | XMS_ITS | Encounter Summary ---
:1950 Author Organization [facility] Address [address] [place] [address] Care Team Providers Name Role Phone Priscilla Bhakta LANDS RESOURCE MANAGER Primary Care Provider Encounter Details Date Type Department Care Team Description 08/12/2015 Hospital Encounter [facility]- [place] Unknown, Provider, [facility] [address] [facility] [phone] [place] [address] (Work) [phone] Social History Tobacco Use Types Packs/Day Years Used Date Smoking Tobacco: Never Assessed Sex Assigned at Date Recorded Not on file documented as of this encounter Discharge Disposition Disposition Code Departure Means Destination Home or Self [facility] documented in this encounter Plan of Treatment Not on filedocumented as of this encounter Visit Diagnoses Not on filedocumented in this encounter Care Teams Auto Garage Attendant Relationship Specialty Start Date End Date Priscilla Bhakta NP PCP - General 12/28/10 03/02/[address] [place] [phone] documented as of this encounter
--- OUTSIDE RECORDS SUMMARY | 2022-07-16 00:52 | XMS_ITS | Encounter Summary ---
:1950 Author Organization [facility] Address [address] [place] [address] Care Team Providers Name Role Phone Unavailable Primary Care Provider Unavailable Encounter Details Date Type Department Care Team Description 07/07/2004 Results Only [facility] - Susu Cain son, Priscilla L, BUSINESS APPLICATIONS DEVELOPER conversion [address] [place] [phone] (Wo rk) Social History Tobacco Use Types Packs/Day Years Used Date Smoking Tobacco: Never Assessed Sex Assigned at Date Recorded Not on file documented as of this encounter Plan of Treatment Not on filedocumented as of this encounter Procedures Procedure Name Priority Date/Time Associated Diagnosis Comme nts CYTOPATHOLOGY Routine 07/07/2004 0:00 EST Results for this procedure are i n the results section . documented in this encounter Results CYTOPATHOLOGY (07/07/2004 0:00 EST) Component Value Ref Test Analysis Performed At [facility] Pathology CYTOPATHOLOGY REPORT [facility] Report: [facility] Reports generated via electronic interface contain original data; however they are lacking the format of the original report. Caution should be taken when reading/interpreting unformatte d reports. Name: ? DESTINI ARGUETA ? Accession #: ? [id number] : ? 1950 (Age: 53) ??F ?Collect Date: ? 07/07/2004 Location: ? [facility] ? Receive Date: ? 07/09/2004 Provider: ?PRISCILLA SESAY NP Copy to: ?PRISCILLA FIELD MD ? Specimen/Source: ?ThinPrep Pap Test, Cervix/Endoce rvix Last Menstrual Period: ? SPECIMEN ADEQUACY ? Satisfactory for Evaluation - transformation zone component present GENERAL CATEGORIZATION ? Epithelial Cell Abnormality INTERPRETATION ? Squamous Cell Abnormality - High grade sq uamous intraepithelial lesion (HSIL). EDUCATIONAL NOTES/RECOMMENDATIONS ? [facility] recommends afsaneh wing the 2001 Consensus Guidelines for the Management of Women with Cervical Cytological Abnormalities (PENNY,2002 ;287:2120-9). Management algorithms have b een distributed by [facility] and are available online at www.ASCCP.org. ? Document reviewed and electronically signed by: ? BRENDEN OBANDO MD ? Report Date: ??07/18/2004 13:09 End of Report Specimen (Source) Anatomical Location Collection Method / Collectio n Time Received Time / Laterality Volume 07/07/2004 07/09/2004 Priscilla Sesay NP PATHOLOGY ORDERABLES Performing Organization Address City/State/ZIP Code Phon e Number [facility] [address] [place] [address] SERVICES [facility] [address] [place] [address] documented in this encounter Visit Diagnoses Not on filedocumented in this encounter
--- OUTSIDE RECORDS SUMMARY | 2022-07-16 00:52 | XMS_ITS | Encounter Summary ---
:1950 Author Organization [facility] Address [address] [place] [address] Care Team Providers Name Role Phone Priscilla Bhakta CHURCH SECRETARY Primary Care Provider Encounter Details Date Type Department Care Team Description 08/12/2015 Results Only [facility] Balwinder Meyer MD [phone] [facility] [facility] [address] [place] [address] (Wo rk) Social History Tobacco Use Types Packs/Day Years Used Date Smoking Tobacco: Never Assessed Sex Assigned at Date Recorded Not on file documented as of this encounter Plan of Treatment Not on filedocumented as of this encounter Procedures Procedure Name Priority Date/Time Associated Diagnosis Comme [facility] SURGICAL PATHOLOGY Routine 08/12/2015 10:28 Resul ts for this EST procedure are i n the results section. documented in this encounter Results SURGICAL PATHOLOGY (08/12/2015 10:28 EST) Component Value Ref Test Analysis Performed At [facility] Method Time Signature Pathology SURGICAL PATHOLOGY REPORT [facility] Report: Reports generated via electronic interface contain [facility] data; CENTER however they are lacking the format of the original report. LABORATORY Caution should be taken when reading/interpreting unformat [facility] reports. SERVICES Name: ? DESTINI ARGUETA ? Accession #: ? [id number] ? : ? 1950 (Age: [age]) ??F ? Collect Date: ? 08/12/2015 ? Location: ? [facility] ? Receive Date: ? 08/13/2015 ? Provider: BALWINDER MEYER MD Copy to: KIMBER RODRIGUEZ MD ? Final Pathologic Diagnosis: ----- femoral head, LEFT, ARTHROPLASTY: - ??Extensive osteonecrosis, consistent with clinical histor y of avascular necrosis. - ??Woven and lamellar bone with evidence of remodeling, consistent with fracture site. ___ Document reviewed and electronically signed by: PEREZ CAREY MD Report ??Date: 08/19/2015 15:46 By the signature above, the attending physician certifies th at he/she has personally conducted a gross and/or microscopic examin ation of the described specimens and rendered or confirmed the above diagnosis. Specimen(s) Received: Femoral head, left Clinical History: AVN left hip; avascular necrosis post fe moral neck fracture fixation; fracture healed, but pt developed secondary ??AVN with crescent fracture at lig teres insertion Gross Description: ? Received in formalin labelled with proper patient identification (initials O, I) and femoral head, left is a femoral head (5.5 x 5.2 x 4.1 cm) with a minimal portion of attached femoral neck (1.1 cm in length x 2.8 cm in diameter). ??There is minimal attached soft tissue. ? The resection margin (inked blue) is clean cut along the femoral neck and becomes jagged and irregular. Adjacent to the femoral neck is a well defined rectangular defect (3.0 x 1. 5 x 1.3 cm). The articular surface is encarnacion-brown and roughened, with osteophyte formation carmel ng the periphery. ??Sectioning reveals trabeculated bone with a focus of ill defined hemorrhage. ? Sewer Repairer sections are submitted, following de calcification, as follows: BLOCK SPRINGER 1- ??bone margin to site of hemorrhage 2- ??cash posting representative bone to articular surface 3- ??jagged and irregular site adjacent to margin Ketty Day 08/13/2015 1:50 PM End of Report Specimen Anatomical Collection Method Collection Time Receive d Time (Source) Location / / Volume Laterality 08/12/2015 10:28 08/13/2015 EST 10:28 EST Balwinder Meyer MD PATHOLOGY ORDERABLES Performing Organization Address City/State/ZIP Code Phon e Number [facility] [address] [place] [address] SERVICES documented in this encounter Visit Diagnoses Not on filedocumented in this encounter Care Teams Registered Health Nurse Relationship Specialty Start Date End Date Priscilla Bhakta, CHURCH SECRETARY PCP - General 12/28/10 03/02/16 [address] [place] [phone] documented as of this encounter
--- OUTSIDE RECORDS SUMMARY | 2022-07-16 00:52 | XMS_ITS | Encounter Summary ---
:1950 [place] [address] Care Team Providers Name Role Phone Brittany Huynh MD Primary Care Provider Encounter Details Date Type Department Care Team Description 12/04/2014 Orders Only Functional [facility] Jc Bella APRN Program at [facility] [address] [place] [address] [place] [address] [phone] (Wo rk) Social History Tobacco Use Types Packs/Day Years Used Date Never Assessed Sex Assigned at Date Recorded Not on file documented as of this encounter Plan of Treatment Not on filedocumented as of this encounter Procedures Procedure Name Priority Date/Time Associated Diagnosis Comme nts FILM LIBRARY Routine 12/04/2014 2:58 PM Results f or this STORAGE ONLY DX EDT procedure ar e in SPINE the results section. documented in this encounter Results Film Library- Storage only DX Spine (12/04/2014 2:58 PM EDT) Anatomical Region Laterality Modality Other Specimen (Source) Anatomical Collection Method Collection Time Re ceived Time Location / / Volume Laterality 12/04/2014 2:58 PM EDT Narrative 03/06/2015 2:59 PM EDT This is a Non-reportable exam Procedure Note BRIANA, UNSIGNED REPORT - 03/06/2015Formatt ing of this note might be different from the original. This is a Non-reportable exam Alina Bella APRN IMG FILM LIBRARY ORDERABLES documented in this encounter Visit Diagnoses Not on filedocumented in this encounter Care Teams Folding Machine Setter Relationship Specialty Start Date End Date Brittany Huynh MD PCP - General 02/12/15 01/15/[address] [place] [address] documented as of this encounter
--- OUTSIDE RECORDS SUMMARY | 2022-07-16 00:52 | XMS_ITS | Encounter Summary ---
:1950 Author Organization [facility] Address [address] [place] [address] Care Team Providers Name Role Phone Unavailable Primary Care Provider Unavailable Encounter Details Date Type Department Care Team Description 01/29/2000 Results Only [facility] - Juan Mckeon MD conversion [address] [place] [address] Social History Tobacco Use Types Packs/Day Years Used Date Smoking Tobacco: Never Assessed Sex Assigned at Date Recorded Not on file documented as of this encounter Plan of Treatment Not on filedocumented as of this encounter Procedures Procedure Name Priority Date/Time Associated Diagnosis Comme nts CYTOPATHOLOGY Routine 01/29/2000 0:00 EDT Results for this procedure are i n the results section . documented in this encounter Results CYTOPATHOLOGY (01/29/2000 0:00 EDT) Component Value Ref Test Analysis Performed At [facility] Method Time Signature Pathology CYTOPATHOLOGY REPORT [facility] Report: [facility] Reports generated via electronic interface contain original data; however they are lacking the format of the original report. Caution should be taken when reading/interpreting unformatte d reports. Name: ? DESTINI ARGUETA ? Accession #: ? [id number] : ? 1950 (Age: 49) ??F ?Collect Date: ? 01/29/2000 Location: ? [facility] ? Receive Date: ? 02/03/2000 Provider: ?JUAN MAGANA MD Copy to: ? Specimen/Source: ?ThinPrep Pap Test, Cervix/Endoce rvix Last Menstrual Period: ? 01/11/00 ? SPECIMEN ADEQUACY ? Satisfactory for evaluation. GENERAL CATEGORIZATION ? Within Normal Limits ? Document reviewed and electronically signed by: ? Radha Matthews [facility](ASCP) ? Report Date: ??02/04/2000 08:07 End of Report Specimen (Source) Anatomical Location Collection Method / Collectio n Time Received Time / Laterality Volume 01/29/2000 02/03/2000 Juan Magana MD PATHOLOGY ORDERABLES Performing Organization Address City/State/ZIP Code Phon e Number [facility] [address] [place] [address] SERVICES [facility] [address] [place] [address] documented in this encounter Visit Diagnoses Not on filedocumented in this encounter
--- OUTSIDE RECORDS SUMMARY | 2022-07-16 00:52 | XMS_ITS | Encounter Summary ---
:1950 Author Organization [facility] [place] [address] Care Team Providers Name Role Phone Leslie Levy APRN Primary Care Provider Encounter Details Date Type Department Care Team Description 02/21/2018 Hospital Encounter Pulmonology at [facility] pulmonary disease, [place] unspecified [place] [address] Social History Tobacco Use Types Packs/Day [...] mg Tablet documented as of this encounter Procedure Notes Nadya Maloney MD - 02/21/2018 1:48 PM EDTAssociated Order(s): PULMONARY FUNCTION TEST Pulmonary Function Test Interpretation FEV1 is reduced. The FEV1/FVC ratio is reduced. After inhalation of albuterol, there was a 150 mL (23%) improvement in FEV1. Uncorrected single-breath diffusion capacity for CO was reduced. Resting oxyhemoglobin saturation was low-normal (93%). Resting oximetry was assessed while the patient was breathing room air. Oxyhemoglobin saturation during ambulation was low-normal (92%). Ambulatory oximetry was assessed while the patient was breathing room air. Impression: [x] Very severe obstructive ventilatory defect (FEV1 <34% predicted) [x] Reduced FVC suggests possible restriction. Can be confirmed by lung volumes. [x] Diffusion impairment present. Insignificant bronchodilator response by ATS criteria. Clinical correlation recommended. NADYA MALONEY MD documented in this encounter Plan of Treatment Not on filedocumented as of this encounter Procedures Procedure Name Priority Date/Time Associated Diagnosis Comme nts PULMONARY FUNCTION Routine 02/21/2018 1:50 PM Chronic obstruct radha Results for this TEST EDT pulmonary disease, procedure are in unspecified COPD the results type section. documented in this encounter Results Pulmonary Function Testing (02/21/2018 1:50 PM EDT) Narrative Nadya Maloney MD - 02/21/2018 1:50 PM EDT Nadya Maloney MD ? 02/21/2018 ??1:50 PM Pulmonary Function Test Interpretation FEV1 is reduced. ??The FEV1/FVC ratio is reduced. ??After inhalation of albuterol, there was a 150 mL (23%) improvement in FEV1. Uncorrected single-breath diffusion [place] for CO was reduced. Resting oxyhemoglobin saturation was low -normal (93%). Resting oximetry was assessed while the patient was breathing room air. Oxyhemoglobin saturation during ambulati on was low-normal (92%). Ambulatory oximetry was assessed while t he patient was breathing room air. Impression: [x] Very severe obstructive ventilatory defect (FEV1 <34% predicted) [x] Reduced FVC suggests possible restri ction. ??Can be confirmed by lung volumes. [x] Diffusion impairment present. Insignificant bronchodilator response by ATS criteria. ??Clinical correlation recommended. NADYA MALONEY MD Ariana Harmon MD PFT ORDERABLES documented in this encounter Visit Diagnoses Diagnosis Chronic obstructive pulmonary disease, u nspecified COPD type documented in this encounter Care Teams Bolting Machine Operator Relationship Specialty Start Date End Date Leslie Levy, RECYCLABLE MATERIALS COLLECTOR PCP - General Family Medicine 01/16/[address] [place] [address] documented as of this encounter
--- OUTSIDE RECORDS SUMMARY | 2022-07-16 00:52 | XMS_ITS | Encounter Summary ---
:1950 Author Organization Address [address] [place] [address] Care Team Providers Name Role Phone Leslie Levy Primary Care Provider Encounter Details Date Type Department Care Team Description 03/06/2019 Hospital Encounter [facility]- [place] Unknown, Provider, [facility] [address] [facility] [phone] [place] [address] (Work) [phone] Social History Tobacco Use Types Packs/Day Years Used Date Smoking Tobacco: Never Assessed Sex Assigned at Date Recorded Not on file documented as of this encounter Discharge Disposition Disposition Code Departure Means Destination Home or Self [facility] documented in this encounter Plan of Treatment Not on filedocumented as of this encounter Visit Diagnoses Not on filedocumented in this encounter Care Teams Pneumatic Tester Relationship Specialty Start Date End Date Leslie Levy FNP PCP - General 03/03/16 03/13/19 [address] [facility] [place] [place] [address] documented as of this encounter
--- OUTSIDE RECORDS SUMMARY | 2022-07-16 00:52 | XMS_ITS | Encounter Summary ---
:1950 Author Organization [facility] Address [address] [place] [address] Care Team Providers Name Role Phone Priscilla Bhakta CELLULAR EQUIPMENT INSTALLER Primary Care Provider Encounter Details Date Type Department Care Team Description 02/27/2016 Results Only [facility]- David Borrego MD [phone] [place] [address] [address] [place] [place], [place] [phone] (Wo rk) Social History Tobacco Use Types Packs/Day Years Used Date Smoking Tobacco: Never Assessed Sex Assigned at Date Recorded Not on file documented as of this encounter Plan of Treatment Not on filedocumented as of this encounter Procedures Procedure Name Priority Date/Time Associated Diagnosis Comme [facility] SURGICAL PATHOLOGY Routine 02/26/2016 18:28 Resul ts for this EDT procedure are i n the results section. documented in this encounter Results SURGICAL PATHOLOGY (02/26/2016 18:28 EDT) Component Value Ref Test Analysis Performed At [facility] Method Time Signature Pathology SURGICAL PATHOLOGY REPORT [facility] MEDICAL Report: Reports generated via electronic interface contain [facility] data; CENTER however they are lacking the format of the original report. LABORATORY Caution should be taken when reading/interpreting unformat [facility]rystal reports. SERVICES Name: ? DESTINI ARGUETA ? Accession #: ? [id number] ? : ? 1950 (Age: [age]) ??F ? Collect Date: ? 02/26/2016 ? Location: ? [facility] ? Receive Date: ? 03/01/2016 ? Provider: DAIVD EDGAR MD Copy to: IVELISSE HOGAN SPECIFICATION CONSULTANT ? Final Pathologic Diagnosis: MUCOSA OF LIP, UPPER, EXCISIONAL BIOPSY: - Hemangioma. - Hemangioma present at peripheral and deep margins. Microscopic Description: Sections consist of an excision of squam ous mucosa. ??There is a thin layer of overlying orthokeratosis and parakeratosis. ??The mucosa is slightly acanthotic but otherwise unremarkable. ??Within the underlying tissues, there is a vascular proliferation. ??The proliferation consists of large, thin -walled, vascular structures of varying size a nd shape. ??The structures are lined by a flattened endothelium and most are filled with erythrocytes. ??(Dr. Jc montaño)/[facility] Document reviewed and electronically signed by: TRUDY TEIXEIRA MD Report ??Date: 03/02/2016 17:16 By the signature above, the attending physician certifies th at he/she has personally conducted a gross and/or microscopic examin ation of the described specimens and rendered or confirmed the above diagnosis. Specimen(s) Received: Upper lip excisional bx Clinical History: Upper lip vascular lesion Gross Description: ? Received in formalin labelled with proper patient identification (initials O, I) and upper lip is a shave excision of pink-red focally thickened skin (0.8 x 0.7 x 0.2 cm). The sp ecimen is inked, trisected and entirely submitted in 1. Manuel Sterling 03/02/2016 8:24 AM End of Report Specimen Anatomical Collection Method Collection Time Receive d Time (Source) Location / / Volume Laterality 02/26/2016 18:28 03/01/2016 EDT 18:28 EDT David Edgar MD PATHOLOGY ORDERABLES Performing Organization Address City/State/ZIP Code Phon e Number [facility] [address] [place] [address] SERVICES documented in this encounter Visit Diagnoses Not on filedocumented in this encounter Care Teams Detective Sergeant Relationship Specialty Start Date End Date Priscilla Bhakta, CELLULAR EQUIPMENT INSTALLER PCP - General 12/28/10 03/02/[address] [facility] [address] [place] [address] documented as of this encounter
--- OUTSIDE RECORDS SUMMARY | 2022-07-16 00:52 | XMS_ITS | Encounter Summary ---
:1950 Author Organization [facility] Address [address] [place] [address] Care Team Providers Name Role Phone Unavailable Primary Care Provider Unavailable Encounter Details Date Type Department Care Team Description 01/06/2006 Results Only [facility] - Anibal Palencia MD conversion [address] [place] [phone] Social History Tobacco Use Types Packs/Day Years Used Date Smoking Tobacco: Never Assessed Sex Assigned at Date Recorded Not on file documented as of this encounter Plan of Treatment Not on filedocumented as of this encounter Procedures Procedure Name Priority Date/Time Associated Diagnosis Comme [facility] SURGICAL PATHOLOGY Routine 01/06/2006 0:00 EDT Re sults for this procedure are i n the results section. documented in this encounter Results SURGICAL PATHOLOGY (01/06/2006 0:00 EDT) Component Value Ref Test Analysis Performed At [facility] Method Time Signature Pathology SURGICAL PATHOLOGY REPORT JUAN TELLES Report: Reports generated via electronic interface contain rosie christine data; MAXIMO DAVIS however they are lacking the format of the original report. Caution should be taken when reading/interpreting unformatte d reports. Name: ? DESTINI ARGUETA ? Accession #: ? [id number] ? : ? 1950 (Age: 55) ??F ? Collect Date: ? 01/06/2006 ? Location: ? [facility] ? Receive Date: ? 01/06/2006 ? Provider: MICHELINE STEIN MD Copy to: KATIUSKA GOLDMAN MD ? Final Pathologic Diagnosis: ? Antrum, biopsy: 1. ?Oxyntic type mucosa with reactive gastropat hy. 2. ?No Helicoba cter pylori-like microorganisms identified on H & E stained sections. Document reviewed and electronically signed by: DAVE ANGEL [facility] Report ??Date: 01/10/2006 16:25 By the signature above, the attending physician certifies th at he/she has personally conducted a gross and/or microscopic examin ation of the described specimens and rendered or confirmed the above diagnosis. Specimen(s) Received: ? Bx antrum Clinical History: ? Abd pain; mild gastritis; ? NSAID induced Gross Description: ? Received in Hollande' s fixative labelled [place] and bx antrum is a 0.3 x 0.3 x 0.3 cm tissue fragment submitted intact in one casse tte. ??(Dr. Espinoza)/[facility] End of Report Specimen (Source) Anatomical Collection Method Collection Time Re ceived Time Location / / Volume Laterality 01/06/2006 01/06/2006 15:1 8 EDT Anibal Stein MD PATHOLOGY ORDERABLES Performing Organization Address City/State/ZIP Code Phon e Number [facility] [address] [place] [address] SERVICES [facility] [address] [place] [address] documented in this encounter Visit Diagnoses Not on filedocumented in this encounter
--- OUTSIDE RECORDS SUMMARY | 2022-07-16 00:52 | XMS_ITS | Encounter Summary ---
:1950 Author Organization [facility] Address [address] [place] [address] Care Team Providers Name Role Phone Unavailable Primary Care Provider Unavailable Encounter Details Date Type Department Care Team Description 08/06/2004 Results Only [facility] [place] - Bethanie Jennings MD Maple conversion [address] [place] [address] [place] [address] Social History Tobacco Use Types Packs/Day Years Used Date Smoking Tobacco: Never Assessed Sex Assigned at Date Recorded Not on file documented as of this encounter Plan of Treatment Not on filedocumented as of this encounter Procedures Procedure Name Priority Date/Time Associated Diagnosis Comme [facility] SURGICAL PATHOLOGY Routine 08/06/2004 0:00 EST Re sults for this procedure are i n the results section. documented in this encounter Results SURGICAL PATHOLOGY (08/06/2004 0:00 EST) Component Value Ref Test Analysis Performed At [facility] Method Time Signature Pathology SURGICAL PATHOLOGY REPORT JUAN TELLES Report: Reports generated via electronic interface contain rosie christine data; MAXIMO DAVIS however they are lacking the format of the original report. Caution should be taken when reading/interpreting unformatte d reports. Name: ? DESTINI ARGUETA ? Accession #: ? [id number] ? : ? 1950 (Age: 54) ??F ? Collect Date: ? 08/06/2004 ? Location: ? [facility] ? Receive Date: ? 08/07/2004 ? Provider: PRISCILLA JENNINGS MD Copy to: KATIUSKA GOLDMAN MD ? Final Pathologic Diagnosis: A. ?Cervix, 3 o'clock, biopsy: 1. ?Atrophic squamous mucosa with chronic infla mmation. B. ?Cervix, 9 o'clock, biopsy: 1. ?Squamous mu cosa with high grade squamous intraepithelial lesion (AARON II-III). Document reviewed and electronically signed by: BRENDEN OBANDO MD Report ??Date: 08/10/2004 16:46 By the signature above, the attending physician certifies th at he/she has personally conducted a gross and/or microscopic examin ation of the described specimens and rendered or confirmed the above diagnosis. Specimen(s) Received: A. ?Bx 3 B. ?Bx 9 Clinical History: ? Vaginal and cervical atrophy os stenotic. ??Not able to do ECC, PAP HGSIL [id number] Gross Description: ? Received in formalin labelled [place] and cx 3 o'clock is a encarnacion-white 0.2 x 0.2 x 0.2 cm soft tiss ue fragment. ??The specimen is entirely submitted as (A). Received in formalin labelled [place] a nd cx 9 is a encarnacion-white friable 0.3 x 0.2 x 0.2 cm soft tissue fra gment. ??The specimen is entirely submitted as (B). (Juan Negro)/[facility] End of Report Specimen (Source) Anatomical Collection Method Collection Time Re ceived Time Location / / Volume Laterality 08/06/2004 08/07/2004 8:43 EST Priscilla Jennings MD PATHOLOGY ORDERABLES Performing Organization Address City/State/ZIP Code Phon e Number [facility] [address] [place] [phone] SERVICES [facility] [address] [place] [address] documented in this encounter Visit Diagnoses Not on filedocumented in this encounter
--- OUTSIDE RECORDS SUMMARY | 2022-07-16 00:52 | XMS_ITS | Encounter Summary ---
:1950 Author Organization [facility] [place] [address] Care Team Providers Name Role Phone Leslie Levy APRN Primary Care Provider Encounter Details Date Type Department Care Team Description 02/23/2018 Telephone Pulmonology at [facility] [place] [place] [address] Social History Tobacco Use Types Packs/Day Years Used Date Former Smoker Quit: 08/11/20 06 Smokeless Tobacco: Never Used Sex Assigned at Date Recorded Not on file documented as of this encounter Miscellaneous Notes Telephone Encounter - Ting Herrera RT - 02/23/2018 10:43 AM EDT Faxed pulmonary rehab referral and lining marker note to [facility] pulmonary rehab program documented in this encounter Plan of Treatment Not on filedocumented as of this encounter Visit Diagnoses Not on filedocumented in this encounter Care Teams Waste[employer] Treatment Plant Supervisor Relationship Specialty Start Date End Date Leslie Levy APRN PCP - General Family Medicine 01/16/[address] [place] [address] documented as of this encounter
--- OUTSIDE RECORDS SUMMARY | 2022-07-16 00:52 | XMS_ITS | Encounter Summary ---
:1950 Author Organization [facility] Address [address] [place] [address] Care Team Providers Name Role Phone Mila Masters ADJUNCT FACULTY INSTRUCTOR Primary Care Provider Encounter Details Date Type Department Care Team Description 02/10/2022 Lab Requisition [facility] Outr Resulting Lab, Pathology & Laboratory Provider [facility] [address] [place] [address] Social History Tobacco Use Types Packs/Day Years Used Date Smoking Tobacco: Never Assessed Sex Assigned at Date Recorded Not on file documented as of this encounter Plan of Treatment Not on filedocumented as of this encounter Procedures Procedure Name Priority Date/Time Associated Diagnosis Comme nts PTH INTACT Routine 02/10/2022 7:10 EDT Results for this procedure are i n the results section . documented in this encounter Results PTH INTACT (02/10/2022 7:10 EDT) P athologist Signature Intact PTH 36 19 - 88 02/11/2022 [facility] pg/mL 8:36 EDT [facility] Specimen Anatomical Collection Method Collection Time Receive d Time (Source) Location / / Volume Laterality Blood VENOUS BLOOD / 02/10/2022 7:10 02/11/2022 8:36 Unknown EDT EDT Provider Outr Resulting Lab CHEMISTRY & BLOOD GAS SOLEDAD Parekh Organization Address City/State/ZIP Code Phon e Number [facility] [address] [place] [address] SERVICES documented in this encounter Visit Diagnoses Not on filedocumented in this encounter Care Teams Faith Healer Relationship Specialty Start Date End Date Mila Masters, ADJUNCT FACULTY INSTRUCTOR PCP - General 03/14/19 documented as of this encounter
--- OUTSIDE RECORDS SUMMARY | 2022-07-16 00:52 | XMS_ITS | Encounter Summary ---
:1950 [place] [address] Care Team Providers Name Role Phone Leslie Levy APRN Primary Care Provider Encounter Details Date Type Department Care Team Description 01/26/2018 Orders Only Pulmonology at [facility] Ariana Harmon, Chronic obstructive [facility] pulmonary disease, [facility] [place] [address] [address] [phone] PULMONARY MEDICI [place], [place] [address] Social History Tobacco Use Types Packs/Day Years Used Date Former Smoker Quit: 08/11/20 06 Smokeless Tobacco: Never Used Sex Assigned at Date Recorded Not on file documented as of this encounter Plan of Treatment Not on filedocumented as of this encounter Results Pulmonary Function Testing (02/21/2018 [...] obstructive pulmonary disease, u nspecified COPD type Chronic obstructive pulmonary disease, u nspecified COPD type documented in this encounter Care Teams Vp Legal Affairs Relationship Specialty Start Date End Date Leslie Levy, SECURITY OFFICER PCP - General Family Medicine 01/16/[address] [place] [address] documented as of this encounter
--- OUTSIDE RECORDS SUMMARY | 2022-07-16 00:52 | XMS_ITS | Encounter Summary ---
:1950 Author Organization [facility] Address [address] [place] [address] Care Team Providers Name Role Phone Unavailable Primary Care Provider Unavailable Encounter Details Date Type Department Care Team Description 11/10/2005 Results Only [facility] - Anibal Palencia MD conversion [address] [place] [phone] Social History Tobacco Use Types Packs/Day Years Used Date Smoking Tobacco: Never Assessed Sex Assigned at Date Recorded Not on file documented as of this encounter Plan of Treatment Not on filedocumented as of this encounter Procedures Procedure Name Priority Date/Time Associated Diagnosis Comme [facility] SURGICAL PATHOLOGY Routine 11/10/2005 0:00 EST Re sults for this procedure are i n the results section. documented in this encounter Results SURGICAL PATHOLOGY (11/10/2005 0:00 EST) Component Value Ref Test Analysis Performed At [facility] Method Time Signature Pathology SURGICAL PATHOLOGY REPORT JUAN TELLES Report: Reports generated via electronic interface contain rosie christine data; MAXIMO DAVIS however they are lacking the format of the original report. Caution should be taken when reading/interpreting unformatte d reports. Name: ? DESTINI ARGUETA ? Accession #: ? [id number] ? : ? 1950 (Age: 55) ??F ? Collect Date: ? 11/10/2005 ? Location: ? [facility] ? Receive Date: ? 11/10/2005 ? Provider: MICHELINE STEIN MD Copy to: KATIUSKA GOLDMAN MD ? Final Pathologic Diagnosis: ? Colon, 15 cm, polyp, biopsy: 1. ?Hyperplastic polyp. 2. ?No adenoma is identified. ?? Document reviewed and electronically signed by: Kimberly Oconnell MD Report ??Date: 11/12/2005 14:38 By the signature above, the attending physician certifies th at he/she has personally conducted a gross and/or microscopic examin ation of the described specimens and rendered or confirmed the above diagnosis. Specimen(s) Received: ? Bx at 15 cm (polyp) Clinical History: ? Lower abd pain, change in bowel habits Gross Description: ? Received in Hollande's fixative l abelled [place] and bx at 15 cm are four encarnacion-pink irregular tiss ue fragments varying in size from 0.1 x 0.2 x 0.2 cm to 0.2 x 0.2 x 0.3 cm. ??The specimen is entirely subm itted in one cassette. (Dr. Esquivel)/[facility] ?? End of Report Specimen (Source) Anatomical Collection Method Collection Time Re ceived Time Location / / Volume Laterality 11/10/2005 11/10/2005 15:2 3 EST Anibal Stein MD PATHOLOGY ORDERABLES Performing Organization Address City/State/ZIP Code Phon e Number [facility] [address] [place] [address] SERVICES [facility] [address] [place] [address] documented in this encounter Visit Diagnoses Not on filedocumented in this encounter
--- OUTSIDE RECORDS SUMMARY | 2022-07-16 00:52 | XMS_ITS | Encounter Summary ---
:[address] [facility] [place] [address] Care Team Providers Name Role Phone Brittany Huynh MD Primary Care Provider Encounter Details Date Type Department Care Team Description 11/01/2017 [facility] [place] [facility] [place] [address] [place] [address] [phone] (Wo rk) Social History Tobacco Use Types [...] Associated Diagnosis Comme nts FILM LIBRARY Routine 11/01/2017 12:00 AM Results for this STORAGE ONLY DX EST procedure ar e in CHEST the results section. documented in this encounter Results Film Library- Storage Only DX Chest (11/01/2017 12:00 AM EST) Specimen (Source) Anatomical Location Collection Method / Collectio n Time Received Time / Laterality Volume Narrative [facility] - 01/12/2018 8:54 PM EDT This exam is for storage only and is aut o-finalizing. Bhargav Curiel MD IMG FILM LIBRARY ORDERABLES Performing Organization Address City/State/ZIP Code Phon e Number [place], [place] documented in this encounter Visit Diagnoses Not on filedocumented in this encounter Care Teams Privacy Manager Relationship Specialty Start Date End Date Brittany Huynh MD PCP - General 02/12/15 01/15/18 [address] [place] [address] documented as of this encounter
--- OUTSIDE RECORDS SUMMARY | 2022-07-16 00:52 | XMS_ITS | Encounter Summary ---
:1950 Author Organization [facility] Address [address] [place] [address] Care Team Providers Name Role Phone Mila Masters VAN DRIVER Primary Care Provider Encounter Details Date Type Department Care Team Description 01/16/2021 Lab Requisition [facility] Outr Resulting Lab, Pathology & Laboratory Provider [facility] [address] [place] [address] Social History Tobacco Use Types Packs/Day Years Used Date Smoking Tobacco: Never Assessed Sex Assigned at Date Recorded Not on file documented as of this encounter Plan of Treatment Not on filedocumented as of this encounter Procedures Procedure Name Priority Date/Time Associated Diagnosis Comme nts COVID-19 TEST [facility] Today 01/16/2021 15:35 LAB PCR EDT COVID-19 TESTING Routine 01/16/2021 15:35 Results for this EDT procedure are i n the results section. documented in this encounter Results COVID-19 TEST [facility] LAB PCR (01/16/2021 15:35 EDT) Specimen Anatomical Location Collection Method Collection Time Received Time (Source) / Laterality / Volume Swab ENTIRE NASOPHARYNX 01/16/2021 15:35 01/16 / Unknown EDT 20:39 EDT Provider Outr Resulting Lab MICROBIOLOGY - GENERAL ORD ERABLES Performing Organization Address City/State/ZIP Code Phon e Number [facility] [address] [place] [address] SERVICES COVID-19 TESTING (01/16/2021 15:35 EDT) [facility] Time Signature COVID-19 Negative Negative 01/17/2021 [facility] rt-PCR Result 13:05 EDT [facility]ENTER [facility] Comment: This test has not been FDA cleared or ap proved. This test has been authorized by FDA under an EUA for use by authorized laboratories. This test has been authorized only for detection of nucleic acid fro m 2019-nCoV, not for any other viruses o r pathogens. This test is only authorized for the duration of the declaration that circumstances exist justifying the authorization of emergency use of in vitro d iagnostic tests for detection and/or elisabeth gnosis of 2019-nCoV under section 564(b)(1) of Act, 21 U.S.C ?? 360bbb-3(b) (1), unless the authorization is terminated or revoked sooner. Negative results do not preclude 2019-nC oV infection and should not be used as the sole basis for treatment or other patient management decisions. Negative results must be combined with clinical observa tions, patient history, and epidemiologi nickie information. Testing was performed using the joey SA RS-CoV-2 assay ([employer] on the Joey 6800 System Performing Lab Joey 6800 [facility] 01/17/2021 13:05 E DT [facility] Lab LABORATORY SERVICES Specimen Anatomical Collection Method Collection Time Receive d Time (Source) Location / / Volume Laterality Swab 01/16/2021 15:35 01/16/2021 EDT 20:39 EDT Provider Outr Resulting Lab MICROBIOLOGY - GENERAL ORD ERABLES Performing Organization Address City/State/ZIP Code Phon e Number [facility] [address] [place] [address] SERVICES documented in this encounter Visit Diagnoses Not on filedocumented in this encounter Care Teams Telephone Supervisor Relationship Specialty Start Date End Date Mila Masters, HEBERT PCP - General 03/14/19 documented as of this encounter
--- OUTSIDE RECORDS SUMMARY | 2022-07-16 00:53 | XMS_ITS | Encounter Summary ---
:1950 [place] [address] Care Team Providers Name Role Phone Brittany Huynh MD Primary Care Provider Encounter Details Date Type Department Care Team Description 12/01/2006 Orders Only Functional Mandaen Jc Bella APRN Program at [facility] [address] [place] [address] [place] [address] [phone] (Wo rk) Social History Tobacco Use Types Packs/Day Years Used Date Never Assessed Sex Assigned at Date Recorded Not on file documented as of this encounter Plan of Treatment Not on filedocumented as of this encounter Procedures Procedure Name Priority Date/Time Associated Diagnosis Comme nts FILM LIBRARY Routine 12/01/2006 2:58 PM Results f or this STORAGE ONLY MR EDT procedure ar e in SPINE the results section. documented in this encounter Results Film Library- Storage only MR Spine (12/01/2006 2:58 PM EDT) Anatomical Region Laterality Modality Other Specimen (Source) Anatomical Collection Method Collection Time Re ceived Time Location / / Volume Laterality 12/01/2006 2:58 PM EDT Narrative 03/06/2015 2:59 PM EDT This is a Non-reportable exam Procedure Note BRIANA, UNSIGNED REPORT - 03/06/2015Formatt ing of this note might be different from the original. This is a Non-reportable exam Alina Bella APRN IMG FILM LIBRARY ORDERABLES documented in this encounter Visit Diagnoses Not on filedocumented in this encounter Care Teams Art Sales Consultant Relationship Specialty Start Date End Date Brittany Huynh MD PCP - General 02/12/15 01/15/[address] [place] [address] documented as of this encounter
--- NOTE | 2022-07-16 08:15 | DI.US_ITS ---
Exam(s) US HERNIA EXAM: US HERNIA CLINICAL HISTORY: RLQ pain, R10.31, 1 week of inguinal pain. No GI issues. TECHNIQUE: Ultrasound was performed using standard protocol over the area of apparent clinical lanre rn. COMPARISON: None FINDINGS: Submitted images of the right lower quadrant abdominal wall do not reveal evidence of an obvious wes ia. Also no mass nor abnormal superficial fluid collection. IMPRESSION: No hernia evident on these images. DATA REPOSITORY:
== END 2022-07-16 01:10 ==
LOC: DI 00:50
PROVIDERS: PCP Nurse Practitioner; Visit Provider Obstetrics & Gynecology Gynecology
DX: R10.31 Right lower quadrant pain (principal)
CPT/HCPCS: 76857

== ENCOUNTER → 2022-08-10 14:41 | Outpatient (BNVA) | payer OTHER, SELFPAY | PROVIDERS: PCP Nurse Practitioner; Referring Provider Nurse Practitioner; Visit Provider Surgery | DX: R10.31 Right lower quadrant pain (principal) | CPT/HCPCS: 99213 ==

== ENCOUNTER 2022-08-13 00:31 | Outpatient (CLI) | payer OTHER, SELFPAY ==
--- NOTE | 2022-08-13 08:00 | DI.CT_ITS ---
Exam(s) CT CHEST WO EXAM: CT CHEST WO CLINICAL HISTORY: new GAY nodule on last scan,MULT PULMONARY NODULES, R91.8. TECHNIQUE: Imaging protocol: Axial computed tomography images were obtained and coronal and sagittal reformatted images were created and reviewed. COMPARISON: CT CT CHEST LUNG CANCER SCREEN from 02/24/2022 FINDINGS: The examination is limited due to patient motion artifact. Tracheobronchial tree: Patent where visualized. Pulmonary parenchyma: No consolidation or dominant measurable mass. The nodules are not visualized on the current examination. This may be due to the significant patient motion artifact present. No ne w pulmonary nodules are appreciated. Mediastinum and Sil: No dominant adenopathy or fluid collection. The esophagus is unremarkable. Thyroid gland: Unremarkable. Pleura: No effusion or pneumothorax. Heart: The heart is not dilated. Coronary artery calcifications are present. No pericardial effusion . Aorta: Thoracic aorta non-dilated. Atherosclerosis is present. Upper abdomen: Unremarkable. Lymph nodes: Within normal limits. Soft tissues: Unremarkable. Bones:Within normal limits for the patient's age. There is a stable chronic lower thoracic compressi on fracture deformity. IMPRESSION: 1. Suboptimal examination due to significant patient motion artifact. 2. The previously seen pulmonary nodules are not visualized on the current examination. This may be due to the patient motion. No new nodules are seen. RADIATION DOSE DELIVERED: 596.34mGy.cm Total DLP 596.34mGy.cm Total DLP DATA REPOSITORY: All CT scans at this facility are submitted to the National Radiology Data Registry (NRDR) Dose Index Registry (DIR) with the [employer] (ACR). RADIATION OPTIMIZATION: All CT scans at this facility use at least one of these dose optimization te chniques: automated exposure control; mA and/or kV adjustment per patient size (includes targeted exa ms where dose is matched to clinical indication); or iterative reconstruction.
== END 2022-08-13 00:51 ==
LOC: DI 00:32
PROVIDERS: PCP Nurse Practitioner; Visit Provider Student in an Organized Health Care Education/Training Program
DX: R91.8 Other nonspecific abnormal finding of lung field (principal)
CPT/HCPCS: 71250

== ENCOUNTER 2022-09-09 14:35 | Outpatient (REF) | payer OTHER, SELFPAY ==
[2022-09-11 00:46] LABS: Influenza A RNA Result Negative (Negative); Influenza B RNA Result Negative (Negative); RSV RNA Result Negative (Negative)
== END 2022-09-09 14:36 | disposition home or self-care (01) ==
LOC: LBN 14:35
PROVIDERS: PCP Nurse Practitioner; Visit Provider Nurse Practitioner
DX: B34.9 Viral infection, unspecified (principal); R05.9 Cough, unspecified; Z20.822 Contact with and (suspected) exposure to COVID-19
CPT/HCPCS: 87631

== ENCOUNTER 2022-09-10 01:19 | Outpatient (CLI) | payer OTHER, SELFPAY ==
[2022-09-10] MEDS: Barium Sulfate 2% W/V-Berry Smoothie 450 ML BTL 900 ML PO (09:32)
[2022-09-10 09:35] LABS: CREATININE 0.9 mg/dL (0.55-1.02); Estimated GFR 67.92 (mL/min/1.73m2)
[2022-09-10] MEDS: Normal Saline - Diluent 50 ML VIAL IJ (11:08)
--- NOTE | 2022-09-10 11:09 | DI.CT_ITS ---
Exam(s) CT ABDOMEN PELVIS W EXAM: CT ABDOMEN PELVIS W CLINICAL HISTORY: rt deep inguinal abd pain, r10.31. TECHNIQUE: Imaging Protocol: Axial computed tomography images with coronal and sagittal reformatted images were created and reviewed CONTRAST MATERIAL: Intravenous: Omnipaque 350 Contrast volume:100 ml Oral: yes COMPARISON: CT,NM,TMT NM MPI REST STRESS GRP from 08/10/2021 CR,XR XR RIBS RT W PA LAT CHEST from 10/23/[address] CHEST WO from 08/13/2022 FINDINGS: ABDOMEN: Lung Bases: Infiltrate right middle lobe. Not seen on recent chest CT. Liver: Normal density. No measurable mass. Gallbladder and biliary tract: No radiodense calculus or dilation. Pancreas: Normal density, no abnormal calcifications or inflammatory process. Spleen: Normal. Kidneys: Normal size, contour and axis. No radiodense stones or obstructive uropathy. No masses seen. Adrenal glands: No masses seen. Abdominal Aorta: Abdominal portion non-dilated. Atherosclerotic changes. Bones: Stable moderate compression fracture of T10 and mild compression fracture of T12. PELVIS: Bladder: No gross wall thickening. No calculi.No focal mass. Bowel: Large quantity of stool right and transverse colon. Descending Ding and rectosigmoid relative ly free of stool. Sigmoid diverticulosis no definite diverticulitis. There is some streak artifact somewhat obscuring visualization of a portion of the distal descending colon no obstruction or bowel wall thickening. Appendix normal. Peritoneal cavity: No ascites, collection or mesenteric inflammatory response. Bones: Left hip prosthesis. Reproductive organs: Within normal limits. Lymph nodes: Unremarkable. Soft tissues: No inguinal or abdominal wall hernias. Impression: Right middle lobe infiltrate. No significant abnormality abdomen or pelvis. Unexpected findings RADIATION DOSE DELIVERED: 770.05mGy.cm Total DLP DATA REPOSITORY: All CT scans at this facility are submitted to the National Radiology Data Registry (NRDR) Dose Index Registry (DIR) with the [employer] ([employer]). RADIATION OPTIMIZATION: All CT scans at this facility use at least one of these dose optimization te chniques: automated exposure control; mA and/or kV adjustment per patient size (includes targeted exa ms where dose is matched to clinical indication); or iterative reconstruction.
[2022-09-10] MEDS: Omnipaque 350 MG/ML 500 ML BTL-Imaging package 100 ML IJ (11:13)
== END 2022-09-10 01:39 ==
LOC: DI 01:21
PROVIDERS: PCP Nurse Practitioner; Visit Provider Physical Therapy Assistant
DX: R10.31 Right lower quadrant pain (principal)
CPT/HCPCS: 74177; 82565

== ENCOUNTER 2022-11-12 01:08 | Outpatient (CLI) | payer OTHER, SELFPAY ==
--- NOTE | 2022-11-12 14:43 | DI.RAD_ITS ---
Exam(s) XR CHEST 2V PA LATERAL EXAM: XR CHEST 2V PA LATERAL CLINICAL HISTORY: f/u RML pneumonia,J18.9 TECHNIQUE: 2D digital imaging was performed of the chest. Two images were obtained. PA and lateral views were obtained. COMPARISON: CR XR CHEST 2V PA LATERAL from 01/26/2021 FINDINGS: MEDIASTINUM: Normal. HEART: Normal. PULMONARY VASCULATURE: Normal. LUNGS: No focal consolidating infiltrates. PLEURAL SPACE: No pleural effusion or pneumothorax. BONE:Within normal limits for the patient's age. There are old thoracic compression deformities. Th ere is exaggerated kyphosis of the thoracolumbar junction again noted. OTHER FINDINGS:Normal. IMPRESSION: No acute pulmonary findings. DATA REPOSITORY: RADIATION DOSE DELIVERED:
== END 2022-11-12 01:28 ==
LOC: DI 01:09
PROVIDERS: PCP Nurse Practitioner; Visit Provider Nurse Practitioner
DX: J18.9 Pneumonia, unspecified organism (principal)
CPT/HCPCS: 71046

== ENCOUNTER 2022-11-26 09:02 | Emergency (ER) | payer OTHER, SELFPAY ==
[2022-11-26 09:08] VITALS: BP 153/75; PULSE 68; RESP 18; O2SAT 95
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
[2022-11-26] MEDS: Acetaminophen 325 MG TAB 650 MG PO (10:23)
[2022-11-26] MEDS: Amoxicillin 875/Clav. 125 TAB PO (10:23)
[2022-11-26] MEDS: Rabies Immune Globulin 1,500 UNIT/5 ML VIAL 1306.34 UNITS IM (11:16)
[2022-11-26 11:49] VITALS: BP 168/90; PULSE 64; RESP 16; TEMP 36.4; O2SAT 93
--- NOTE | 2022-11-27 11:06 | NUR.NOTE ---
Faxed animal bite report to [facility] 11/27/22. Nursing Note:
== END 2022-11-26 11:52 | disposition home or self-care (01) ==
PROVIDERS: Emergency Provider Emergency Medicine; PCP Nurse Practitioner
DX: S61.250A Open bite of right index finger without damage to nail, initial encounter; W64.XXXA Exposure to other animate mechanical forces, initial encounter; S51.851A Open bite of right forearm, initial encounter; Z23 Encounter for immunization
CPT/HCPCS: 90471; 96372; 99283; 90675; 99284

== ENCOUNTER 2022-12-03 09:28 | Outpatient (RCR) | payer OTHER, SELFPAY | END 2022-12-03 23:59 | disposition home or self-care (01) | LOC: INF 09:28 | PROVIDERS: PCP Nurse Practitioner; Visit Provider Emergency Medicine | DX: Z20.3 Contact with and (suspected) exposure to rabies (principal) | CPT/HCPCS: 96372; 90675 ==

== ENCOUNTER 2022-12-14 01:33 | Outpatient (RCR) | payer OTHER, SELFPAY | END 2023-01-02 23:59 | disposition home or self-care (01) | LOC: INF 01:33 | PROVIDERS: PCP Nurse Practitioner; Visit Provider Emergency Medicine | DX: Z20.3 Contact with and (suspected) exposure to rabies (principal) | CPT/HCPCS: 96372; 90675 ==

== ENCOUNTER 2023-02-19 19:59 | Emergency (ER) | payer OTHER, SELFPAY ==
[2023-02-19 20:03] VITALS: BP 124/104; PULSE 66; RESP 22; TEMP 36.4; O2SAT 94
--- NOTE | 2023-02-19 20:15 | DI.RAD_ITS ---
Exam(s) XR RIBS RT W PA LAT CHEST EXAM: XR RIBS RT W PA LAT CHEST CLINICAL HISTORY: Fall earlier today right lateral chest wall tender TECHNIQUE: 2D digital imaging was performed. COMPARISON: CR XR CHEST 2V PA LATERAL from 11/12/2022 FINDINGS: RIBS 3 VIEWS- There are no obvious acute rib fractures evident. No lytic rib lesions identified. However, there i s a wedge compression fracture of a lower thoracic vertebra noted which is not a new finding and was evident on lateral chest x-ray of November 2022. CXR- 2 VIEWS: No infiltrates nor pleural effusions. No pneumothorax. Heart size is normal and there is no significant mediastinal widening. IMPRESSION: 1. No obvious rib fractures evident. Also no significant rib lesions. 2. No ipsilateral lung nor pleural abnormality evident. No pneumothorax. Nonacute compression fracture of lower thoracic vertebra which appears unchanged from 11/12/2022. DATA REPOSITORY: RADIATION DOSE DELIVERED:
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
--- NOTE | 2023-02-19 22:03 | DI.VRAD_ITS ---
PROCEDURE INFORMATION: Exam: XR Right Ribs Exam date and time: 02/19/2023 8:46 PM Age: 72 years old Clinical indication: Pain / injury; Fall; Blunt trauma; Chest wall pain and right-sided rib area TECHNIQUE: Imaging protocol: Radiologic exam of the right ribs. Views: 2 views. COMPARISON: CR XR CHEST 2V PA LATERAL 11/12/2022 2:40 PM FINDINGS: Bones/joints: No acute fracture. Compared to a prior CT chest dated 02/24/2022, old moderate compression fracture T10 and old mild loss of height of T12. Pleural space: No pneumothorax or pleural fluid collection. Soft tissues: Normal. IMPRESSION: 1. No acute fracture. 2. Compared to a prior CT chest dated 02/24/2022, old moderate compression fracture T10 and old mild loss of height of T12. 3. No pneumothorax or pleural fluid collection. PROCEDURE INFORMATION: Exam: XR Chest Exam date and time: 02/19/2023 8:46 PM Age: 72 years old Clinical indication: Pain / injury; Fall; Blunt trauma; Chest wall pain and right-sided rib area TECHNIQUE: Imaging protocol: Radiologic exam of the chest. Views: 2 views. COMPARISON: CR XR CHEST 2V PA LATERAL 11/12/2022 2:40 PM; CT chest 02/24/2022 FINDINGS: Lungs: No consolidation. Pleural spaces: No pneumothorax or pleural fluid collection. Heart/Mediastinum: No cardiomegaly. Bones/joints: No acute fracture. Compared to a prior CT chest dated 02/24/2022, old moderate compression fracture T10 and old mild loss of height of T12. IMPRESSION: 1. No acute fracture. 2. Compared to a prior CT chest dated 02/24/2022, old moderate compression fracture T10 and old mild loss of height of T12. 3. No pneumothorax or pleural fluid collection. Dictated and Authenticated by: Herbert Parkinson MD. Ordering:RONALD Fox MD
[2023-02-19 22:04] VITALS: PULSE 85; RESP 16; O2SAT 99
== END 2023-02-19 21:05 | disposition home or self-care (01) ==
PROVIDERS: Emergency Provider Emergency Medicine; PCP Nurse Practitioner
DX: S20.211A Contusion of right front wall of thorax, initial encounter (principal); W19.XXXA Unspecified fall, initial encounter
CPT/HCPCS: 99283; 71046; 71100

== ENCOUNTER 2023-03-03 12:36 | Emergency (ER) | payer OTHER, SELFPAY ==
[2023-03-03 12:42] VITALS: BP 114/63; PULSE 75; RESP 18; TEMP 36.8; O2SAT 99
--- NOTE | 2023-03-03 14:50 | DI.CT_ITS ---
Exam(s) CT CHEST WO EXAM: CT CHEST WO CLINICAL HISTORY: right chest pain, fall 2 weeks ago, worsening pain. TECHNIQUE: Imaging protocol: Axial computed tomography images were obtained and coronal and sagittal reformatted images were created and reviewed. CONTRAST MATERIAL: Noncontrast COMPARISON: CT CT CHEST LUNG CANCER SCREEN from 02/24/[address] CHEST WO from 08/13/[address] ABDOMEN PELVIS W from 09/10/2022 CR XR CHEST 2V PA LATERAL from 11/12/2022 CR,XR XR RIBS RT W PA LAT CHEST from 02/19/2023 FINDINGS: Pulmonary parenchyma: No consolidation. Scarring right middle lobe.. Stable tiny nodule right upper lobe. Nodule seen on the 24 February 2022 exam in the left upper lobe is not seen on the current exam. Emphysema: Moderate diffuse emphysematous changes. Tracheobronchial tree: No mucous plugging. No bronchiectasis . Interstitial changes: None. Pleura: No effusion or pneumothorax. Heart: The heart is mildly dilated. The coronary arteries show minimalcalcifications. Aorta: Thoracic aorta non-dilated. Mildatherosclerotic changes. Lymph nodes: No enlarged lymph nodes. Bones: Degenerative changes are seen. Stable lower thoracic compression fractures. Old right lowe r rib fractures. No acute rib fractures visualized. Upper abdomen: Unremarkable. IMPRESSION: No acute abnormality. RADIATION DOSE DELIVERED: 415.34mGy.cm Total DLP 415.34mGy.cm Total DLP DATA REPOSITORY: All CT scans at this facility are submitted to the National Radiology Data Registry (NRDR) Dose Index Registry (DIR) with the [employer] (ACR). RADIATION OPTIMIZATION: All CT scans at this facility use at least one of these dose optimization te chniques: automated exposure control; mA and/or kV adjustment per patient size (includes targeted exa ms where dose is matched to clinical indication); or iterative reconstruction.
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
== END 2023-03-03 15:45 | disposition home or self-care (01) ==
PROVIDERS: Emergency Provider Physician Assistant; PCP Nurse Practitioner
DX: S20.211A Contusion of right front wall of thorax, initial encounter (principal); W19.XXXA Unspecified fall, initial encounter
CPT/HCPCS: 71250; 99284

== ENCOUNTER 2023-03-30 10:54 | Outpatient (CLI) | payer OTHER, SELFPAY ==
[2023-03-30 11:12] VITALS: BP 103/66; PULSE 72; RESP 20; TEMP 36.7; O2SAT 100
[2023-03-30] MEDS: Dexamethasone Sod. Phos./Pres-Free 10 MG/ML VIAL IJ (11:41)
[2023-03-30] MEDS: Lidocaine 2% Pres-Free 5 ML VIAL IJ (11:42)
[2023-03-30] MEDS: Omnipaque 240 MG/ML 50 ML BTL IJ (11:42)
[2023-03-30 11:55] VITALS: BP 115/73; PULSE 75; RESP 30; O2SAT 92
--- NOTE | 2023-03-30 12:01 | DI.RAD_ITS ---
Exam(s) XR PAIN CLINIC THORACIC SP 2V EXAM: XR PAIN CLINIC THORACIC SP 2V CLINICAL HISTORY: Dx: Intercostal neuralgia TECHNIQUE: 2D and realtime digital imaging was performed. CONTRAST MATERIAL: Refer to procedure report. COMPARISON: No exams were available for comparison FINDINGS: Fluoroscopy was provided for Dr. Goldstein during the performance of a treatment for pain management. Pl ease refer to the procedure report for complete details. Ka,r=11.7 mGy IMPRESSION: RADIATION DOSE DELIVERED:
--- NOTE | 2023-03-30 15:59 | PDOC.PAIN_ITS ---
Date of service: 03/30/23 Time of Service: 12:00 Pain Managment Procedure Note Procedure Note Procedure Note: Procedure Note Right 8th and 9th intercostal nerve blocks Date of Service: March 30, 2023 Patient:Destini De La Torre? Provider:? Sergey Wilson DO, MPH Destini has been referred to the [facility] for right sided intercostal nerve blocks.? Pre-operative diagnosis: Right intercostal neuralgia Post-operative diagnosis: Same Pre-procedure pain: VAS= 2/10 Comments: I previously evaluated her in the clinic. She had a chest tube placed on the right and has had pain in that area since. Destini was interviewed and the medical record was reviewed.? There were no medical, pharmacologic, radiographic or other structural contraindications to attempting fluoroscopically guided intercostal nerve blocks.? Risks, potential side effects, indications, and potential benefits of the procedure were reviewed with Destini.? Questions and concerns were addressed.? After it was clear that the patient was fully informed about the procedure, the printed consent form was signed by the patient and myself.? Destini was placed in the prone position on the fluoroscopy table and automated blood pressure cuff as well as pulse oximeter was applied. A standard time-out procedure was performed. The ribs (8th and 9th) associated with the chest tube scar were identified and traced back to midline. I chose to start with the 8th intercostal nerve. The skin entry point for approaching the 8th rib at 5 cm lateral of the proximal rib was identified under fluoroscopy and marked.? The skin entry point was thoroughly cleaned with Chlorhexadine preparation and the skin was draped.? Next a mixture of 2 mls of 1% lidocaine was infiltrated into the area of the planned skin entry point and underlying subcutaneous tissues.? Next the 1.5 25G skin needle was placed under fluoroscopic guidance down to os.? The needle was then walked down the rib and under the lower portion of the rib. I then injected Omnipaque which highlighted the track of the nerve. Next, a solution of 7.5 mg of preservative-free Dexamethasone (10 mg/cc) was injected. This was followed with 3 ml of preservative-free 1% Lidocaine. No unusual discomfort was expressed by Destini. The needle was withdrawn without difficulty. This did not relieve all of her pain and the procedure was repeated at the 9th Intercostal nerve. After 5 minutes, the patient was pain-free (48 mls of Omnipaque and 5 mg of Dexamethasone was wasted) Destini was observed and was without hemodynamic, neurologic, or allergic reactions.? Fluoroscopic images were digitally archived. Destini's vital signs were stable throughout the procedure and were as recorded in the doc flowsheet by the nursing staff.? If given, dosages of intravenous drugs for anxiolysis and analgesia were documented in MAR. Follow up plans and appointments were discussed with Destini.? Post procedure instruction was given as documented in nursing documentation and having met discharge criteria, [facility] ? COMMENTS: No apparent complications. Post-procedure pain: VAS= 0/10. Destini to contact [facility] as needed. If at least 50% improvement in pain and/or function for at least 3 months is achieved, this procedure can be repeated. I personally completed the entire procedure. SERGEY WILSON DO, MPH ABPMR-subspecialty board certification in Pain Medicine [facility] [facility]
== END 2023-03-30 10:55 | disposition home or self-care (01) ==
PROVIDERS: PCP Nurse Practitioner; Visit Provider Preventive Medicine Occupational Medicine
DX: G58.0 Intercostal neuropathy (principal); R07.89 Other chest pain
CPT/HCPCS: 64420; 64421; 72070; Q9967

== ENCOUNTER 2023-04-12 14:42 | Emergency (ER) | payer OTHER, SELFPAY ==
[2023-04-12 14:44] VITALS: BP 121/67; PULSE 78; RESP 16; TEMP 36.6; O2SAT 91
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
[2023-04-12] MEDS: Ondansetron O.D.T. 4 MG TABEF PO (15:14)
== END 2023-04-12 15:18 | disposition home or self-care (01) ==
PROVIDERS: Emergency Provider Registered Nurse Emergency; PCP Nurse Practitioner
DX: T16.2XXA Foreign body in left ear, initial encounter (principal); Z87.891 Personal history of nicotine dependence
CPT/HCPCS: 99282

== ENCOUNTER 2023-04-19 11:11 | Outpatient (REF) | payer OTHER, SELFPAY ==
[2023-04-19 21:29] LABS: AST 19 U/L (15-37); Albumin 3.5 g/dL (3.4-5.0); Alkaline Phosphatase 90 U/L (46-116); Anion Gap 8.7 mmol/L (3-11); BUN 12 mg/dL (7-18); Bilirubin, Total 0.3 mg/dL (0.2-1.0); CO2 30.3 mmol/L (21.0-32.0); CREATININE 0.8 mg/dL (0.55-1.02); Calcium 9.3 mg/dL (8.5-10.1); Chloride 105 mmol/L (98-107); Estimated GFR 78.24 (mL/min/1.73m2); Glucose 87 mg/dL (74-106); Potassium 4.8 mmol/L (3.5-5.1); Sodium 144 mmol/L (136-145); TSH (W/Ref FT4) 1.18 uIU/mL (0.36-3.74); Total Protein 7.3 g/dL (6.4-8.2)
[2023-04-19 21:44] LABS: ALT 17 U/L (14-59)
== END 2023-04-19 11:12 | disposition home or self-care (01) ==
LOC: LBN 11:11
PROVIDERS: PCP Nurse Practitioner; Visit Provider Nurse Practitioner
DX: R60.0 Localized edema (principal); N39.0 Urinary tract infection, site not specified; K21.9 Gastro-esophageal reflux disease without esophagitis; F32.89 Other specified depressive episodes
CPT/HCPCS: 80053; 87077; 84443; 87086; 87186

== ENCOUNTER → 2023-08-18 01:14 | Outpatient (CLI) | payer OTHER, SELFPAY ==
--- NOTE | 2023-08-18 16:00 | DI.RAD_ITS ---
Exam(s) XR HIP RT COMPLETE AP PELVIS EXAM: XR HIP RT COMPLETE AP PELVIS CLINICAL HISTORY: pain, rt hip pain, M25.551. TECHNIQUE: 2D digital imaging was performed. Two views COMPARISON: CR XR HIP LT COMPLETE AP PELVIS from 09/26/2020 FINDINGS: BONES: No acute fracture is present. No bony destructive lesion is seen. JOINTS: No dislocation present. No change in left hip prosthesis. Left hip joint space is maintain ed. Periarticular spurring present. Mild spurring at the SI joints. Advanced degenerative changes of L5-S1. SOFT TISSUE: Normal. IMPRESSION: No acute abnormality. Mild degenerative changes of the right hip. DATA REPOSITORY: RADIATION DOSE DELIVERED:
[2023-08-18 16:33] LABS: Iron 19 ug/dL (50-170)
[2023-08-18 16:39] LABS: Ferritin 149 ng/mL (8-252); Magnesium 1.7 mg/dL (1.8-2.4)
[2023-08-18 16:46] LABS: Vitamin D 25 Total 37.1 ng/mL (30-100)
== END ==
PROVIDERS: PCP Nurse Practitioner; Referring Provider Nurse Practitioner; Visit Provider Nurse Practitioner
DX: E55.9 Vitamin D deficiency, unspecified (principal); G25.81 Restless legs syndrome; R29.898 Other symptoms and signs involving the musculoskeletal system; Z86.2 Personal history of diseases of the blood and blood-forming organs and certain disorders involving the immune mechanism
CPT/HCPCS: 36415; 82306; 73502; 82728; 83540; 83735

== ENCOUNTER 2023-10-10 15:01 | Outpatient (REF) | payer OTHER, SELFPAY | END 2023-10-10 15:02 | disposition home or self-care (01) | LOC: LBN 15:01 | PROVIDERS: PCP Nurse Practitioner; Visit Provider Obstetrics & Gynecology Gynecology | DX: R30.0 Dysuria (principal) | CPT/HCPCS: 87077; 87086; 87186 ==

== ENCOUNTER → 2023-10-31 13:43 | Outpatient (BNVA) | payer OTHER, SELFPAY | PROVIDERS: PCP Nurse Practitioner; Referring Provider Nurse Practitioner; Visit Provider Student in an Organized Health Care Education/Training Program | DX: M16.11 Unilateral primary osteoarthritis, right hip (principal); M70.61 Trochanteric bursitis, right hip; M70.62 Trochanteric bursitis, left hip; M54.16 Radiculopathy, lumbar region; M48.062 Spinal stenosis, lumbar region with neurogenic claudication; M47.817 Spondylosis without myelopathy or radiculopathy, lumbosacral region | CPT/HCPCS: 20610; J1040 ==

== ENCOUNTER → 2023-11-17 02:35 | Outpatient (CLI) | payer OTHER, SELFPAY ==
--- NOTE | 2023-11-17 13:03 | DI.MRI_ITS ---
Exam(s) MR LUMBAR SPINE WO EXAM: MR LUMBAR SPINE WO CLINICAL HISTORY: pain,lumbar radiculopathy,m54.16. TECHNIQUE: Multiplanar multisequence MRI of the Lumbar spine was performed. COMPARISON: MR MRI - LUMBAR SPINE WO CONTRAST from 02/03/2015 CR XR LUMBAR SPINE COMPLETE from 01/27/2022 FINDINGS: Conus medullaris is at normal level. There is no evidence of conus mass nor subjacent clumping of in trathecal nerve roots to suggest arachnoiditis. The distal thecal sac appears unremarkable.There is no evidence of Tarlov intrasacral cysts nor other significant findings within the sacral canal Bones:There are no acute fractures nor ominous osseous lesions in the lumbar vertebral bodies and vis ualized sacrum. Unchanged mild T12 compression fracture again noted. This exhibits no further heigh t loss when compared to 2014. With respect to the individual levels... T12-L1: Unremarkable L1-2: This level exhibits mild disc height loss and mild degenerative retrolisthesis of L1 upon L2 wh ich is unchanged 2014. Posteriorly there is annular bulging without a distinct disc herniation centra l canal dimensions are lower normal. There is lateral right-sided annular bulging but no significant foraminal stenosis.Mild facet joint degenerative changes. L2-3: This level exhibits minimal decreased disc height. Annular bulging is noted bilaterally at thi s level. There is no distinct disc herniation or central canal stenosis. Annular bulging extends in to the floor of the exiting neural foramina bilaterally but there is no evidence of significant les inal stenosis. Facet joints at this level exhibit mild degenerative changes. L3-4: This level exhibits normal disc height. Lateral left osteophytes noted there is broad relative ly symmetrical annular bulging at this level which results in mild central spinal canal stenosis, sim ilar to the 2015 study. On the present study there is again noted annular bulging into the floor of both exiting neural foramina but with minimal if any significant foraminal stenosis evident. Mild de generative changes both facet joints. L4-5: This level exhibits preserved disc height. There is symmetrical annular bulging at this level again noted. There is mild central canal stenosis which is related to the broad annular bulging and short AP dimensions of the pedicles, similar to previous. Annular bulging extends into the floor of the exiting neural foramina bilaterally. There is mild left-sided foraminal stenosis, slightly more so than previous. L5-S1: Normal disc height. Mild annular bulging. No disc herniation. Central canal dimensions lowe r normal. No foraminal stenosis on the left side. There is mild-moderate foraminal stenosis on the right side due to slightly more prominent facet arthropathy on the right side. Soft tissues: There is a mild fusiform abdominal aortic aneurysm above the aortic bifurcation which exhibits maximum diameter of 2 cm, unchanged from 2015, best appreciated on the coronal images. Ther e is no significant arterial megaly evident in the visualized common iliac arteries. IMPRESSION: 1. Mild multilevel findings as described above with minimal change from 2015. 2. There are no new significant disc herniations. Mild central canal stenosis at L3-4 and L4-5 level s. 3. Mild asymmetric foraminal stenosis as discussed individually above. DATA REPOSITORY:
== END ==
PROVIDERS: PCP Nurse Practitioner; Visit Provider Student in an Organized Health Care Education/Training Program
DX: M48.061 Spinal stenosis, lumbar region without neurogenic claudication (principal)
CPT/HCPCS: 72148

== ENCOUNTER → 2023-11-24 14:16 | Outpatient (BNVA) | payer OTHER, SELFPAY | PROVIDERS: PCP Nurse Practitioner; Referring Provider Nurse Practitioner; Visit Provider Student in an Organized Health Care Education/Training Program | DX: M16.11 Unilateral primary osteoarthritis, right hip (principal) | CPT/HCPCS: 20611; J1040 ==

== ENCOUNTER 2024-01-13 16:09 | Outpatient (CLI) | payer OTHER, SELFPAY ==
[2024-01-13 16:21] LABS: Abs Immature Grans 0.03 10^3/uL (0.0-0.06); Absolute Basophil Count 0.02 10^3/uL (0.0-0.2); Absolute Eosinophil Count 0.15 10^3/uL (0.0-0.7); Absolute Lymphocyte Count 1.82 10^3/uL (1.2-3.4); Absolute Neutrophil Count 4.19 10^3/uL (1.2-6.7); Basophils % 0.3 %; Eosinophils % 2.2 %; HCT 39.5 % (36.0-46.0); HGB 12.7 g/dL (11.2-15.7); Immature Grans % 0.4 %; Lymphocytes % 26.7 %; MCH 31.9 pg (27.0-33.0); MCHC 32.2 % (32.0-36.0); MCV 99 fL (80-95); MPV 9.5 fL (8.0-11.0); Monocytes % 8.8 %; Neutrophils % 61.6 %; Platelet Count 238 10^3/uL (130-400); RBC 3.98 10^6/uL (3.93-5.22); RDW 13.2 % (11.7-14.6); RDW-SD 48.9 fL; WBC 6.81 10^3/uL (4.4-10.8)
[2024-01-13 16:23] LABS: ESR 6 mm/hr (0-30)
[2024-01-13 17:18] LABS: ALT 18 U/L (14-59); AST 15 U/L (15-37); Albumin 3.7 g/dL (3.4-5.0); Alkaline Phosphatase 76 U/L (46-116); Anion Gap 4.7 mmol/L (3-11); BUN 12 mg/dL (7-18); Bilirubin, Total 0.2 mg/dL (0.2-1.0); CO2 34.3 mmol/L (21.0-32.0); CREATININE 0.8 mg/dL (0.55-1.02); Calcium 8.8 mg/dL (8.5-10.1); Chloride 105 mmol/L (98-107); Estimated GFR 77.75 (mL/min/1.73m2); Glucose 98 mg/dL (74-106); Potassium 3.7 mmol/L (3.5-5.1); Sodium 144 mmol/L (136-145); TSH (W/Ref FT4) 1.87 uIU/mL (0.36-3.74); Total Protein 7.3 g/dL (6.4-8.2)
[2024-01-13 17:25] LABS: C-Reactive Protein < 0.50 mg/dL (<or=0.5)
[2024-01-16 11:48] LABS: Lyme Ab w Rflx to Lyme Confirm Negative (Negative)
[2024-01-18 01:05] LABS: Anaplasma phagocytophilum Negative (Negative); B. miyamotoi PCR Negative (Negative); Babesia divergens/MO-1 Negative (Negative); Babesia duncani Negative (Negative); Babesia microti Negative (Negative); Ehrlichia chaffeensis Negative (Negative); Ehrlichia ewingii/canis Negative (Negative); Ehrlichia muris eauclairensis Negative (Negative)
== END 2024-01-13 16:10 | disposition home or self-care (01) ==
LOC: LBO 16:09
PROVIDERS: PCP Nurse Practitioner; Visit Provider Family Medicine
DX: R51.9 Headache, unspecified (principal); R53.83 Other fatigue
CPT/HCPCS: 36415; 80053; 85652; 87798; 84443; 85025; 86140; 86618

== ENCOUNTER 2024-01-24 14:24 | Outpatient (REF) | payer OTHER, SELFPAY | END 2024-01-24 14:25 | disposition home or self-care (01) | LOC: LBN 14:24 | PROVIDERS: PCP Nurse Practitioner; Visit Provider Obstetrics & Gynecology Gynecology | DX: K52.9 Noninfective gastroenteritis and colitis, unspecified (principal) | CPT/HCPCS: 87046 ==

== ENCOUNTER 2024-01-28 13:07 | Emergency (ER) | payer OTHER, SELFPAY ==
[2024-01-28] VITALS (7 sets, daily range): BP systolic 121–145; BP diastolic 66–87; PULSE 68–81; RESP 13–20; TEMP 36.7; O2SAT 87–96
--- NOTE | 2024-01-28 13:15 | DI.RAD_ITS ---
Exam(s) XR RIBS LT W PA LAT CHEST EXAM: XR RIBS LT W PA LAT CHEST CLINICAL HISTORY: left chest wall pain, felt pop. COMPARISON: CR,XR XR RIBS RT W PA LAT CHEST from 02/19/[address] CHEST WO from 03/03/2023 TECHNIQUE: Two views of the left ribs were performed. PA and lateral views of the chest. FINDINGS: LUNGS: Clear. No pneumothorax is seen. No infiltrate or effusion. HEART: Normal in size. Aorta mildly tortuous. BONES: A BB marker was placed over the area the patient's pain. There is slight deformity of the ant erior left 6th rib. The lower ribs are not well seen. No bony destructive lesion is seen. Stable m oderate compression fracture of T 10. Stable mild compression fracture of T12. No new compression f ractures. A BB marker IMPRESSION: Slight deformity of the anterior left 6 rib, fracture of indeterminate age. No pneumothorax. Lungs are clear. Stable lower thoracic compression fractures.
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
[2024-01-28] MEDS: Lidocaine 5% Patch 1 PATCH TP (13:35)
--- NOTE | 2024-01-28 14:16 | DI.VRAD_ITS ---
PROCEDURE INFORMATION: Exam: XR Left Ribs with PA Chest Exam date and time: 01/28/2024 1:47 PM Age: 73 years old Clinical indication: Chest wall pain; Left; Patient HX: Bb marker used to indicate area of pain TECHNIQUE: Imaging protocol: Radiologic exam of the left ribs with PA chest. Views: 3 views COMPARISON: CT CHEST WO 03/03/2023 14:44 FINDINGS: Lungs: No focal consolidation. Pleural spaces: Unremarkable. No pleural effusion. No pneumothorax. Heart/Mediastinum: Unremarkable. No cardiomegaly. Vasculature: Atherosclerotic disease. Bones/joints: Deformity of the 6th anterior left rib. A BB overlies the mid space between the anterior 6th and 7th rib. Multilevel degenerative changes of the spine. Compression deformity of a lower thoracic vertebra. Kyphosis. IMPRESSION: 1. Deformity of the anterior 6th left rib consistent with age indeterminate fracture. 2. No acute cardiopulmonary disease. 3. Multilevel degenerative changes of the spine with compression deformity of a lower thoracic vertebra. Dictated and Authenticated by: Ailyn Amador MD. Ordering:DARIO Castañeda MD
[2024-01-28] MEDS: Ketorolac 15 MG/ML VIAL IM (15:22)
== END 2024-01-28 15:29 | disposition home or self-care (01) ==
PROVIDERS: Emergency Provider Student in an Organized Health Care Education/Training Program; PCP Nurse Practitioner
DX: S22.32XA Fracture of one rib, left side, initial encounter for closed fracture (principal); J44.9 Chronic obstructive pulmonary disease, unspecified; Z86.718 Personal history of other venous thrombosis and embolism; X50.0XXA Overexertion from strenuous movement or load, initial encounter; Y93.H2 Activity, gardening and landscaping; Y92.017 Garden or yard in single-family (private) house as the place of occurrence of the external cause
CPT/HCPCS: 99283; 71046; 71100; J1885

== ENCOUNTER 2024-02-09 11:00 | Outpatient (CLI) | payer OTHER, SELFPAY ==
[2024-02-09 11:15] VITALS: BP 105/93; PULSE 67; RESP 20; TEMP 36.5; O2SAT 94
--- NOTE | 2024-02-09 11:48 | DI.RAD_ITS ---
Exam(s) XR PAIN CLINIC LUMBAR SP 2V EXAM: XR PAIN CLINIC LUMBAR SP 2V CLINICAL HISTORY: DX: Lumbar Radiculopathy TECHNIQUE: 2D and realtime digital imaging was performed. Radiologist not present. CONTRAST MATERIAL: None. COMPARISON: No exams were available for comparison FINDINGS: Fluoroscopy was provided for pain management therapy. Please refer to procedure report or details. Radiation Exposure Index: Ka,r=5.08 mGy IMPRESSION: As above. RADIATION DOSE DELIVERED:
--- NOTE | 2024-02-09 11:48 | PDOC.PAIN_ITS ---
Date of service: 02/09/24 Time of Service: 11:48 Pain Managment Procedure Note Procedure Note Procedure Note: PROCEDURE NOTE LUMBAR EPIDURAL STEROID INJECTION Date of Service: February 09, 2024 Patient:Destini Nogueira? Provider: Sergey Goldstein DO, MPH Destini Dubois has been referred to the [facility] for a lumbar epidural steroid injection. Pre-operative diagnosis: Lumbosacral Radiculopathy Post-operative diagnosis: Same Pre-Procedure Pain: VAS= 8 /10 Comments: I previously evaluated her in the office. Her symptoms are unchanged. Destini was interviewed and the medical record was reviewed.? There were no medical, pharmacologic, radiographic or other structural contraindications to attempting fluoroscopically guided Lumbar epidural steroid injection.? Risks, potential side effects, indications, and potential benefits of the procedure were reviewed with Destini.? Questions and concerns were addressed.? After it was clear that Destini was fully informed about the procedure, the printed consent form was signed by the patient and myself.? Destini was placed in the prone position on the fluoroscopy table and automated blood pressure cuff and pulse oximeter applied. The skin entry point for entering/approaching the epidural space for the lumbar epidural steroid injection was marked. Following thorough chlorhexadine preparation of the skin and draping and 1% lidocaine infiltration of the skin entry point and subcutaneous tissues, an 18 gauge Touhy needle was placed and advanced under fluoroscopic guidance and with loss of resistance technique into the L5-S1 epidural space. Needle tip placement and depth were aided and confirmed by fluoroscopy. There was no paresthesia or return of blood or CSF through the needle. 1 mls of Omnipaque 240 was injected with clear epidural spread confirmed with fluoroscopy. 80 mg of Depo-Medrol was? injected. This was followed by 1 ml of preservative-free normal saline to flush the steroid out of the needle. There was no unusual discomfort expressed by Destini. The needle was withdrawn without difficulty. (49 mls of Omnipaque was wasted) Destini was observed and was without hemodynamic, neurologic, or allergic reactions.? Fluoroscopic images were digitally archived. Destini's vital signs were stable throughout the procedure and were as recorded in nursing records. Follow up plans and appointments were discussed with Destini. Post procedure instruction was given as documented in nursing records and having met discharge criteria Destini was discharged from the [facility]. COMMENTS: No apparent complications. Post-procedure pain: VAS= 3/10. Destini to contact [facility] as needed. If at least 50% improvement in pain and/or function for at least 3 months is achieved, this procedure can be repeated. I personally performed this entire procedure. SERGEY GOLDSTEIN DO, MPH ABPMR-subspecialty board certification in Pain Medicine [facility]
[2024-02-09 11:52] VITALS: BP 149/84; PULSE 67; RESP 26; O2SAT 94
[2024-02-09] MEDS: Epidural Tray 1 EACH MC (11:53)
[2024-02-09] MEDS: Omnipaque 240 MG/ML 50 ML BTL IJ (11:53)
[2024-02-09] MEDS: methylPREDNISolone ACETATE 80 MG/ML VIAL IJ (11:53)
== END 2024-02-09 11:01 | disposition home or self-care (01) ==
LOC: PC 11:00
PROVIDERS: PCP Nurse Practitioner; Visit Provider Preventive Medicine Occupational Medicine
DX: M54.50 Low back pain, unspecified (principal); M54.17 Radiculopathy, lumbosacral region
CPT/HCPCS: 62323; 72100; J1010; Q9967

== ENCOUNTER → 2024-03-01 09:07 | Outpatient (BNVA) | payer OTHER, SELFPAY | PROVIDERS: PCP Nurse Practitioner; Referring Provider Nurse Practitioner; Visit Provider Physician Assistant Surgical | DX: J44.9 Chronic obstructive pulmonary disease, unspecified (principal); R53.83 Other fatigue; K52.9 Noninfective gastroenteritis and colitis, unspecified; R91.1 Solitary pulmonary nodule; R11.2 Nausea with vomiting, unspecified; Z87.891 Personal history of nicotine dependence | CPT/HCPCS: 36415; 99214 ==

== ENCOUNTER 2024-03-01 14:01 | Outpatient (REF) | payer OTHER, SELFPAY ==
[2024-03-01 13:16] LABS: Abs Immature Grans 0.02 10^3/uL (0.0-0.06); Absolute Basophil Count 0.03 10^3/uL (0.0-0.2); Absolute Eosinophil Count 0.21 10^3/uL (0.0-0.7); Absolute Lymphocyte Count 1.13 10^3/uL (1.2-3.4); Absolute Monocyte Count 0.76 10^3/uL (0.1-0.8); Absolute Neutrophil Count 5.22 10^3/uL (1.2-6.7); Basophils % 0.4 %; Eosinophils % 2.8 %; HCT 38.3 % (36.0-46.0); HGB 12.2 g/dL (11.2-15.7); Immature Grans % 0.3 %; Lymphocytes % 15.3 %; MCH 32.1 pg (27.0-33.0); MCHC 31.9 % (32.0-36.0); MCV 101 fL (80-95); MPV 10.1 fL (8.0-11.0); Monocytes % 10.3 %; Neutrophils % 70.9 %; Platelet Count 232 10^3/uL (130-400); RDW 12.9 % (11.7-14.6); RDW-SD 48.2 fL; WBC 7.37 10^3/uL (4.4-10.8)
[2024-03-01 13:42] LABS: ALT 24 U/L (14-59); AST 23 U/L (15-37); Albumin 3.8 g/dL (3.4-5.0); Alkaline Phosphatase 66 U/L (46-116); Anion Gap 4.2 mmol/L (3-11); BUN 15 mg/dL (7-18); Bilirubin, Total 0.34 mg/dL (0.2-1.0); CO2 33.8 mmol/L (21.0-32.0); CREATININE 0.7 mg/dL (0.55-1.02); Calcium 9.6 mg/dL (8.5-10.1); Chloride 105 mmol/L (98-107); Estimated GFR 91.26 (mL/min/1.73m2); Glucose 98 mg/dL (74-106); Potassium 3.8 mmol/L (3.5-5.1); Sodium 143 mmol/L (136-145); Total Protein 7.1 g/dL (6.4-8.2); Vitamin D 25 Total 38.9 ng/mL (30-100)
== END 2024-03-01 14:02 | disposition home or self-care (01) ==
LOC: LBN 14:01
PROVIDERS: PCP Nurse Practitioner; Visit Provider Physician Assistant Surgical
DX: R53.83 Other fatigue (principal); J44.9 Chronic obstructive pulmonary disease, unspecified; K52.9 Noninfective gastroenteritis and colitis, unspecified; E55.9 Vitamin D deficiency, unspecified
CPT/HCPCS: 80053; 82306; 85025

== ENCOUNTER → 2024-03-27 08:04 | Outpatient (BNVA) | payer OTHER, SELFPAY | PROVIDERS: PCP Nurse Practitioner; Referring Provider Nurse Practitioner; Visit Provider Internal Medicine Critical Care Medicine | DX: J44.9 Chronic obstructive pulmonary disease, unspecified (principal); R91.1 Solitary pulmonary nodule; J20.9 Acute bronchitis, unspecified | CPT/HCPCS: 99214 ==

== ENCOUNTER → 2024-03-27 09:51 | Outpatient (CLI) | payer OTHER, SELFPAY ==
--- NOTE | 2024-03-27 09:51 | DI.RAD_ITS ---
Exam(s) XR CHEST 2V PA LATERAL EXAM: XR CHEST 2V PA LATERAL CLINICAL HISTORY: J20.9 acute bronchitis TECHNIQUE: 2D digital imaging was performed of the chest. Two images were obtained. PA and lateral views were obtained. COMPARISON: CR XR CHEST 2V PA LATERAL from 11/12/2022 CR,XR XR RIBS LT W PA LAT CHEST from 01/28/2024 FINDINGS: MEDIASTINUM: Normal. HEART: Normal. PULMONARY VASCULATURE: There is atherosclerotic calcification and mild tortuosity of the thoracic aor ta. LUNGS: No bronchial wall thickening is seen. No focal infiltrates are seen in the lungs. PLEURAL SPACE: No pleural effusion or pneumothorax. BONE:Within normal limits for the patient's age. Old lower thoracic compression fracture deformity. There is again seen exaggeration of the thoracic kyphosis. OTHER FINDINGS:Normal. IMPRESSION: No acute pulmonary findings. DATA REPOSITORY: RADIATION DOSE DELIVERED:
== END ==
PROVIDERS: PCP Nurse Practitioner; Visit Provider Internal Medicine Critical Care Medicine
DX: J20.9 Acute bronchitis, unspecified (principal)
CPT/HCPCS: 71046

== ENCOUNTER → 2024-04-12 15:11 | Outpatient (BNVA) | payer OTHER, SELFPAY | PROVIDERS: PCP Nurse Practitioner; Referring Provider Nurse Practitioner; Visit Provider Internal Medicine Critical Care Medicine | DX: J44.9 Chronic obstructive pulmonary disease, unspecified (principal); R91.1 Solitary pulmonary nodule | CPT/HCPCS: 94664; 99214 ==

== ENCOUNTER 2024-04-23 02:50 | Outpatient (CLI) | payer OTHER, SELFPAY ==
--- NOTE | 2024-04-23 05:30 | DI.CT_ITS ---
Exam(s) CT CHEST/ABD/PEL W EXAM: CT CHEST/ABD/PEL W CLINICAL HISTORY: ? SBO,f/u lung nodule,copd,freq stools, nausea,vomiting,r11.2,k52.9. TECHNIQUE: Imaging Protocol: Axial computed tomography images with coronal and sagittal reformatted images were created and reviewed CONTRAST MATERIAL: Intravenous: Omnipaque 350 Contrast volume:100 ml Oral: yes / no COMPARISON: CT CT CHEST WO from 03/03/2023 MR MR LUMBAR SPINE WO from 11/17/2023 FINDINGS: CHEST: Tracheobronchial tree: Patent. Pulmonary parenchyma: No consolidation or dominant measurable mass. Minimal scarring right middle lo be. Mild biapical scarring, right greater than left. Mild emphysematous changes. No suspicious pul monary nodules. Pleura: No effusion or pneumothorax. Mediastinum: Within normal limits. Aorta: Thoracic portion non-dilated. Pulmonary arteries: No visible emboli. Heart: No pericardial effusion. Normal size. Bones: Unremarkable for age. No lytic or blastic lesions.Stable T10 and T12 compression fractures. Soft tissues: Unremarkable. ABDOMEN and PELVIS: Liver: Normal density. No measurable mass. Gallbladder and biliary tract: No evidence of stones or wall thickening. No biliary dilatation. Pancreas: Normal density, no abnormal calcifications or inflammatory process. Spleen: Normal. Kidneys: Normal size, contour and axis. No radiodense stones. No obstructive uropathy. No suspicious masses seen. Adrenal glands: No masses seen. Aorta: Abdominal portion non-dilated. Atherosclerotic changes. Lymph nodes: Within normal limits. Soft tissues: Unremarkable. Bladder: Unremarkable. Partially obscured by artifact from left hip prosthesis. Bowel: No obstruction or bowel wall thickening. Sigmoid diverticulosis. Sigmoid colon partially obscu red by artifact from left hip prosthesis. Large quantity of stool. Small bowel appears normal. Append ix is normal. Peritoneal cavity: No ascites. No focal collection. No mesenteric inflammatory response. No free ai r. Bones: Left hip prosthesis. Degenerative changes lumbar spine. Reproductive organs: Within normal limits. IMPRESSION: No acute abnormality in the chest, abdomen or pelvis. No suspicious pulmonary nodules. Mild emphysematous changes. Large quantity of stool consistent with constipation. No evidence of obstruction. RADIATION DOSE DELIVERED: Total DLP DATA REPOSITORY: All CT scans at this facility are submitted to the National Radiology Data Registry (NRDR) Dose Index Registry (DIR) with the [employer] (ACR). RADIATION OPTIMIZATION: All CT scans at this facility use at least one of these dose optimization te chniques: automated exposure control; mA and/or kV adjustment per patient size (includes targeted exa ms where dose is matched to clinical indication); or iterative reconstruction.
[2024-04-23] MEDS: Barium Sulfate 2% W/V-Berry Smoothie 450 ML BTL PO ×2 (07:32→07:33)
[2024-04-23 07:47] LABS: CREATININE 0.7 mg/dL (0.55-1.02); Estimated GFR 91.26 (mL/min/1.73m2)
[2024-04-23] MEDS: Normal Saline - Diluent 50 ML VIAL IJ (09:42)
[2024-04-23] MEDS: Omnipaque 350 MG/ML 100 ML BTL IJ (09:43)
== END 2024-04-23 03:10 ==
PROVIDERS: PCP Nurse Practitioner; Visit Provider Physician Assistant Surgical
DX: J44.9 Chronic obstructive pulmonary disease, unspecified (principal); Z87.891 Personal history of nicotine dependence; R91.1 Solitary pulmonary nodule; K52.9 Noninfective gastroenteritis and colitis, unspecified
CPT/HCPCS: 74177; 71260; 82565; J3490

== ENCOUNTER → 2024-05-03 13:27 | Outpatient (BNVA) | payer OTHER, SELFPAY | PROVIDERS: PCP Nurse Practitioner; Referring Provider Nurse Practitioner; Visit Provider Internal Medicine Critical Care Medicine | DX: J44.9 Chronic obstructive pulmonary disease, unspecified (principal); R91.1 Solitary pulmonary nodule; Z87.891 Personal history of nicotine dependence; J96.91 Respiratory failure, unspecified with hypoxia | CPT/HCPCS: 94618; 99213 ==

== ENCOUNTER 2024-05-10 03:49 | Outpatient (CLI) | payer OTHER, SELFPAY ==
[2024-05-10] MEDS: Levalbuterol HFA 15 GM INH 4 PUFF IH (09:56)
[2024-05-10] MEDS: Inhaler, Assist Device 1 EACH MC (09:57)
--- NOTE | 2024-05-11 13:43 | RT.PO.E_ITS ---
Date of service: 05/10/24 Time of Service: 08:15 6 Minute Walk Test Note: 6 Minute Walk Test (6MWT): Ambulatory oximetry report Diagnosis: COPD Conditions of test: Test done at [facility] 05/10/2024 at 1456 hrs. The test was done on room air, then supplemental oxygen at 1-2 L/min. Results: The patient completed 6 minutes of ambulation. Initial SpO2 at baseline was 92% with a pulse of 76.? Respiratory rate was 14/min. Minimum oxygen saturation of 86% and a pulse of 87/min was noted 2 minutes 30 seconds of ambulation, upon which 2 L of oxygen was applied. During a 2-minute recovery, on 2 L of oxygen, saturation improved from 89% to 90%.? Pulse decreased from a maximum of 84/min to 76/min. Distance: 600 feet. Number of stops: 0 Impression: 1. Mild oxygen desaturation to a minimum of 86% at 4 minutes and 30 seconds exercise. and was relieved on 2 LPM O2 The patient does not meet Medicare standards for home supplemental oxygen based on this test alone, for the testing with overnight oximetry on room air or po lysomnography (including a home sleep test with a Type 3 or 4 device) would be necessary to qualify her for supplemental oxygen and/or noninvasive nocturnal ventilation.. Nasir Riley MD [facility] Pulmonary & Critical Care Medicine
--- NOTE | 2024-05-16 08:17 | W.6MWT ---
Date of service: 05/10/24 Time of Service: 08:15 6 Minute Walk Test Note: 6-minute walk test ambulatory oximetry report Indication: COPD The test was done on room air, then supplemental oxygen at 1 to 2 L/min nasal cannula Results: The patient completed 6 minutes of ambulation. Initial SpO2 at baseline was 92%, with a pulse of 76. Respiratory rate was 14/min. Minimum oxygen saturation was 86% and a pulse of 87/min was noted, 2 minutes 30 seconds of ambulation, upon which 2 L of oxygen was applied. During a 2-minute recovery, on 2 L of oxygen, saturation improved from 89% to 90%. Pulse decreased from a maximum of 84/min to 76/min. Distance: 600 feet. Number of stops: 0 Impression: 1. Mild oxygen desaturation to a minimum of 86% at 4 minutes and 30 seconds exercise, and was relieved on 2 L/min oxygen. The patient does not meet Medicare standards for home supplemental oxygen based on this test alone, further testing with overnight oximetry on room air for polysomnography (including a home sleep test with a type III or IV device) would be necessary to qualify her for supplemental oxygen and/or noninvasive nocturnal ventilation.
--- NOTE | 2024-05-17 18:22 | PFT_ITS ---
Date of service: 05/10/24 Time of Service: 15:49 Pulmonary Function Test Result Requesting Provider Meagan Wheeler MD Indications: COPD, former smoker Interpretation Spirometry: Spirometry pre and postbronchodilator show: 1. Very severe airway obstruction at baseline (FEV1 26% predicted), which improved to severe airway obstruction (FEV1 35% predicted) postbronchodilator. This is consistent with advanced COPD with an asthmatic component. 2. Positive response to bronchodilator, with 34% improvement in FEV1. 3. Mildly decreased forced vital capacity after bronchodilator (77% predicted). 4. [employer] comments indicated a good patient effort. The patient used albuterol 1 hour before the test. Lung Volumes: Lung volumes by plethysmography showed: 1. Mildly decreased slow vital capacity at 72% predicted, inspiratory capacity 59% predicted. Patient unable to perform complete lung volume studies. Diffusion Capacity: Severe gas exchange abnormality (35% predicted DLCO), which did not normalize when adjusted for lung volumes (68% predicted DL/VA.) Impression Very severe airway obstruction at baseline, with positive bronchodilator response. Clinical Correlation is recommended.
--- NOTE | 2024-05-17 18:32 | RT.PO.N_ITS ---
Date of service: 05/12/24 Time of Service: 00:29 Nocturnal Oximetry Note: Report: Overnight Oximetry on Room Air without BiPAP. Patient: AYAAN Love 1950 Indication: Very severe COPD Ordering provider: Meagan Wheeler Date of study: May 12, 2024 Conditions of test: Test done by [facility] with pulse oximetry.? Desaturation events were defined as drop in SpO2 by 4% for a minimum duration of 10 seconds. Results: Minimum oxygen saturation (SpO2) was 73% at 0451 hrs. Time spent with SpO2 less than 88% was 171 minutes. The maximum single time with SpO2 less than 88% was 708 seconds at 04 12 hrs. There were several periods of clustered severe oxygen desaturation, which oc curred at 1:30, 2:30, 5:00 AM, and 3:45 AM, suggestive of REM related sleep apneas. Average pulse was 72 bpm, high pulse was 98 bpm. The technical quality of this test was adequate for clinical decision making. Impression: 1.? There was prolonged, severe, clinically significant oxygen desaturation. 2.? This test does meet Medicare criteria for supplemental oxygen. Recommendations: 1.? Additional evaluation with polysomnography and CPAP titration are recommended to diagnose and determine optimal treatment for likely sleep apnea. 2.? While awaiting polysomnography, consider temporarily using supplemental oxygen to relieve nocturnal oxygen desaturation pending polysomnography results.? CPAP is superior treatment for sleep apnea, if present. 3. Further evaluation is recommended to qualify this patient for noninvasive ventilation with oxygen in the setting of very severe COPD. Nasir Riley MD [facility] Pulmonary & Critical Care Medicine
--- NOTE | 2024-05-17 18:39 | W.NOCTURNAL ---
Date of service: 05/17/24 Time of Service: 19:59 Nocturnal Oximetry Note: This may be a duplicate document, see the document signed 05/17/2024 at 1832 hrs., for date of service 05/12/2024. Please disregard this document.
== END 2024-05-17 23:59 | disposition home or self-care (01) ==
PROVIDERS: PCP Nurse Practitioner; Visit Provider Internal Medicine Critical Care Medicine
DX: J44.9 Chronic obstructive pulmonary disease, unspecified (principal)
CPT/HCPCS: 00123; 94060; 94618; 94729; 94762

== ENCOUNTER → 2024-06-04 13:56 | Outpatient (BNVA) | payer OTHER, SELFPAY | PROVIDERS: PCP Nurse Practitioner; Referring Provider Nurse Practitioner; Visit Provider Physician Assistant Surgical | DX: J44.9 Chronic obstructive pulmonary disease, unspecified (principal); J96.11 Chronic respiratory failure with hypoxia; R91.1 Solitary pulmonary nodule; R53.83 Other fatigue; Z87.891 Personal history of nicotine dependence | CPT/HCPCS: 99214 ==

== ENCOUNTER → 2024-07-04 10:55 | Outpatient (BNVA) | payer OTHER, SELFPAY | PROVIDERS: PCP Nurse Practitioner; Referring Provider Nurse Practitioner; Visit Provider Nurse Practitioner Gerontology | DX: N39.46 Mixed incontinence | CPT/HCPCS: 51798; 99215 ==

== ENCOUNTER 2024-07-26 14:53 | Emergency (ER) | payer OTHER, SELFPAY ==
[2024-07-26 14:55] VITALS: BP 136/88; PULSE 66; RESP 12; TEMP 36.4; O2SAT 90
--- NOTE | 2024-07-26 15:15 | DI.CT_ITS ---
Exam(s) CT CHEST WO EXAM: CT CHEST WO CLINICAL HISTORY: R sided rib pain; fall; SOB. TECHNIQUE: Imaging protocol: Axial computed tomography images were obtained and coronal and sagittal reformatted images were created and reviewed. Computer aided detection (CAD) was utilized. CONTRAST MATERIAL: Noncontrast COMPARISON: CT CT CHEST/ABD/PEL W from 04/23/2024 FINDINGS: Exam limited by motion. Pulmonary parenchyma: No consolidation. No suspicious mass. Stable small right upper lobe nodule. Interstitial changes: Mild scarring at the lung apices. Emphysema: [id number] Tracheobronchial tree: No mucous plugging. No bronchiectasis . Pleura: No effusion or pneumothorax. Heart: The heart is mildly dilated. The coronary arteries show mild calcifications. Aorta: Thoracic aorta non-dilated. Ectatic. Mild atherosclerotic changes. Lymph nodes: No enlarged lymph nodes. Bones: Degenerative changes are seen. A stable moderate compression fracture T10. Stable mild com pression fracture of T11. No acute fractures are visible in the spine or ribs. Upper abdomen: Unremarkable. Limited by motion and streak artifact relation to patient arm positio katie. Soft tissues: Unremarkable. IMPRESSION: No acute abnormality. RADIATION DOSE DELIVERED: Total DLP Total DLP DATA REPOSITORY: All CT scans at this facility are submitted to the National Radiology Data Registry (NRDR) Dose Index Registry (DIR) with the [employer] (ACR). RADIATION OPTIMIZATION: All CT scans at this facility use at least one of these dose optimization te chniques: automated exposure control; mA and/or kV adjustment per patient size (includes targeted exa ms where dose is matched to clinical indication); or iterative reconstruction.
[2024-07-26 15:38] LABS: Abs Immature Grans 0.01 10^3/uL (0.0-0.06); Absolute Basophil Count 0.02 10^3/uL (0.0-0.2); Absolute Eosinophil Count 0.13 10^3/uL (0.0-0.7); Absolute Lymphocyte Count 1.63 10^3/uL (1.2-3.4); Absolute Monocyte Count 0.65 10^3/uL (0.1-0.8); Absolute Neutrophil Count 4.33 10^3/uL (1.2-6.7); Basophils % 0.3 %; Eosinophils % 1.9 %; HCT 39.5 % (36.0-46.0); HGB 13.2 g/dL (11.2-15.7); Immature Grans % 0.1 %; Lymphocytes % 24.1 %; MCH 31.5 pg (27.0-33.0); MCHC 33.4 % (32.0-36.0); MCV 94 fL (80-95); MPV 9.9 fL (8.0-11.0); Monocytes % 9.6 %; Platelet Count 235 10^3/uL (130-400); RBC 4.19 10^6/uL (3.93-5.22); RDW 13.2 % (11.7-14.6); RDW-SD 45.7 fL; WBC 6.77 10^3/uL (4.4-10.8)
[2024-07-26] MEDS: Acetaminophen 500 MG TAB 1000 MG PO (15:40)
[2024-07-26 16:01] LABS: ALT 19 U/L (14-59); AST 15 U/L (15-37); Alkaline Phosphatase 76 U/L (46-116); Anion Gap 4.7 mmol/L (3-11); BUN 13 mg/dL (7-18); Bilirubin, Total 0.25 mg/dL (0.2-1.0); CO2 31.3 mmol/L (21.0-32.0); CREATININE 0.7 mg/dL (0.55-1.02); Calcium 9.3 mg/dL (8.5-10.1); Chloride 107 mmol/L (98-107); Glucose 84 mg/dL (74-106); Lipase 48 U/L (<78); Potassium 4.1 mmol/L (3.5-5.1); Sodium 143 mmol/L (136-145); Total Protein 7.9 g/dL (6.4-8.2); Troponin I 5 ng/L (<or=51)
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
[2024-07-26 17:11] VITALS: BP 128/87; PULSE 78; RESP 20; TEMP 37.1; O2SAT 94
== END 2024-07-26 17:12 | disposition home or self-care (01) ==
PROVIDERS: Emergency Provider Physician Assistant; PCP Nurse Practitioner
DX: S20.211A Contusion of right front wall of thorax, initial encounter (principal); J44.9 Chronic obstructive pulmonary disease, unspecified; Z86.718 Personal history of other venous thrombosis and embolism; Z87.891 Personal history of nicotine dependence; W01.0XXA Fall on same level from slipping, tripping and stumbling without subsequent striking against object, initial encounter
CPT/HCPCS: 71250; 80053; 83690; 99284; 84484; 85025

== ENCOUNTER → 2024-08-23 09:25 | Outpatient (BNVA) | payer OTHER, SELFPAY | PROVIDERS: PCP Nurse Practitioner; Referring Provider Nurse Practitioner; Visit Provider Physician Assistant Surgical | DX: R91.1 Solitary pulmonary nodule (principal); R11.2 Nausea with vomiting, unspecified; Z87.891 Personal history of nicotine dependence; Z29.11 Encounter for prophylactic immunotherapy for respiratory syncytial virus (RSV); Z23 Encounter for immunization; J44.9 Chronic obstructive pulmonary disease, unspecified | CPT/HCPCS: 90380; 90661; 90679; 96381; 99214; G0008 ==

== ENCOUNTER → 2024-11-13 09:41 | Outpatient (BNVA) | payer MEDICARE, SELFPAY | PROVIDERS: PCP Nurse Practitioner; Visit Provider Physician Assistant Surgical | DX: J96.11 Chronic respiratory failure with hypoxia (principal); R91.1 Solitary pulmonary nodule; R11.2 Nausea with vomiting, unspecified; Z87.891 Personal history of nicotine dependence; J44.9 Chronic obstructive pulmonary disease, unspecified; R53.83 Other fatigue | CPT/HCPCS: 99214 ==

== ENCOUNTER → 2024-11-21 11:32 | Outpatient (BNVA) | payer MEDICARE, SELFPAY | PROVIDERS: PCP Nurse Practitioner; Referring Provider Nurse Practitioner; Visit Provider Nurse Practitioner Gerontology | DX: N39.46 Mixed incontinence (principal) | CPT/HCPCS: 51798; 99213 ==

== ENCOUNTER 2024-12-29 11:56 | Inpatient (IN) | payer MEDICARE, SELFPAY ==
[2024-12-29] VITALS (19 sets, daily range): BP systolic 101–120; BP diastolic 57–70; PULSE 68–126; RESP 2–43; TEMP 36–37.6; O2SAT 87–100
--- NOTE | 2024-12-29 12:15 | DI.RAD_ITS ---
Exam(s) XR PORTABLE CHEST AP EXAM: XR PORTABLE CHEST AP CLINICAL HISTORY: sob TECHNIQUE: 2D digital imaging was performed of the chest. One image was obtained. An AP view was ob tained. COMPARISON: CR XR CHEST 2V PA LATERAL from 03/27/2024 FINDINGS: MEDIASTINUM: Normal. HEART: Normal. PULMONARY VASCULATURE: Normal. There is tortuosity of the thoracic aorta. LUNGS: There are increased lung markings in the right costophrenic angle. No focal consolidating inf iltrates are seen. The lungs are hyperinflated with flattened diaphragms which can be seen with unde rlying COPD. PLEURAL SPACE: No pleural effusion or pneumothorax. BONE:Within normal limits for the patient's age. OTHER FINDINGS:Normal. IMPRESSION: 1. Increased lung markings in the right costophrenic angle which may represent atelectasis. Developi ng pneumonia cannot be excluded. No focal consolidating infiltrates are present. Please correlate w ith patient's clinical findings. 2. Hyperexpansion of the lungs. DATA REPOSITORY: RADIATION DOSE DELIVERED:
[2024-12-29] MEDS: Albuterol/Ipratropium 3 ML UPD VIAL UPD ×4 (12:37→16:40)
[2024-12-29] MEDS: methylPREDNISolone SUCC 125 MG VIAL IVP (12:38)
[2024-12-29 13:14] LABS: Abs Immature Grans 0.03 10^3/uL (0.0-0.06); Absolute Basophil Count 0.02 10^3/uL (0.0-0.2); Absolute Eosinophil Count 0.02 10^3/uL (0.0-0.7); Absolute Lymphocyte Count 1.17 10^3/uL (1.2-3.4); BE (Venous) 6 mmol/L (-2-3); Basophils % 0.2 %; Eosinophils % 0.2 %; HCO3 (Venous) 31 mmol/L (23-28); HCT 35.5 % (36.0-46.0); HGB 11.8 g/dL (11.2-15.7); Immature Grans % 0.3 %; Lymphocytes % 9.8 %; MCH 32.5 pg (27.0-33.0); MCHC 33.2 % (32.0-36.0); MCV 98 fL (80-95); MPV 10.1 fL (8.0-11.0); Monocytes % 9.1 %; Neutrophils % 80.4 %; O2 Sat (Venous) 55 %; Platelet Count 286 10^3/uL (130-400); RBC 3.63 10^6/uL (3.93-5.22); RDW 12.6 % (11.7-14.6); RDW-SD 45.4 fL; TCO2 (Venous) 28 mmol/L (24-29); WBC 11.92 10^3/uL (4.4-10.8); pCO2 (Venous) 49 mmHg (41-51); pH (Venous) 7.41 (7.31-7.41); pO2 (Venous) 30 mmHg
[2024-12-29 13:15] LABS: Absolute Monocyte Count 1.08 10^3/uL (0.1-0.8); Absolute Neutrophil Count 9.58 10^3/uL (1.2-6.7)
--- NOTE | 2024-12-29 13:15 | RT.EKG_ITS ---
APPROVED REPORT Exam: Resting ECG Reason for Exam: tachy Patient Location: E HR:124 bpm ECG Measurements Heart Rate 124 AXIS PA 122 P 39 QRSd 107 QRS -26 QT 314 T 102 QTc 451 Conclusion Sinus tachycardia 124 no stemi
[2024-12-29 13:25] LABS: Anion Gap 7.6 mmol/L (3-11); BUN 8 mg/dL (7-18); CO2 30.4 mmol/L (21.0-32.0); CREATININE 0.7 mg/dL (0.55-1.02); Calcium 9.2 mg/dL (8.5-10.1); Chloride 102 mmol/L (98-107); Glucose 109 mg/dL (74-106); Potassium 3.4 mmol/L (3.5-5.1); Sodium 140 mmol/L (136-145)
[2024-12-29] MEDS: cefTRIAXone 1 GM/50 ML BAG IVPB (14:08)
[2024-12-29] MEDS: ACETAMINOPHEN 1,000 MG/100 ML BTL 400 MG IVPB (14:21)
[2024-12-29 14:28] LABS: Lab Add On Test DONE
[2024-12-29] MEDS: DOXYCYCLINE 100 MG in Normal Saline 100 ML IVPB (14:29)
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
[2024-12-29 14:38] LABS: Magnesium 1.7 mg/dL (1.8-2.4)
--- NOTE | 2024-12-29 15:15 | W.PC.ACHO ---
Registration Status: Primary Language: Preferred Language: ED Information & Data Chief Complaint RespSymp 12/29/24 14:40 Triage Note hxo of COPD, 4 days of 12/29/24 11:59 respiratory symptoms, productive cough and 1 day of vomiting. Medical / Surgical History (Last Reviewed 02/09/24 @ 11:17 by Martha Burnette, RN) E-coli UTI Cat bite of left hand with infection Abnormal urine Fungal rash of trunk Bronchospasm (02/07/12) Bursitis of hip (09/20/13) Tobacco use disorder (09/03/16) Trigger finger of left thumb Hemangioma (02/26/16) Osteopenia (07/12/16) Opioid abuse, unspecified (08/01/12) Hip pain (02/07/13) Bursitis of hip (09/20/13) GERD (gastroesophageal reflux disease) DVT (deep venous thrombosis) COPD (chronic obstructive pulmonary disease) Postmenopausal Osteoporosis Learning disability (Last Reviewed 02/09/24 @ 11:17 by Martha Burnette, JAN) colonoscopy (07/07/16) Tubal Ligation, Laparoscopic Transobturator tape & cystourethroscopy, 2010 [facility] chest tubes, 2006 (~2006) Left hip fx w/ repair (03/19/15) Hernia Repair, Incisional (12/01/05) Excisional biopsy mucosa of upper lip (02/26/16) Endoscopic Carpal Tunnel release (12/01/88) EGD, 2010 Biopsy of breast BSO, due to cysts Arthroplasty (08/12/15) Most Recent Vital Signs Temperature 37.4 C 12/29/24 13:40 Pulse 126 H 12/29/24 13:40 Pulse 126 H 12/29/24 13:40 Respiratory Rate 24 12/29/24 13:40 Respiratory Effort Short of Breath 12/29/24 12:20 Blood Pressure 110/58 L 12/29/24 11:59 Pulse Oximetry 95 12/29/24 13:51 Oxygen Delivery Method Nasal Cannula 12/29/24 13:51 Oxygen Flow Rate 2 12/29/24 13:51 Pain Level 5 12/29/24 11:59 Allergies latex Allergy (Severe, Verified 12/29/24 12:02) Rash naproxen Adverse Reaction (Intermediate, Verified 12/29/24 12:02) Nausea amitriptyline Adverse Reaction (Mild, Verified 12/29/24 12:02) Sedating 25mg strength aspirin Adverse Reaction (Mild, Verified 12/29/24 12:02) sticks in throat piroxicam Adverse Reaction (Mild, Verified 12/29/24 12:02) GI distress ropinirole HCl (From Requip) Adverse Reaction (Mild, Verified 12/29/24 12:02) dyskinesia? diclofenac Adverse Reaction (Unknown, Verified 12/29/24 12:02) GI Upset propranolol Adverse Reaction (Unknown, Verified 12/29/24 12:02) unknown Precautions Isolation Standard precaution 12/29/24 12:03 IV IV Catheter Type [Right Peripheral IV Antecubital] IV Catheter Gauge [Right 18 Antecubital] Diet Orders Category Date Time Status Regular/Normal [DIET] Nutrition 12/29/24 Dinner Active Diagnostics 12/29/24 Range/Units 12:40 WBC 11.92 H (4.4-10.8) 10^3/uL RBC 3.63 L (3.93-5.22) 10^6/uL Hgb 11.8 (11.2-15.7) g/dL Hct 35.5 L (36.0-46.0) % MCV 98 H (80-95) fL MCH 32.5 (27.0-33.0) pg MCHC 33.2 (32.0-36.0) % RDW 12.6 (11.7-14.6) % Plt Count 286 (130-400) 10^3/uL MPV 10.1 (8.0-11.0) fL Immature Gran % 0.3 % Neutrophils % 80.4 % Lymphocytes % 9.8 % Monocytes % 9.1 % Eosinophils % 0.2 % Basophils % 0.2 % Nucleated RBC % 0.0 (0.0-0.3) % Absolute Neutrophils 9.58 H (1.2-6.7) 10^3/uL Absolute Lymphocytes 1.17 L (1.2-3.4) 10^3/uL Absolute Monocytes 1.08 H (0.1-0.8) 10^3/uL Absolute Eosinophils 0.02 (0.0-0.7) 10^3/uL Absolute Basophils 0.02 (0.0-0.2) 10^3/uL VBG pH 7.41 (7.31-7.41) VBG pCO2 49 (41-51) mmHg VBG pO2 30 mmHg VBG HCO3 31 H (23-28) mmol/L VBG Total CO2 28 (24-29) mmol/L VBG O2 Saturation 55 % VBG Base Excess 6 H (-2-3) mmol/L Sodium 140 (136-145) mmol/L Potassium 3.4 L (3.5-5.1) mmol/L Chloride 102 (98-107) mmol/L Carbon Dioxide 30.4 (21.0-32.0) mmol/L Anion Gap 7.6 (3-11) mmol/L BUN 8 (7-18) mg/dL Creatinine 0.7 (0.55-1.02) mg/dL Est GFR (CKD-EPI 2020) 90.70 (mL/min/1.73m2) Glucose 109 H (74-106) mg/dL Calcium 9.2 (8.5-10.1) mg/dL Magnesium 1.7 L (1.8-2.4) mg/dL Add-On Test Request DONE 12/29/24 14:22 Blood Culture - Pending Blood 12/29/24 14:01 Blood Culture - Pending Blood Intake and Output - 24 Hour Total 12/29/24 11:56 thru 12/29/24 14:32 Intake Total 0 Balance 0 Weight 57.062 kg Intake: IV 0 Falls Risk Assessment History of Falls Previous History 12/29/24 12:18 Contributing Factors Confusion,Unstable 12/29/24 12:18 Ambulatory Aids Uses ambulatory device 12/29/24 12:18 Tubes/Lines None 12/29/24 12:18 Gait Evaluation W/no contributing factors 12/29/24 12:18 Cognition No cognitive impairment 12/29/24 12:18 Fall Total Score 46 12/29/24 12:18 Level of Risk Moderate Risk 12/29/24 12:18 v v v v v v v v v Sending and/or Receiving Nurses: Please use comment section below to note any information pertinent to the patient hand-off not included above. Information / Comments: Admitted for SOB, Pneumonia, generalized weakness, A&O x3, daughter at bedside, stand pivot due to weakness, one person transfers, uses waker at home, tachycardic, 95% on 2L NC. uses O2 PRN at home, Report received from: Heidi DOSHI RN at [id number]
[2024-12-29] MEDS: predniSONE 20 MG TAB 40 MG PO (15:18)
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
[2024-12-29] MEDS: Enoxaparin 40 MG/0.4 ML SYR SC (17:24)
[2024-12-29] MEDS: MAGNESIUM SULFATE 2 GM/50 ML BAG IV_INF (17:24)
[2024-12-29] MEDS: Clotrimazole 1% 15 GM TUBE TP (20:04)
[2024-12-29] MEDS: Normal Saline Flush 10 ML SYR IVP (20:05)
[2024-12-30] MEDS: Albuterol/Ipratropium 3 ML UPD VIAL UPD (00:52)
[2024-12-30 01:14] VITALS: O2SAT 98
[2024-12-30] MEDS: DOXYCYCLINE 100 MG in Normal Saline 100 ML IVPB (01:57)
[2024-12-30] MEDS: Normal Saline Flush 10 ML SYR IVP ×2 (01:58→09:01)
[2024-12-30 03:04] VITALS: BP 121/68; PULSE 70; RESP 18; TEMP 36; O2SAT 99
--- NOTE | 2024-12-30 07:11 | NUR.NOTE ---
Access chart to reconcile EKG orders with EKGs in [facility] and the EKG units. Nursing Note:
[2024-12-30 07:50] LABS: Abs Immature Grans 0.04 10^3/uL (0.0-0.06); Absolute Basophil Count 0.01 10^3/uL (0.0-0.2); Absolute Lymphocyte Count 0.97 10^3/uL (1.2-3.4); Absolute Monocyte Count 0.69 10^3/uL (0.1-0.8); Absolute Neutrophil Count 8.29 10^3/uL (1.2-6.7); Basophils % 0.1 %; HGB 11.8 g/dL (11.2-15.7); Immature Grans % 0.4 %; Lymphocytes % 9.7 %; MCH 32.1 pg (27.0-33.0); MCHC 33.7 % (32.0-36.0); MCV 95 fL (80-95); MPV 10.5 fL (8.0-11.0); Monocytes % 6.9 %; Neutrophils % 82.9 %; Platelet Count 296 10^3/uL (130-400); RBC 3.68 10^6/uL (3.93-5.22); RDW 12.5 % (11.7-14.6); RDW-SD 44.1 fL
[2024-12-30 08:02] VITALS: BP 107/67; PULSE 68; RESP 15; TEMP 36.2; O2SAT 97
[2024-12-30 08:08] LABS: BUN 12 mg/dL (7-18); CREATININE 0.6 mg/dL (0.55-1.02); Calcium 9.5 mg/dL (8.5-10.1); Chloride 105 mmol/L (98-107); Estimated GFR 94.13 (mL/min/1.73m2); Glucose 139 mg/dL (74-106); Magnesium 2.6 mg/dL (1.8-2.4); Potassium 3.8 mmol/L (3.5-5.1); Sodium 143 mmol/L (136-145)
[2024-12-30 08:47] VITALS: O2SAT 97
[2024-12-30] MEDS: Clotrimazole 1% 15 GM TUBE TP (08:59)
[2024-12-30] MEDS: Calcium 600mg/Vit D 200U TAB 1 TAB PO (09:00)
[2024-12-30] MEDS: Sertraline 25 MG TAB PO (09:00)
[2024-12-30] MEDS: Loratidine 10 MG TAB PO (09:00)
[2024-12-30] MEDS: Cholecalciferol (Vitamin D3) 1,000 UNIT TAB 2000 UNITS PO (09:00)
[2024-12-30] MEDS: Pramipexole 0.25 MG TAB PO (09:00)
[2024-12-30] MEDS: Mirabegron 25 MG TABCR PO (09:00)
[2024-12-30] MEDS: predniSONE 20 MG TAB 40 MG PO (09:00)
[2024-12-30 11:18] VITALS: PULSE 67; PULSE 68; PULSE 81; RESP 16; RESP 22; O2SAT 90; O2SAT 92; O2SAT 93
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
[2024-12-30 11:39] VITALS: BP 106/67; PULSE 70; RESP 17; TEMP 36.5; O2SAT 92
== END 2024-12-30 12:55 | disposition home or self-care (01) | DRG 193 ==
LOC: ER 13:50 → MS 15:29
PROVIDERS: Admitting Provider Family Medicine; Emergency Provider Emergency Medicine; PCP Nurse Practitioner; Responsible Provider Family Medicine; Visit Provider Family Medicine
DX: J18.9 Pneumonia, unspecified organism; J96.21 Acute and chronic respiratory failure with hypoxia; J44.0 Chronic obstructive pulmonary disease with (acute) lower respiratory infection; J44.1 Chronic obstructive pulmonary disease with (acute) exacerbation; E83.42 Hypomagnesemia; E87.6 Hypokalemia; R53.1 Weakness; M48.061 Spinal stenosis, lumbar region without neurogenic claudication; M70.61 Trochanteric bursitis, right hip; K44.9 Diaphragmatic hernia without obstruction or gangrene; N32.81 Overactive bladder; E78.5 Hyperlipidemia, unspecified; M15.9 Polyosteoarthritis, unspecified; K21.9 Gastro-esophageal reflux disease without esophagitis; Z87.891 Personal history of nicotine dependence; Z86.718 Personal history of other venous thrombosis and embolism
CPT/HCPCS: 00123; 36415; 80048; 82805; 87040; 93005; 94618; 94640; 96365; 96368; 96375; 99285; J1650; 71045; 83735; 85025; 93010; 94760; 99222; 99239; J0131; J0696; J2919; J3475; J7512; J7620

== ENCOUNTER 2025-01-01 00:30 | Outpatient (CLI) | payer MEDICARE, SELFPAY ==
[2025-01-01 07:33] LABS: Calculated LDL 132 mg/dL (<100); Cholesterol 217 mg/dL (<200); HDL Cholesterol 69 mg/dL (>or=50); Triglyceride 81 mg/dL (<150)
== END 2025-01-01 00:31 | disposition home or self-care (01) ==
LOC: LBO 00:30
PROVIDERS: PCP Nurse Practitioner; Visit Provider Nurse Practitioner
DX: E78.5 Hyperlipidemia, unspecified (principal)
CPT/HCPCS: 36415; 80061

== ENCOUNTER → 2025-01-16 10:33 | Outpatient (BNVA) | payer MEDICARE, SELFPAY | PROVIDERS: PCP Nurse Practitioner; Referring Provider Nurse Practitioner; Visit Provider Podiatrist | DX: M79.671 Pain in right foot (principal); L84 Corns and callosities; B07.0 Plantar wart; Q82.8 Other specified congenital malformations of skin | CPT/HCPCS: 17110 ==

== ENCOUNTER 2025-01-17 14:38 | Outpatient (REF) | payer MEDICARE, SELFPAY | END 2025-01-17 14:39 | disposition home or self-care (01) | LOC: LBN 14:38 | PROVIDERS: PCP Nurse Practitioner; Visit Provider Obstetrics & Gynecology | DX: N39.3 Stress incontinence (female) (male) (principal); R82.89 Other abnormal findings on cytological and histological examination of urine | CPT/HCPCS: 87086 ==

== ENCOUNTER 2025-01-18 12:11 | Outpatient (CLI) | payer MEDICARE, SELFPAY ==
[2025-01-18 12:54] LABS: Anion Gap 6.4 mmol/L (3-11); BUN 16 mg/dL (7-18); CO2 31.6 mmol/L (21.0-32.0); CREATININE 0.7 mg/dL (0.55-1.02); Calcium 10.2 mg/dL (8.5-10.1); Chloride 102 mmol/L (98-107); Glucose 120 mg/dL (74-106); Potassium 3.8 mmol/L (3.5-5.1); Sodium 140 mmol/L (136-145)
== END 2025-01-18 12:12 | disposition home or self-care (01) ==
LOC: LBO 12:11
PROVIDERS: PCP Nurse Practitioner; Visit Provider Family Medicine
DX: M25.50 Pain in unspecified joint (principal)
CPT/HCPCS: 36415; 80048

== ENCOUNTER 2025-01-18 12:19 | Inpatient (IN) | payer MEDICARE, SELFPAY ==
[2025-01-18] VITALS (20 sets, daily range): BP systolic 106–152; BP diastolic 49–95; PULSE 58–87; RESP 5–29; TEMP 36.2–36.9; O2SAT 83–100
--- NOTE | 2025-01-18 12:30 | DI.RAD_ITS ---
Exam(s) XR CHEST 2V PA LATERAL EXAM: XR CHEST 2V PA LATERAL CLINICAL HISTORY: Chest pain. TECHNIQUE: 2D digital imaging was performed. COMPARISON: CR XR CHEST 2V PA LATERAL from 03/27/2024 CR XR PORTABLE CHEST AP from 12/29/2024 FINDINGS: 2 views: Heart size is normal. The mediastinum is not widened. Lungs are clear. No infiltrates nor pleural effusions. Wedge compression fracture of lower thoracic vertebral body is unchanged from 03/27/2024. IMPRESSION: No acute pulmonary findings. Wedge compression fracture of lower thoracic vertebral body again noted without progression of height loss. DATA REPOSITORY: RADIATION DOSE DELIVERED:
--- NOTE | 2025-01-18 12:30 | RT.EKG_ITS ---
APPROVED REPORT Exam: Resting ECG Reason for Exam: SOB Patient Location: E HR:58 bpm ECG Measurements Heart Rate 58 AXIS DC 144 P 67 QRSd 90 QRS -16 QT 440 T 49 QTc 433 Conclusion Sinus bradycardia, rate 58 No interval abnormalities No STEMI Compared to priors, rate has decreased
[2025-01-18 12:52] LABS: Abs Immature Grans 0.02 10^3/uL (0.0-0.06); Absolute Basophil Count 0.01 10^3/uL (0.0-0.2); Absolute Eosinophil Count 0.01 10^3/uL (0.0-0.7); Absolute Lymphocyte Count 0.78 10^3/uL (1.2-3.4); Absolute Monocyte Count 0.13 10^3/uL (0.1-0.8); Absolute Neutrophil Count 6.23 10^3/uL (1.2-6.7); Basophils % 0.1 %; Eosinophils % 0.1 %; HCT 37.7 % (36.0-46.0); HGB 12.4 g/dL (11.2-15.7); Immature Grans % 0.3 %; Lymphocytes % 10.9 %; MCH 31.1 pg (27.0-33.0); MCHC 32.9 % (32.0-36.0); MCV 95 fL (80-95); MPV 9.5 fL (8.0-11.0); Monocytes % 1.8 %; Neutrophils % 86.8 %; Platelet Count 259 10^3/uL (130-400); RBC 3.99 10^6/uL (3.93-5.22); RDW 13.1 % (11.7-14.6); RDW-SD 45.2 fL; WBC 7.18 10^3/uL (4.4-10.8)
[2025-01-18 13:13] LABS: ALT 19 U/L (14-59); AST 21 U/L (15-37); Albumin 3.7 g/dL (3.4-5.0); Alkaline Phosphatase 76 U/L (46-116); Anion Gap 6.2 mmol/L (3-11); BUN 16 mg/dL (7-18); Bilirubin, Total 0.5 mg/dL (0.2-1.0); CO2 31.8 mmol/L (21.0-32.0); CREATININE 0.7 mg/dL (0.55-1.02); Calcium 10.2 mg/dL (8.5-10.1); Chloride 102 mmol/L (98-107); Glucose 120 mg/dL (74-106); Magnesium 1.7 mg/dL (1.8-2.4); NT-proBNP 201 pg/mL (<300); Potassium 3.9 mmol/L (3.5-5.1); Sodium 140 mmol/L (136-145); Total Protein 7.7 g/dL (6.4-8.2); Troponin I 5 ng/L (<or=51)
[2025-01-18] MEDS: Albuterol/Ipratropium 3 ML UPD VIAL UPD (13:43)
[2025-01-18] MEDS: predniSONE 20 MG TAB 60 MG PO (13:44)
[2025-01-18 14:14] LABS: Troponin I 6 ng/L (<or=51)
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
--- NOTE | 2025-01-18 15:46 | NUR.NOTE ---
Nursing Note: While walking Pt in [place] on [place] her lowest spo2 83% O2 applied during walk pateint stated I feel like this all the time when I walk around
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
[2025-01-18] MEDS: AZITHROMYCIN 500 MG in Normal Saline 250 ML 250 MG IVPB (16:50)
[2025-01-18] MEDS: Enoxaparin 40 MG/0.4 ML SYR SC (17:29)
[2025-01-18 18:03] LABS: Troponin I 6 ng/L (<or=51)
--- NOTE | 2025-01-18 18:24 | W.PC.ACHO ---
Registration Status: Primary Language: Preferred Language: ED Information & Data Chief Complaint SOB 01/18/25 15:38 Chief Complaint SOB 01/18/25 14:29 Triage Note Pt arrives d/t COPD 01/18/25 12:27 exacerbation, productive cough, and recent wt. gain. Pt is not normally on O2 at home. Pt was 86% on RA. 89% on 2L of O2 Medical / Surgical History (Last Updated 01/18/25 @ 16:04 by Carl Mcintyre MD) Chronic obstructive pulmonary disease E-coli UTI Cat bite of left hand with infection Abnormal urine Fungal rash of trunk Bronchospasm (02/07/12) Bursitis of hip (09/20/13) Tobacco use disorder (09/03/16) Trigger finger of left thumb Hemangioma (02/26/16) Osteopenia (07/12/16) Opioid abuse, unspecified (08/01/12) Hip pain (02/07/13) Bursitis of hip (09/20/13) GERD (gastroesophageal reflux disease) DVT (deep venous thrombosis) COPD (chronic obstructive pulmonary disease) Postmenopausal Osteoporosis Learning disability (Last Reviewed 01/17/25 @ 13:02 by Cathy Hilton DO) colonoscopy (07/07/16) Tubal Ligation, Laparoscopic Transobturator tape & cystourethroscopy, 2010 [facility] chest tubes, 2006 (~2006) Left hip fx w/ repair (03/19/15) Hernia Repair, Incisional (12/01/05) Excisional biopsy mucosa of upper lip (02/26/16) Endoscopic Carpal Tunnel release (12/01/88) EGD, 2010 Biopsy of breast BSO, due to cysts Arthroplasty (08/12/15) Most Recent Vital Signs Temperature 36.4 C L 01/18/25 17:05 Temperature Source Temporal Artery Scan 01/18/25 17:05 Pulse 72 01/18/25 17:05 Pulse Rhythm Regular 01/18/25 16:58 Pulse 78 01/18/25 15:01 Respiratory Rate 16 01/18/25 17:05 Respiratory Effort Normal 01/18/25 16:58 Respiratory Depth Normal 01/18/25 16:58 Respiratory Pattern Normal 01/18/25 16:58 Blood Pressure 125/95 H 01/18/25 17:05 Blood Pressure Mean 105 01/18/25 17:05 Pulse Oximetry 93 01/18/25 17:38 Oxygen Delivery Method Room Air 01/18/25 17:38 Oxygen Flow Rate 0 01/18/25 17:38 Pain Level 0 01/18/25 17:05 Comment 83% RA during walk to Bathroom 01/18/25 15:15 Allergies latex Allergy (Severe, Verified 01/18/25 11:17) Rash naproxen Adverse Reaction (Intermediate, Verified 01/18/25 11:17) Nausea amitriptyline Adverse Reaction (Mild, Verified 01/18/25 11:17) Sedating 25mg strength aspirin Adverse Reaction (Mild, Verified 01/18/25 11:17) sticks in throat piroxicam Adverse Reaction (Mild, Verified 01/18/25 11:17) GI distress ropinirole HCl (From Requip) Adverse Reaction (Mild, Verified 01/18/25 11:17) dyskinesia? diclofenac Adverse Reaction (Unknown, Verified 01/18/25 11:17) GI Upset propranolol Adverse Reaction (Unknown, Verified 01/18/25 11:17) unknown Precautions Isolation Standard precaution 01/18/25 15:38 Active Medications Generic Name Dose Route Start Last Admin Trade Name Freq PRN Reason Stop Dose Admin Enoxaparin Sodium 40 mg 01/18/25 16:00 01/18/25 17:29 Enoxaparin 40 Mg/0.4 Ml Syr SC 40 mg Q24H MIGUEL Administration IV IV Catheter Type [Left Saline Lock Antecubital] Diet Orders Category Date Time Status Regular/Normal [DIET] Nutrition 01/18/25 Dinner Active Diagnostics 01/18/25 01/18/25 01/18/25 Range/Units 17:35 13:50 12:45 WBC 7.18 (4.4-10.8) 10^3/uL RBC 3.99 (3.93-5.22) 10^6/uL Hgb 12.4 (11.2-15.7) g/dL Hct 37.7 (36.0-46.0) % MCV 95 (80-95) fL MCH 31.1 (27.0-33.0) pg MCHC 32.9 (32.0-36.0) % RDW 13.1 (11.7-14.6) % Plt Count 259 (130-400) 10^3/uL MPV 9.5 (8.0-11.0) fL Immature Gran % 0.3 % Neutrophils % 86.8 % Lymphocytes % 10.9 % Monocytes % 1.8 % Eosinophils % 0.1 % Basophils % 0.1 % Nucleated RBC % 0.0 (0.0-0.3) % Absolute Neutrophils 6.23 (1.2-6.7) 10^3/uL Absolute Lymphocytes 0.78 L (1.2-3.4) 10^3/uL Absolute Monocytes 0.13 (0.1-0.8) 10^3/uL Absolute Eosinophils 0.01 (0.0-0.7) 10^3/uL Absolute Basophils 0.01 (0.0-0.2) 10^3/uL Sodium 140 (136-145) mmol/L Potassium 3.9 (3.5-5.1) mmol/L Chloride 102 (98-107) mmol/L Carbon Dioxide 31.8 (21.0-32.0) mmol/L Anion Gap 6.2 (3-11) mmol/L BUN 16 (7-18) mg/dL Creatinine 0.7 (0.55-1.02) mg/dL Est GFR (CKD-EPI 2020) 90.70 (mL/min/1.73m2) Glucose 120 H (74-106) mg/dL Calcium 10.2 H (8.5-10.1) mg/dL Magnesium 1.7 L (1.8-2.4) mg/dL Total Bilirubin 0.5 (0.2-1.0) mg/dL AST 21 (15-37) U/L ALT 19 (14-59) U/L Alkaline Phosphatase 76 (46-116) U/L Troponin I Pending 6 5 (<or=51) ng/L NT-Pro-B Natriuret Pep 201 (<300) pg/mL Total Protein 7.7 (6.4-8.2) g/dL Albumin 3.7 (3.4-5.0) g/dL Intake and Output - 24 Hour Total 01/18/25 12:19 thru 01/18/25 17:55 Intake Total 260 Balance 260 Weight 58.967 kg Intake: IV 260 Other: Urine Appearance Clear Falls Risk Assessment History of Falls Previous History 01/18/25 16:58 Ambulatory Aids Uses ambulatory device 01/18/25 16:58 Tubes/Lines With any additional score 01/18/25 16:58 Gait Evaluation No gait disturbance 01/18/25 16:58 Fall Total Score 50 01/18/25 16:58 Level of Risk Moderate Risk 01/18/25 16:58 Problems (Last Updated 01/18/25 @ 16:04 by Carl Mcintyre MD) Dyslipidemia (Acute) Cough (Acute) Notes 01/18/25 15:46 Nursing Notes by Migdalia Bolanos Nursing Note: While walking Pt in [place] on [place] her lowest spo2 83% O2 applied during walk pateint stated I feel like this all the time when I walk around Initialized on 01/18/25 15:46 - END OF NOTE v v v v v v v v v Sending and/or Receiving Nurses: Please use comment section below to note any information pertinent to the patient hand-off not included above. Information / Comments: Pt sent to ED from urgent care d/t continued SOB and cough that she was seen for yesterday in urgent care as well. Pt was given steroids and antibiotic yesterday and she is feeling worse today. Pt was found to be having COPD exacerbation. Pt was walked by RT and she failed to keep O2 sat above 80's with O2 so she was admitted to floor for further treatment. Pt is a/o x 4 and able to make needs known. Pt walked from stretcher to bed with steady gait. Pt does get winded with exertion. Pt is SOB at baseline but has been worse in past few days to where she cannot walk to bathroom at home without getting SOB. Pt reports some dark yellow thick sputum that comes up intermittently. Pt Report received from:
[2025-01-18] MEDS: Budesonide/Formoterol 160/4.5 6 GM 60 PUFF INH IH (19:31)
[2025-01-18] MEDS: Clotrimazole 1% 15 GM TUBE TP (19:55)
[2025-01-18] MEDS: Benzonatate 100 MG CAP PO (19:55)
[2025-01-18] MEDS: Normal Saline Flush 10 ML SYR IVP (19:56)
[2025-01-19 02:57] VITALS: BP 131/68; PULSE 66; RESP 18; TEMP 36.6
[2025-01-19 07:07] LABS: Abs Immature Grans 0.02 10^3/uL (0.0-0.06); Absolute Basophil Count 0.01 10^3/uL (0.0-0.2); Absolute Lymphocyte Count 1.59 10^3/uL (1.2-3.4); Absolute Monocyte Count 0.63 10^3/uL (0.1-0.8); Absolute Neutrophil Count 6.05 10^3/uL (1.2-6.7); Basophils % 0.1 %; HCT 33.7 % (36.0-46.0); HGB 11.4 g/dL (11.2-15.7); Immature Grans % 0.2 %; Lymphocytes % 19.2 %; MCH 31.7 pg (27.0-33.0); MCHC 33.8 % (32.0-36.0); MCV 94 fL (80-95); Monocytes % 7.6 %; Neutrophils % 72.9 %; Platelet Count 259 10^3/uL (130-400); RDW 13.2 % (11.7-14.6)
[2025-01-19 07:19] VITALS: BP 136/74; PULSE 62; RESP 16; TEMP 36.2; O2SAT 94
[2025-01-19 07:25] LABS: ALT 17 U/L (14-59); AST 16 U/L (15-37); Albumin 3.2 g/dL (3.4-5.0); Alkaline Phosphatase 65 U/L (46-116); Anion Gap 5.9 mmol/L (3-11); BUN 18 mg/dL (7-18); Bilirubin, Total 0.5 mg/dL (0.2-1.0); CO2 31.1 mmol/L (21.0-32.0); CREATININE 0.7 mg/dL (0.55-1.02); Calcium 9.6 mg/dL (8.5-10.1); Chloride 105 mmol/L (98-107); Glucose 106 mg/dL (74-106); Potassium 3.8 mmol/L (3.5-5.1); Sodium 142 mmol/L (136-145); Total Protein 6.6 g/dL (6.4-8.2)
[2025-01-19] MEDS: Budesonide/Formoterol 160/4.5 6 GM 60 PUFF INH IH ×2 (08:24→20:09)
[2025-01-19] MEDS: Umeclidinium 7 CAP INHALER 1 CAP IH (08:24)
[2025-01-19 08:25] VITALS: O2SAT 92
[2025-01-19] MEDS: Cholecalciferol (Vitamin D3) 1,000 UNIT TAB 2000 UNITS PO (08:37)
[2025-01-19] MEDS: Loratidine 10 MG TAB PO (08:37)
[2025-01-19] MEDS: Mirabegron 25 MG TABCR PO (08:38)
[2025-01-19] MEDS: Calcium 600mg/Vit D 200U TAB 2 TAB PO (08:38)
[2025-01-19] MEDS: Sertraline 25 MG TAB PO (08:38)
[2025-01-19] MEDS: Benzonatate 100 MG CAP PO ×3 (08:38→20:14)
[2025-01-19] MEDS: Normal Saline Flush 10 ML SYR IVP ×2 (08:39→20:15)
--- NOTE | 2025-01-19 09:48 | PT.INIE ---
PT Notes Visit Reasons: COPD Inpatient Physical Therapy Evaluation Date: 01/19/2025 Referring Doctor: Dr. Mcintyre PT Orders: PT CONSULT Precautions: Standard Patient Profile/Admitting Diagnosis: Destini is a 74-year-old female who was recently admitted and discharged from [facility] on 12/29-12/31 with signs and symptoms consistent with a COPD exacerbation. She returned to the hospital 01/18/25 for further evaluation and treatment for worsening shortness of breath as well as cough. Most recent pulmonary function test which indicates severe COPD. Admitted to acute care for medical management of COPD and dyslipidemia. Social History/Home Situation: Destini lives independently in a private home. She has 2STE. Has both a cane and FWW, but states that she rarely uses either. Equipment Owned/DME: Cane, FWW Subjective: Destini states that she is feeling well. States that she has been up to the toilet on her own, and that her walking feels normal. Does admit to multiple falls in the past, she estimates 10 in the past year. Has assistive devices at home, although prefers not to use, as they get in her way. Objective: General Observation: Sitting up in bed working with nursing upon PT arrival. IV in L UE. Observed walking independently about the room with wide base of support. Cleans up independently at the sink and is able to demonstrate trunk rotation, and carry on conversation while performing ADLs all without loss of balance or safety concerns., Mental Status: A and O x 3 Pain: denies Vital Signs: Resting SaO2 90% in long sit position. Upon standing, she increases to 92% on room air. With ambulation, desaturates to 88% without BIRCH, quickly recovering to 91% with sitting. ROM: Right Upper Extremity: Demonstrates 100 degree shoulder flexion bilaterally. Elbow and wrist motion WFL bilaterally Left Upper Extremity: Demonstrates 100 degree shoulder flexion bilaterally. Elbow and wrist motion WFL bilaterally Right Lower Extremity: WFL Left Lower Extremity: WFL Strength: Right Upper Extremity: Shoulder flexion 4/5 within available range. Elbow flexion 4+/5; elbow extension 4+/5 Left Upper Extremity: Shoulder flexion 4/5 within available range. Elbow flexion 4+/5; elbow extension 4+/5 Right Lower Extremity: Hip flexion 4+/5. Quads 4+/5. Ankle dorsiflexion 5/5. Left Lower Extremity: Hip flexion 4+/5. Quads 4+/5. Ankle dorsiflexion 5/5. Bed Mobility/Transfers: Supine?sit: Independent Sit?supine: Independent Sit?stand: Independent Stand?sit: Independent Gait: Ambulates 100 feet without assistive device, SBA with wide base of support and minor path deviations throughout. With introduction of cane, patient demonstrates significantly improved gait mechanics, without path deviation or loss of balance. Balance: Static Sitting: Normal Dynamic Sitting: Normal Static Standing: good Dynamic Standing: fair Special Tests: Mobility Limitations Standardized Measure [facility] AM-PAC 6 clicks Basic Mobility Inpatient Short Form: Raw Score: 24 CMS Score: 0% impairment Farrell Balance Test: 33/56 Informed Consent/Education: Patient instructed in purpose of PT consult and plan of care. Treatment: Initial Evaluation (01167) Neuromuscular Re-education (88658): Balance retraining as follows: partial tandem stance 30 seconds each side, min A SLS 10 seconds each min A standing trunk rotation 5x SBA instruction in use of cane, and discussion regarding safety concerns. Encourage use of cane for all ambulation both here at the hospital and at home. Assessment: Patient is a 74 year old female referred to physical therapy services in acute care setting where she is being managed for COPD exacerbation. She appears to be ambulating at baseline level of function, and demonstrates good independence with use of cane. She does have an extensive fall history And low scores on Farrell balance test, and was encouraged to utilize cane for all ambulation. She tolerated household distance ambulation with SaO2 remaining 88% and above, and without significant BIRCH. She currently demonstrates the following impairment level findings: 1. balance impairment with Farrell score 33/56 2. h/o falls 3. decreased activity tolerance Impairments are contributing to the following functional limitations: 1. Decreased activity tolerance 2. Requires use of cane for all ambulation Patient is assessed as a Low 41026 complexity based on the following: History: As above. Examination: As above Presentation: Evolving due to acute medical issues Decision Making: Low complexity Goals: Goals X1 week 1. Demonstrate safe and consistent use of cane for ambulation 2. Able to tolerate community distance ambulation (300 feet) with cane and supervision Plan of Care/Treatment Plan: 1-2x/day, 7 days/week x 1 week. Plan of care has been reviewed with the PARAPROFESSIONAL AIDE providing the service under Physical Therapy direction. Initiate Physical Therapy intervention for strengthening, bed mobility, transfers, gait, stairs, balance training, use of assistive device. DISCHARGE RECOMMENDATIONS: Home with PT for balance retraining TREATMENT CODE/TIME: [id number] (34504, [id number]) Rema Howell, PT, DPT [facility] All Active Problems (Updated 01/18/25 @ 17:02 by Medina Almeida MD) Dyslipidemia (Acute) Acute exacerbation of COPD with asthma (Acute) Plantar verruca (Acute) Corns and callosities (Acute) Porokeratosis (Acute) Chronic hypoxic respiratory failure (Acute) Acute bronchitis (Acute) Fatigue (Acute) Nausea & vomiting (Acute) Spinal stenosis, lumbar (Acute) Stress incontinence (Acute) 06/2024. Wears peripad. May contribute to vulvar issues Lumbar radiculopathy (Acute) Lumbar spinal stenosis (Acute) Osteoarthritis of right hip (Acute) POCUS INJECTION 11/24/23 Trochanteric bursitis, right hip (Acute) DEPO MEDROL 10/31/23 Vaginitis and vulvovaginitis (Acute) Urinary tract bacterial infections (Acute) Dysuria (Acute) Cough (Acute) Acute viral disease (Acute) Deep inguinal pain, right (Acute) Intercostal neuralgia (Acute) Lumbosacral spondylosis without myelopathy (Acute) Trochanteric bursitis of left hip (Acute) DEPO MEDROL 10/31/23 Arthritis of right elbow (Acute) Arthritis of right shoulder region (Acute) SARS-CoV-2 positive (Acute ~01/19/22) History of vertebral compression fracture (Acute) Orthopnea (Acute) Personal history of nicotine dependence (Acute) Pulmonary nodule (Acute) per 03/03/23 CT ([facility], ED, for chest wall contusion): Stable tiny nodule right upper lobe. Nodule seen on the 24 February 2022 exam in the left upper lobe is not seen on the current exam. Multiple joint pain (Acute) Vulvar pruritus (Acute) Left hip pain (Acute) Lichen sclerosus et atrophicus (Chronic) never bx proven. sx of vulvar burning and pain c/w Dx. No lichenification. Rx with topical steroid improves sx. 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) FDC current use of anticoagulant therapy (Chronic 09/08/15) Gastroesophageal reflux disease (Chronic) EGD: hiatal hernia Hyperlipidemia, unspecified (Chronic) 06/2018 labs: 10-year ASCVD risk = ~6.3% --> no statin indicated at this time Polyarthralgia (Chronic 04/18/17) Osteoporosis, unspecified (Chronic 12/29/16) 2-year f/u DXA showing -3.1% interval decrease in T-score despite Fosamax tx +Kyphosis Learning disability (Chronic) Depressive disorder (Chronic 02/22/13) Chronic low back pain (Chronic 02/07/12) Lumbar spine MRI 01/2012: DJD and facet disease; L5-S1 mild-mod b/l neural foraminal narrowing, compression discs T12 & L4 LLL RADICULAR PAIN Atrophic vaginitis (Chronic 02/07/13) Vaginal E2 cream. Medical History (Updated 01/18/25 @ 17:02 by Medina Almeida MD) Chronic obstructive pulmonary disease Hospitalized 2006 for lung problems COPD seen on [address] 09/15/2016 PFTs: severe obstructive airway disease with significant bronchodilatory response & diffusion defect ?asthma E-coli UTI Cat bite of left hand with infection Abnormal urine Fungal rash of trunk Bronchospasm (02/07/12) Bursitis of hip (09/20/13) Tobacco use disorder (09/03/16) QUIT, per pt report, 08/2022, ik Trigger finger of left thumb repaired 07/17/18, dr choi Hemangioma (02/26/16) David Edgar- upperlip Osteopenia (07/12/16) Opioid abuse, unspecified (08/01/12) See message from 08/01/12 from [facility]. UDS Pill count abnormal and they are discharging pt from practice. No opioids or other controlled medication to be prescribed to pt. Hip pain (02/07/13) Left; MRI [facility], bursitis; abductor tendonitis; injections works for a few days Bursitis of hip (09/20/13) MRI LLE 2013 GERD (gastroesophageal reflux disease) DVT (deep venous thrombosis) S/p hip surgery 08/2015 COPD (chronic obstructive pulmonary disease) Postmenopausal Osteoporosis Learning disability Surgical History colonoscopy (07/07/16) Tubal Ligation, Laparoscopic 1980s Transobturator tape & cystourethroscopy, 2010 [facility] Lung chest tubes, 2006 (~2006) RIGHT lung Left hip fx w/ repair (03/19/15) Hernia Repair, Incisional (12/01/05) Sarita Excisional biopsy mucosa of upper lip (02/26/16) Performed by Dr. David Edgar Pathology from [facility] shows Hemangioma present at peripheral and deep margins Endoscopic Carpal Tunnel release (12/01/88) LEFT EGD, 2010 Biopsy of breast LEFT, benign BSO, due to cysts Arthroplasty (08/12/15) L total hip--avascular necrosis following healed femoral neck Fx Dr Harrell
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
--- NOTE | 2025-01-19 11:33 | PGE_ITS ---
Date of Service Date of service: 01/19/25 Time of Service: 11:33 Assessment and Plan Assessment and plan (1) Dyslipidemia: Status: Acute Assessment and plan: medical managmenet (2) Cough: Status: Acute Assessment and plan: add tessalon and cough medicine (3) COPD (chronic obstructive pulmonary disease): Assessment and plan: add albuterol/duoneb/steroids/breztri/zithromax. Pt would seem to be able to pass her O2 test quite easily considering her COPD. It is imperative that the pt has all the appropriate vaccinations prior to dc. I will add a copy of her last PFT Date of service: 05/10/24 Time of Service: 15:49 Pulmonary Function Test Result Requesting Provider Meagan Wheeler MD Indications: COPD, former smoker Interpretation Spirometry: Spirometry pre and postbronchodilator show: 1. Very severe airway obstruction at baseline (FEV1 26% predicted), which improved to severe airway obstruction (FEV1 35% predicted) postbronchodilator. This is consistent with advanced COPD with an asthmatic component. 2. Positive response to bronchodilator, with 34% improvement in FEV1. 3. Mildly decreased forced vital capacity after bronchodilator (77% predicted). 4. Television Camera Operator comments indicated a good patient effort. The patient used albuterol 1 hour before the test. Lung Volumes: Lung volumes by plethysmography showed: 1. Mildly decreased slow vital capacity at 72% predicted, inspiratory capacity 59% predicted. Patient unable to perform complete lung volume studies. Diffusion Capacity: Severe gas exchange abnormality (35% predicted DLCO), which did not normalize when adjusted for lung volumes (68% predicted DL/VA.) Impression Very severe airway obstruction at baseline, with positive bronchodilator response. Clinical Correlation is recommended. 01/19/25 Pt on albuterol/duoneb/formoterol/budesonide/Incruse Subjective Subjective Interval history since last seen: Pt seen and examined in her room this am. Pt states that she is feeling much better. Exam Narrative Exam Narrative: HEENT: Normocephalic atraumatic mucous membranes moist oropharynx is clear Neck: No lymphadenopathy no JVD no thyromegaly Cardiovascular: Regular rate and rhythm no murmur rubs gallops Lungs: Bilateral wheeze with mild accessory muscle use. Abdomen: Soft nontender nondistended Musculoskeletal: Kyphotic Neurologic: Cranial nerves II through XII intact as tested reflexes upper extremity normal as tested Psych: Alert and oriented x 3 Objective Last Vital Signs Temp 36.2 C L 01/19/25 07:19 Pulse 62 01/19/25 07:19 Resp 16 01/19/25 07:19 BP 136/74 01/19/25 07:19 Pulse Ox 92 01/19/25 08:25 Laboratory Results - last 24 hr 01/18/25 01/18/25 01/18/25 12:45 13:50 17:35 WBC 7.18 RBC 3.99 Hgb 12.4 Hct 37.7 MCV 95 MCH 31.1 MCHC 32.9 RDW 13.1 Plt Count 259 MPV 9.5 Immature Gran % 0.3 Neutrophils % 86.8 Lymphocytes % 10.9 Monocytes % 1.8 Eosinophils % 0.1 Basophils % 0.1 Nucleated RBC % 0.0 Absolute Neutrophils 6.23 Absolute Lymphocytes 0.78 L Absolute Monocytes 0.13 Absolute Eosinophils 0.01 Absolute Basophils 0.01 Sodium 140 Potassium 3.9 Chloride 102 Carbon Dioxide 31.8 Anion Gap 6.2 BUN 16 Creatinine 0.7 Est GFR (CKD-EPI 2020) 90.70 Glucose 120 H Calcium 10.2 H Magnesium 1.7 L Total Bilirubin 0.5 AST 21 ALT 19 Alkaline Phosphatase 76 Troponin I 5 6 6 NT-Pro-B Natriuret Pep 201 Total Protein 7.7 Albumin 3.7 01/19/25 06:25 WBC 8.30 RBC 3.60 L Hgb 11.4 Hct 33.7 L MCV 94 MCH 31.7 MCHC 33.8 RDW 13.2 Plt Count 259 MPV 10.0 Immature Gran % 0.2 Neutrophils % 72.9 Lymphocytes % 19.2 Monocytes % 7.6 Eosinophils % 0.0 Basophils % 0.1 Nucleated RBC % 0.0 Absolute Neutrophils 6.05 Absolute Lymphocytes 1.59 Absolute Monocytes 0.63 Absolute Eosinophils 0.00 Absolute Basophils 0.01 Sodium 142 Potassium 3.8 Chloride 105 Carbon Dioxide 31.1 Anion Gap 5.9 BUN 18 Creatinine 0.7 Est GFR (CKD-EPI 2020) 90.70 Glucose 106 Calcium 9.6 Magnesium Total Bilirubin 0.5 AST 16 ALT 17 Alkaline Phosphatase 65 Troponin I NT-Pro-B Natriuret Pep Total Protein 6.6 Albumin 3.2 L Time Spent with Patient Time Spent with Patient: 25-34 minutes Time was spent: preparing to see the patient(eg.review tests), obtaining and/or reviewing separately otained hiistory, ordering medications,tests, procedures, referring, communicating with other health clinical care coordinator, indepentently interpreting results, counseling the patient and care coordination
[2025-01-19 15:00] VITALS: BP 131/70; PULSE 60; RESP 16; TEMP 36.1; O2SAT 95
[2025-01-19] MEDS: Enoxaparin 40 MG/0.4 ML SYR SC (15:10)
[2025-01-19 19:39] VITALS: BP 118/73; PULSE 68; RESP 18; TEMP 36.3; O2SAT 96
[2025-01-19] MEDS: Clotrimazole 1% 15 GM TUBE TP (20:15)
[2025-01-19 22:37] VITALS: O2SAT 94
[2025-01-20 03:14] VITALS: BP 132/80; PULSE 55; RESP 16; TEMP 36.5; O2SAT 91
[2025-01-20 06:40] LABS: Abs Immature Grans 0.02 10^3/uL (0.0-0.06); Absolute Basophil Count 0.02 10^3/uL (0.0-0.2); Absolute Eosinophil Count 0.08 10^3/uL (0.0-0.7); Absolute Lymphocyte Count 2.31 10^3/uL (1.2-3.4); Absolute Monocyte Count 0.57 10^3/uL (0.1-0.8); Absolute Neutrophil Count 2.33 10^3/uL (1.2-6.7); Basophils % 0.4 %; Eosinophils % 1.5 %; HCT 35.8 % (36.0-46.0); HGB 11.6 g/dL (11.2-15.7); Immature Grans % 0.4 %; Lymphocytes % 43.3 %; MCHC 32.4 % (32.0-36.0); MCV 96 fL (80-95); Monocytes % 10.7 %; Neutrophils % 43.7 %; Platelet Count 256 10^3/uL (130-400); RBC 3.74 10^6/uL (3.93-5.22); RDW 13.2 % (11.7-14.6); RDW-SD 46.5 fL; WBC 5.33 10^3/uL (4.4-10.8)
[2025-01-20 07:08] LABS: ALT 17 U/L (14-59); AST 15 U/L (15-37); Albumin 3.1 g/dL (3.4-5.0); Alkaline Phosphatase 62 U/L (46-116); Anion Gap 5.2 mmol/L (3-11); BUN 20 mg/dL (7-18); Bilirubin, Total 0.2 mg/dL (0.2-1.0); CO2 30.8 mmol/L (21.0-32.0); CREATININE 0.7 mg/dL (0.55-1.02); Calcium 9.1 mg/dL (8.5-10.1); Chloride 106 mmol/L (98-107); Glucose 84 mg/dL (74-106); Potassium 3.8 mmol/L (3.5-5.1); Sodium 142 mmol/L (136-145); Total Protein 6.4 g/dL (6.4-8.2)
[2025-01-20 07:47] VITALS: BP 139/80; PULSE 62; RESP 18; TEMP 36.5; O2SAT 92
[2025-01-20] MEDS: Calcium 600mg/Vit D 200U TAB 2 TAB PO (08:31)
[2025-01-20] MEDS: Cholecalciferol (Vitamin D3) 1,000 UNIT TAB 2000 UNITS PO (08:31)
[2025-01-20] MEDS: Mirabegron 25 MG TABCR PO (08:31)
[2025-01-20] MEDS: Normal Saline Flush 10 ML SYR IVP (08:31)
[2025-01-20] MEDS: Clotrimazole 1% 15 GM TUBE TP (08:32)
[2025-01-20] MEDS: Loratidine 10 MG TAB PO (08:32)
[2025-01-20] MEDS: Benzonatate 100 MG CAP PO (08:32)
[2025-01-20] MEDS: Sertraline 25 MG TAB PO (08:32)
[2025-01-20] MEDS: Budesonide/Formoterol 160/4.5 6 GM 60 PUFF INH IH (09:01)
[2025-01-20] MEDS: Umeclidinium 7 CAP INHALER 1 CAP IH (09:01)
[2025-01-20 09:04] VITALS: O2SAT 90
--- NOTE | 2025-01-20 11:22 | CMDISCH_ITS ---
Date of service: 01/20/25 Time of Service: 11:22 LACE Index Scoring Tool Questions: Length of Stay (in days): 2 Was the patient admitted via the E.D.?: Yes Comorbidities: Chronic Pulmonary Disease E.D. Visits: 3 Answers: Total Score: 10 Risk of Readmission: High Risk Care Management Discharge Plan Reason for Hospitalization: COPD Discharge Plan: Destini will discharge home with new out patient PT. She will follow up with her community provider and discharge plan of care. She will drive herself home, with one of her children following. Patient/Family Education Needs: Review of discharge instructions, activity, limitations, and plan of care. Discuss Ask Me Three Services Needed at Discharge: Physical Therapy SDOH Health Related Social Needs: Health related social needs housing instability, house d, with risk of homelessness (Z59.811), problems related to housing/economic circumstances (Z59.89), problems with daily activities (Z73.9), education (Z55.6) Health related social needs details Pt worries about f inancial stability and having a steady place to live Health related social needs details: Pt worries about financial stability and having a steady place to live
--- NOTE | 2025-01-20 11:50 | PT.INTREAT ---
PT Notes Visit Reasons: COPD Inpatient Physical Therapy Treatment Note [facility] Date: 01/20/25 PRECAUTIONS: standard SUBJECTIVE: Destini states that she is feeling good today. She's been walking independently in her room. States that her daughter bought her a walker with a seat to use at home. OBJECTIVE: ? VITALS: ? Pre-Treatment: SaO2 93% on room air ? Post-Treatment: SaO2 remains above 88% throughout ambulation? BED MOBILITY/TRANSFERS? Rolling L/R: independent Supine-sit: independent? Sit-supine: independent ? Sit-stand: independent? Stand-sit: independent ? Bed-Chair: independent ? Chair-bed: independent ? Therapeutic Exercises (18421y3): Direct one-on-one instruction in therapeutic exercises to develop strength, endurance, range of motion and flexibility. Ambulation: Ambulates 150' with cane, supervision only. ? Assistive Device: cane? Weight bearing: WBAT Assist: supervision ? Distance:? 150' ? Deviation: cues for pacing. SaO2 drops to 88% briefly, quickly recovering with pursed lip breathing. No significant BIRCH, but does have single bout of coughing upon return to room. ? ASSESSMENT/PLAN:? Improved activity tolerance. Demonstrates good safety with use of AD for ambulation. TREATMENT CODE/TIME: 37854 ([id number]) DISCHARGE RECOMMENDATION: D/C home once medically cleared. Outpatient PT for balance retraining and fall prevention.
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
--- NOTE | 2025-01-20 12:05 | PDOC.HHF2F_ITS ---
Home Health Referral Encounter Date and Reason: I certify that a FTF encounter for this patient was performed on January 20, 2025 and that such encounter was related to the primary reason the patient requires home health services. The encounter was conducted in the following manner: * By me as the certifying physician, REGISTERED DIET TECHNICIAN, PA or * By an inpatient physician, REGISTERED DIET TECHNICIAN or PA during an inpatient stay who communicated findings to me, Certification And Authentication I certify that I composed the above information based on my clinical judgment relating to this patient's medical condition and, if applicable, clinical findings communicated to me by the NPP or inpatient physician who performed the FTF encounter. Name of Provider that will be monitoring home health services: Carl Mcintyre
== END 2025-01-20 13:02 | disposition home or self-care (01) | DRG 191 ==
LOC: ER 12:31 → MS 16:41
PROVIDERS: Admitting Provider Hospitalist; Emergency Provider Emergency Medicine; PCP Nurse Practitioner; Responsible Provider Hospitalist; Visit Provider Hospitalist
DX: J44.1 Chronic obstructive pulmonary disease with (acute) exacerbation; J96.11 Chronic respiratory failure with hypoxia; Z59.811 Housing instability, housed, with risk of homelessness; E78.5 Hyperlipidemia, unspecified; R05.9 Cough, unspecified; Z87.891 Personal history of nicotine dependence; N32.81 Overactive bladder; M47.27 Other spondylosis with radiculopathy, lumbosacral region; N39.3 Stress incontinence (female) (male); G58.8 Other specified mononeuropathies; M15.9 Polyosteoarthritis, unspecified; K21.9 Gastro-esophageal reflux disease without esophagitis; M81.0 Age-related osteoporosis without current pathological fracture; Z79.01 Long term (current) use of anticoagulants; Z86.718 Personal history of other venous thrombosis and embolism; Z79.899 Other long term (current) drug therapy; Z59.89 Other problems related to housing and economic circumstances
CPT/HCPCS: 00123; 36415; 80053; 93005; 94640; 97110; 97112; 97161; 99285; J1650; 71046; 83735; 83880; 84484; 85025; 93010; 94664; 94667; 94668; 94760; 99222; 99231; 99232; 99239; J0456; J7512; J7620

== ENCOUNTER → 2025-02-12 08:24 | Outpatient (BNVA) | payer MEDICARE, SELFPAY | PROVIDERS: PCP Nurse Practitioner; Referring Provider Nurse Practitioner; Visit Provider Physician Assistant Surgical | DX: R91.1 Solitary pulmonary nodule (principal); Z87.891 Personal history of nicotine dependence; R11.2 Nausea with vomiting, unspecified; R53.83 Other fatigue; J44.9 Chronic obstructive pulmonary disease, unspecified; I07.1 Rheumatic tricuspid insufficiency | CPT/HCPCS: 99214; 94010 ==

== ENCOUNTER → 2025-02-27 12:32 | Outpatient (BNVA) | payer MEDICARE, SELFPAY | PROVIDERS: PCP Nurse Practitioner; Visit Provider Nurse Practitioner Gerontology | DX: N39.46 Mixed incontinence (principal) | CPT/HCPCS: 99213; 51798 ==

== ENCOUNTER 2025-03-10 22:19 | Observation (INO) | payer MEDICARE, SELFPAY ==
[2025-03-10] VITALS (12 sets, daily range): BP systolic 116–136; BP diastolic 61–74; PULSE 66–78; RESP 14–21; TEMP 37.3; O2SAT 86–98
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
--- NOTE | 2025-03-10 22:30 | RT.EKG_ITS ---
APPROVED REPORT Exam: Resting ECG Reason for Exam: Patient Location: E HR:77 bpm ECG Measurements Heart Rate 77 AXIS GA 121 P 32 QRSd 102 QRS -10 QT 409 T 41 QTc 464 Conclusion Sinus rhythm...normal P axis, V-rate 60- 99 Low voltage, extremity and precordial leads...extremity<0.5mV, precordial<1.0mV Consider anterior infarct...Q >30mS in V2-V5 Normal Orla/Interval No acute ST changes There are no significant changes compared to prior EKG performed on 01/18/2025 at 12:40.
--- NOTE | 2025-03-10 22:30 | DI.CT_ITS ---
Exam(s) CT HEAD WO EXAM: CT HEAD WO CLINICAL HISTORY: AMS. TECHNIQUE: Imaging Protocol: Axial computed tomography images with coronal and sagittal reformatted images were created and reviewed COMPARISON: CT HEAD WITHOUT CONTRAST from 03/30/2015 FINDINGS: There are no skull fractures. There is no fluid in the visualized paranasal sinuses. There is no evidence of intracranial hemorrhage, mass effect, or shift of midline structures. There are no extra-axial fluid collections. The ventricles are not enlarged or shifted and there is no blood within the ventricular system nor within the basal cisterns. There is asymmetric hypodensity in the anterior limb of the right internal capsule suspicious for nonhemorrhagic lacunar infarct.. However, this is unchanged from CT scan of 2015. no evidence of obvious new infarct. IMPRESSION: No acute intracranial findings on this noninfused CT scan of the brain. There is an nonacute lacunar infarct in the anterior limb of the right internal capsule which was evident on prior CT scan of March 2015. Preliminary virtual Radiology report was reviewed. RADIATION DOSE DELIVERED: 788.15mGy.cm Total DLP DATA REPOSITORY: All CT scans at this facility are submitted to the National Radiology Data Registry (NRDR) Dose Index Registry (DIR) with the [employer] (ACR). RADIATION OPTIMIZATION: All CT scans at this facility use at least one of these dose optimization techniques: automated exposure control; mA and/or kV adjustment per patient size (includes targeted exams where dose is matched to clinical indication); or iterative reconstruction.
[2025-03-10] MEDS: Ondansetron 4 MG/2 ML VIAL (22:32)
[2025-03-10 23:11] LABS: Abs Immature Grans 0.02 10^3/uL (0.0-0.06); HCT 35.4 % (36.0-46.0); HGB 11.5 g/dL (11.2-15.7); Immature Grans % 0.3 %; MCH 31.9 pg (27.0-33.0); MCHC 32.5 % (32.0-36.0); MCV 98 fL (80-95); MPV 9.4 fL (8.0-11.0); Platelet Count 237 10^3/uL (130-400); RBC 3.60 10^6/uL (3.93-5.22); RDW 14.9 % (11.7-14.6); RDW-SD 54.2 fL; WBC 6.49 10^3/uL (4.4-10.8)
[2025-03-10 23:26] LABS: Ammonia < 10 umol/L (11-32)
[2025-03-10 23:27] LABS: ALT 27 U/L (14-59); AST 30 U/L (15-37); Albumin 3.6 g/dL (3.4-5.0); Alkaline Phosphatase 75 U/L (46-116); Anion Gap 6.2 mmol/L (3-11); BUN 13 mg/dL (7-18); Bilirubin, Total 0.4 mg/dL (0.2-1.0); CO2 32.8 mmol/L (21.0-32.0); Calcium 8.9 mg/dL (8.5-10.1); Chloride 104 mmol/L (98-107); Estimated GFR 90.70 (mL/min/1.73m2); Glucose 123 mg/dL (74-106); Magnesium 1.6 mg/dL (1.8-2.4); Potassium 3.7 mmol/L (3.5-5.1); Sodium 143 mmol/L (136-145); Total Protein 6.9 g/dL (6.4-8.2)
--- NOTE | 2025-03-10 23:30 | DI.CT_ITS ---
Exam(s) CT CHEST PE CTA EXAM: CT CHEST PE CTA CLINICAL HISTORY: CP, AMS, + d-dimer. TECHNIQUE: Imaging Protocol: CT angiography of the chest was performed using pulmonary embolus protocol. Multi planar reconstructions were performed. CONTRAST MATERIAL: Intravenous: Omnipaque 350 Contrast volume: 65 cc COMPARISON: CT CT CHEST WO from 07/26/2024 FINDINGS: CHEST: PULMONARY ARTERIES: There are no intraluminal filling defects to suggest acute pulmonary emboli. LUNGS: There are mild increased subpleural markings in the left lower lobe in the posterior and lateral basal segments. No associated pleural effusion. No adjacent rib destruction. The opposite-right lung is clear. There are no pleural effusions. MEDIASTINUM: There is no hilar nor mediastinal adenopathy. Visualized thyroid unremarkable. CARDIAC: Heart size is upper normal. There is no pericardial effusion.Caliber of the thoracic aorta is within normal limits. There is no significant shift of the interventricular septum. PARTIALLY VISUALIZED UPPERMOST ABDOMEN: No obvious findings OSSEOUS: No significant osseous lesions.T10 compression fracture appears unchanged from CT scan of July 2024.. IMPRESSION: 1. No evidence of acute pulmonary emboli. No evidence of pulmonary infarction.No pleural effusions. 2. However, there are mild increased subpleural markings in the left lower lobe posterior basal and lateral basal segments which were not evident on CT scan July 2024. Consistent therefore with mild infectious infiltrate. No associated pleural effusion. Preliminary virtual Radiology report was reviewed. Final report called by myself to physician yolyist 03/11/2025 at 9:02 a.m. RADIATION DOSE DELIVERED: 52.56mGy.cm Total DLP DATA REPOSITORY: All CT scans at this facility are submitted to the National Radiology Data Registry (NRDR) Dose Index Registry (DIR) with the [employer] (ACR). RADIATION OPTIMIZATION: All CT scans at this facility use at least one of these dose optimization techniques: automated exposure control; mA and/or kV adjustment per patient size (includes targeted exams where dose is matched to clinical indication); or iterative reconstruction.
--- NOTE | 2025-03-10 23:33 | DI.VRAD_ITS ---
PROCEDURE INFORMATION: Exam: CT Head Without Contrast Exam date and time: 03/10/2025 11:12 PM Age: 74 years old Clinical indication: Altered mental status/memory loss; Confusion or disorientation; AMS TECHNIQUE: Imaging protocol: Computed tomography of the head without contrast. Radiation optimization: All CT scans at this facility use at least one of these dose optimization techniques: automated exposure control; mA and/or kV adjustment per patient size (includes targeted exams where dose is matched to clinical indication); or iterative reconstruction. COMPARISON: No relevant prior studies available. FINDINGS: Brain: There is no acute intracranial hemorrhage, mass effect or midline shift. No large acute territorial infarct identified. There are patchy regions of hypodensity in the periventricular and subcortical white matter, likely on the basis of chronic microvascular ischemic disease. Cerebral ventricles: No ventriculomegaly. Paranasal sinuses: Visualized sinuses are unremarkable. No fluid levels. Mastoid air cells: Visualized mastoid air cells are well aerated. Bones: Unremarkable. No acute fracture. Soft tissues: Unremarkable. IMPRESSION: No acute intracranial hemorrhage, mass effect or midline shift. Dictated and Authenticated by: Lea De Anda MD. Orderin Dylan Henry MD
[2025-03-10 23:36] LABS: D-Dimer 885 ng/mlFEU (<500)
[2025-03-10] MEDS: Normal Saline 500 ML IV (23:39)
[2025-03-10 23:48] LABS: TSH (W/Ref FT4) 0.95 uIU/mL (0.36-3.74); Troponin I 7 ng/L (<or=51)
[2025-03-10 23:56] LABS: Glucose Negative (Negative)
[2025-03-11] VITALS (38 sets, daily range): BP systolic 104–136; BP diastolic 59–73; PULSE 61–74; RESP 14–31; TEMP 36.2–36.5; O2SAT 89–98
[2025-03-11 00:02] LABS: C & S Indicated? No; WBC 0-2 HPF (0-5)
[2025-03-11] MEDS: MAGNESIUM SULFATE 2 GM/50 ML BAG IV_INF (00:02)
[2025-03-11 00:12] LABS: Cannabinoids THC Positive (Negative); METHADONE URINE SCREEN Negative (Negative)
[2025-03-11] MEDS: Omnipaque 350 MG/ML 100 ML BTL IJ (00:24)
[2025-03-11] MEDS: Normal Saline - Diluent 50 ML VIAL IJ (00:25)
[2025-03-11] MEDS: Normal Saline Flush 10 ML SYR IVP ×2 (00:25→09:02)
[2025-03-11 00:34] LABS: Troponin I 8 ng/L (<or=51)
--- NOTE | 2025-03-11 01:16 | DI.VRAD_ITS ---
PROCEDURE INFORMATION: Exam: CTA Chest With Contrast Exam date and time: 03/11/2025 12:37 AM Age: 74 years old Clinical indication: Pain and abnormal findings; Abnormal diagnostic tests; Elevated d-dimer; Chest pain, elevated dimer, AMS TECHNIQUE: Imaging protocol: Computed tomographic angiography of the chest with contrast. Exam focused on the arteries. 3D rendering (Not supervised by radiologist): MIP and/or 3D reconstructed images were created by the technologist. Radiation optimization: All CT scans at this facility use at least one of these dose optimization techniques: automated exposure control; mA and/or kV adjustment per patient size (includes targeted exams where dose is matched to clinical indication); or iterative reconstruction. Contrast material: OMNIPAQUE 350; Contrast volume: 65 ml; Contrast route: INTRAVENOUS (IV); COMPARISON: CT CHEST WO 07/26/2024 4:02 PM FINDINGS: Pulmonary arteries: Normal. No pulmonary emboli. Aorta: Unremarkable. No aortic aneurysm. No aortic dissection. Lungs: Unremarkable. No consolidation. No masses. Pleural spaces: Unremarkable. No pneumothorax. No pleural effusion. Heart: Unremarkable. No cardiomegaly. No pericardial effusion. Lymph nodes: Unremarkable. No enlarged lymph nodes. Bones/joints: Chronic appearing moderate compression of the T10 vertebral body. Mild multilevel degenerative disc changes throughout the lower thoracic spine. No acute fracture. Soft tissues: Unremarkable. IMPRESSION: No evidence of pulmonary embolus or other acute abnormality in the chest. Chronic findings as noted. Dictated and Authenticated by: Jw Goodwin MD. Orderin Dylan Henry MD
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
--- NOTE | 2025-03-11 03:21 | W.PC.ACHO ---
Registration Status: REG ER Primary Language: Preferred Language: Mongolian ED Information & Data Chief Complaint AMS/LOC 03/11/25 01:58 Chief Complaint AMS/LOC 03/10/25 22:08 Triage Note was outside for a few hours 03/10/25 22:08 today, went home and felt lethargic and vomited x1. since then has mild improvement but feeling Shakey and weak. BS 142. axox4. 500ml bolus and now more alert Medical / Surgical History (Last Reviewed 03/10/25 @ 22:24 by Carl Richardson MD) Dyslipidemia Chronic obstructive pulmonary disease Tobacco use disorder (09/03/16) Opioid abuse, unspecified (08/01/12) GERD (gastroesophageal reflux disease) DVT (deep venous thrombosis) Postmenopausal Osteoporosis Learning disability (Last Reviewed 03/10/25 @ 22:24 by Carl Richardson MD) colonoscopy (07/07/16) Tubal Ligation, Laparoscopic Transobturator tape & cystourethroscopy, 2010 [facility] chest tubes, 2006 (~2006) Left hip fx w/ repair (03/19/15) Hernia Repair, Incisional (12/01/05) Excisional biopsy mucosa of upper lip (02/26/16) Endoscopic Carpal Tunnel release (12/01/88) EGD, 2010 Biopsy of breast BSO, due to cysts Arthroplasty (08/12/15) Most Recent Vital Signs Temperature 37.3 C 03/10/25 22:21 Pulse 62 03/11/25 02:50 Pulse 62 03/11/25 02:50 Respiratory Rate 18 03/11/25 02:50 Respiratory Effort Normal, Non-Labored 03/11/25 01:58 Respiratory Depth Normal 03/11/25 01:58 Respiratory Pattern Normal 03/11/25 01:58 Blood Pressure 124/66 03/11/25 02:41 Blood Pressure Mean 83 03/11/25 02:41 Pulse Oximetry 92 03/11/25 02:50 Oxygen Delivery Method Nasal Cannula 03/10/25 22:21 Oxygen Flow Rate 2 03/10/25 22:21 Allergies latex Allergy (Severe, Verified 02/27/25 12:58) Rash naproxen Adverse Reaction (Intermediate, Verified 02/27/25 12:58) Nausea amitriptyline Adverse Reaction (Mild, Verified 02/27/25 12:58) Sedating 25mg strength aspirin Adverse Reaction (Mild, Verified 02/27/25 12:58) sticks in throat piroxicam Adverse Reaction (Mild, Verified 02/27/25 12:58) GI distress ropinirole HCl (From Requip) Adverse Reaction (Mild, Verified 02/27/25 12:58) dyskinesia? diclofenac Adverse Reaction (Unknown, Verified 02/27/25 12:58) GI Upset propranolol Adverse Reaction (Unknown, Verified 02/27/25 12:58) unknown Precautions Isolation Standard precaution 03/11/25 01:58 Active Medications Generic Name Dose Route Start Last Admin Trade Name Freq PRN Reason Stop Dose Admin Iohexol 100 ml 03/11/25 00:30 03/11/25 00:24 Omnipaque 350 Mg/Ml 100 Ml Btl IJ 04/10/25 23:59 65 ml DIRECTED MIGUEL Administration Sodium Chloride 0 ml 03/10/25 22:31 03/11/25 00:25 Normal Saline Flush 10 Ml Syr IVP 10 ml PRN PRN Administration Sodium Chloride 50 ml 03/11/25 00:30 03/11/25 00:25 Normal Saline - Diluent 50 Ml Vial IJ 50 ml .FOR DI USE MIGUEL Administration IV IV Catheter Type [Left Saline Lock Antecubital] IV Catheter Gauge [Left 18 Antecubital] IV Catheter Gauge [Right Wrist 20 ] Diet Orders Category Date Time Status Regular/Normal [DIET] Nutrition 03/11/25 Breakfast Active Diagnostics 03/11/25 03/11/25 03/10/25 Range/Units 01:32 00:00 23:45 WBC (4.4-10.8) 10^3/uL RBC (3.93-5.22) 10^6/uL Hgb (11.2-15.7) g/dL Hct (36.0-46.0) % MCV (80-95) fL MCH (27.0-33.0) pg MCHC (32.0-36.0) % RDW (11.7-14.6) % Plt Count (130-400) 10^3/uL MPV (8.0-11.0) fL Immature Gran % % Neutrophils % % Lymphocytes % % Monocytes % % Eosinophils % % Basophils % % Nucleated RBC % (0.0-0.3) % Absolute Neutrophils (1.2-6.7) 10^3/uL Absolute Lymphocytes (1.2-3.4) 10^3/uL Absolute Monocytes (0.1-0.8) 10^3/uL Absolute Eosinophils (0.0-0.7) 10^3/uL Absolute Basophils (0.0-0.2) 10^3/uL D-Dimer (<500) ng/mlFEU Sodium (136-145) mmol/L Potassium (3.5-5.1) mmol/L Chloride (98-107) mmol/L Carbon Dioxide (21.0-32.0) mmol/L Anion Gap (3-11) mmol/L BUN (7-18) mg/dL Creatinine (0.55-1.02) mg/dL Est GFR (CKD-EPI 2020) (mL/min/1.73m2) Glucose (74-106) mg/dL Calcium (8.5-10.1) mg/dL Magnesium (1.8-2.4) mg/dL Total Bilirubin (0.2-1.0) mg/dL AST (15-37) U/L ALT (14-59) U/L Alkaline Phosphatase (46-116) U/L Ammonia (11-32) umol/L Troponin I Cancelled 8 (<or=51) ng/L Total Protein (6.4-8.2) g/dL Albumin (3.4-5.0) g/dL TSH (0.36-3.74) uIU/mL Urine Color Yellow (Yellow) Urine Clarity Clear (Clear) Urine pH 6.0 (5-8) Ur Specific Marion >= 1.030 H (1.005-1.025) Urine Protein Trace (Neg-Trace) mg/dL Urine Ketones Negative (Negative) mg/dL Urine Blood Trace-intact H (Negative) Urine Nitrite Negative (Negative) Urine Bilirubin Negative (Negative) Urine Urobilinogen 0.2 (Up to 0.2) mg/dL Ur Leukocyte Esterase Negative (Negative) Urine RBC 5-10 H (0-2) HPF Urine WBC 0-2 (0-5) HPF Ur Epithelial Cells Few (Negative) HPF Urine Crystals Negative (Negative) HPF Urine Bacteria Few (Negative) HPF Urine Casts Negative (Negative) LPF Urine Mucus Moderate (Negative) Ur Culture Indicated? No Urine Glucose Negative (Negative) mg/dL Urine Opiates Screen Negative (Negative) Urine Methadone Screen Negative (Negative) Ur Barbiturates Screen Negative (Negative) Ur Tricyclics Screen Negative (Negative) Ur Amphetamines Screen Negative (Negative) U Benzodiazepines Scrn Negative (Negative) Urine Cocaine Screen Negative (Negative) Ur THC Screen Positive A (Negative) Ethyl Alcohol (<10) mg/dL 03/10/25 Range/Units 23:00 WBC 6.49 (4.4-10.8) 10^3/uL RBC 3.60 L (3.93-5.22) 10^6/uL Hgb 11.5 (11.2-15.7) g/dL Hct 35.4 L (36.0-46.0) % MCV 98 H (80-95) fL MCH 31.9 (27.0-33.0) pg MCHC 32.5 (32.0-36.0) % RDW 14.9 H (11.7-14.6) % Plt Count 237 (130-400) 10^3/uL MPV 9.4 (8.0-11.0) fL Immature Gran % 0.3 % Neutrophils % 81.2 % Lymphocytes % 10.3 % Monocytes % 6.6 % Eosinophils % 1.1 % Basophils % 0.5 % Nucleated RBC % 0.0 (0.0-0.3) % Absolute Neutrophils 5.27 (1.2-6.7) 10^3/uL Absolute Lymphocytes 0.67 L (1.2-3.4) 10^3/uL Absolute Monocytes 0.43 (0.1-0.8) 10^3/uL Absolute Eosinophils 0.07 (0.0-0.7) 10^3/uL Absolute Basophils 0.03 (0.0-0.2) 10^3/uL D-Dimer 885 H (<500) ng/mlFEU Sodium 143 (136-145) mmol/L Potassium 3.7 (3.5-5.1) mmol/L Chloride 104 (98-107) mmol/L Carbon Dioxide 32.8 H (21.0-32.0) mmol/L Anion Gap 6.2 (3-11) mmol/L BUN 13 (7-18) mg/dL Creatinine 0.7 (0.55-1.02) mg/dL Est GFR (CKD-EPI 2020) 90.70 (mL/min/1.73m2) Glucose 123 H (74-106) mg/dL Calcium 8.9 (8.5-10.1) mg/dL Magnesium 1.6 L (1.8-2.4) mg/dL Total Bilirubin 0.4 (0.2-1.0) mg/dL AST 30 (15-37) U/L ALT 27 (14-59) U/L Alkaline Phosphatase 75 (46-116) U/L Ammonia < 10 L (11-32) umol/L Troponin I 7 (<or=51) ng/L Total Protein 6.9 (6.4-8.2) g/dL Albumin 3.6 (3.4-5.0) g/dL TSH 0.95 (0.36-3.74) uIU/mL Urine Color (Yellow) Urine Clarity (Clear) Urine pH (5-8) Ur Specific Marion (1.005-1.025) Urine Protein (Neg-Trace) mg/dL Urine Ketones (Negative) mg/dL Urine Blood (Negative) Urine Nitrite (Negative) Urine Bilirubin (Negative) Urine Urobilinogen (Up to 0.2) mg/dL Ur Leukocyte Esterase (Negative) Urine RBC (0-2) HPF Urine WBC (0-5) HPF Ur Epithelial Cells (Negative) HPF Urine Crystals (Negative) HPF Urine Bacteria (Negative) HPF Urine Casts (Negative) LPF Urine Mucus (Negative) Ur Culture Indicated? Urine Glucose (Negative) mg/dL Urine Opiates Screen (Negative) Urine Methadone Screen (Negative) Ur Barbiturates Screen (Negative) Ur Tricyclics Screen (Negative) Ur Amphetamines Screen (Negative) U Benzodiazepines Scrn (Negative) Urine Cocaine Screen (Negative) Ur THC Screen (Negative) Ethyl Alcohol < 3.0 (<10) mg/dL Intake and Output - 24 Hour Total 03/10/25 22:05 thru 03/11/25 01:58 Intake Total 550 Output Total 100 Balance 450 Weight 62.596 kg Intake: IV 550 Output: Urine 100 Other: Urine Color Yellow Urine Appearance Clear Falls Risk Assessment History of Falls No History 03/11/25 02:00 Contributing Factors Confusion 03/11/25 02:00 Ambulatory Aids Independent 03/11/25 02:00 Tubes/Lines None 03/11/25 02:00 Gait Evaluation No gait disturbance 03/11/25 02:00 Cognition Cognitive impairment 03/11/25 02:00 Fall Total Score 18 03/11/25 02:00 Level of Risk Standard/Low Risk 03/11/25 02:00 Problems (Last Reviewed 03/10/25 @ 22:24 by Carl Richardson MD) Mental status alteration (Acute) v v v v v v v v v Sending and/or Receiving Nurses: Please use comment section below to note any information pertinent to the patient hand-off not included above. Information / Comments: In heat today for a few hours, became confused and lethargic, EMS called, confused and weak, 500 ml NS bolus, #20 right wrist, BGL okay, episodes of starring off, head CT negative, Chest CT negative, vague chest pain, troponin negative, continues to be altered and confused and unable to ambulate. HX of COPD, currently on oxygen (80% RA), 95% 0.5L NC, straight cath for small amount, hasnt got OOB in ER. #18 LAc, magnesium given, 4mg zofran, additional 500ml NS Report received from: Parveen @ [phone]
[2025-03-11] MEDS: Enoxaparin 40 MG/0.4 ML SYR SC (03:30)
[2025-03-11] MEDS: Lactated Ringers 1,000 ML 125 ML IV (06:09)
[2025-03-11] MEDS: Mirabegron 25 MG TABCR PO (08:57)
[2025-03-11] MEDS: Clotrimazole 1% 15 GM TUBE TP (08:57)
[2025-03-11] MEDS: Pramipexole 0.25 MG TAB PO (08:57)
[2025-03-11] MEDS: Sertraline 25 MG TAB PO (08:57)
[2025-03-11] MEDS: Cholecalciferol (Vitamin D3) 1,000 UNIT TAB 2000 UNITS PO (08:57)
[2025-03-11] MEDS: Loratidine 10 MG TAB PO (08:57)
[2025-03-11] MEDS: Mupirocin 2% Oint. 22 GM TUBE TP (08:58)
--- NOTE | 2025-03-11 09:07 | TELEP.MEDREC ---
Date of service: 03/11/25 [facility] 09[facility] Allergies: latex Allergy (Severe, Verified 02/27/25 12:58) Rash naproxen Adverse Reaction (Intermediate, Verified 02/27/25 12:58) Nausea amitriptyline Adverse Reaction (Mild, Verified 02/27/25 12:58) Sedating aspirin Adverse Reaction (Mild, Verified 02/27/25 12:58) sticks in throat piroxicam Adverse Reaction (Mild, Verified 02/27/25 12:58) GI distress ropinirole HCl (From Requip) Adverse Reaction (Mild, Verified 02/27/25 12:58) dyskinesia? diclofenac Adverse Reaction (Unknown, Verified 02/27/25 12:58) GI Upset propranolol Adverse Reaction (Unknown, Verified 02/27/25 12:58) unknown Interview Person Interviewed: patient Quality Quality of Interview/Accuracy of Medication List: Poor Sources Sources used to compile medication list: [employer] Medication List and Retail Pharmacy Changes made to Home Medication List: ADDITIONS: None DELETIONS: None CHANGES: None Additional Notes Additional Notes: Patient was a poor historian, she did not know the names of her medications and was unable to confirm her list. I used her pharmacy fill history to confirm the medications that were recently filled and appear to be active. I was unable to confirm the medications that have no fill history, are OTC, or have (calcium, vitamin D, clobetasol ointment, clotrimazole, estradiol cream, ferrous sulfate, loratadine, sertraline). Recommended Changes Attestation: The home medication list is now updated to the best of my knowledge and is ready to be reconciled by the provider. Please contact the [facility] Medication Reconciliation Pharmacist at for any questions.
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
--- NOTE | 2025-03-11 14:45 | CMDISCH_ITS ---
Date of service: 03/11/25 Time of Service: 11:00 LACE Index Scoring Tool Questions: Length of Stay (in days): 1 Was the patient admitted via the E.D.?: Yes Comorbidities: Chronic Pulmonary Disease E.D. Visits: 3 Answers: Total Score: 9 Risk of Readmission: Low Risk Care Management Discharge Plan Reason for Hospitalization: altered mental status, pneumonia Discharge Plan: Destini was admitted through the ED yesterday due to altered mental status. She had been working in her garden and became dehydrated. She was also found to have a pneumonia. Destini was feeling much better this morning, and requested discharge home. She was discharged home with no new services, and was transported by her granddaughter, who will be staying with her for a bit. Destini has a pulmonary visit tomorrow, and she will also f/u with her PCP. Patient/Family Education Needs: Review of discharge instructions, activity, limitations, and discuss Ask me 3. SDOH Health Related Social Needs: Health related social needs inadequate housing transpo insecurity material hardship house/econ circumstance daily activities Health related social needs details would like meals d elivered Health related social needs details: would like meals delivered
== END 2025-03-11 13:47 | disposition home or self-care (01) ==
LOC: ER 03-11 02:38 → MS 03-11 04:11
PROVIDERS: Admitting Provider Hospitalist; Emergency Provider Emergency Medicine; PCP Nurse Practitioner; Responsible Provider Family Medicine; Visit Provider Hospitalist
DX: T40.711A Poisoning by cannabis, accidental (unintentional), initial encounter (principal); J18.1 Lobar pneumonia, unspecified organism; R41.0 Disorientation, unspecified; J44.1 Chronic obstructive pulmonary disease with (acute) exacerbation; Z79.899 Other long term (current) drug therapy; R53.1 Weakness; R11.2 Nausea with vomiting, unspecified; R07.89 Other chest pain; E83.42 Hypomagnesemia; F12.90 Cannabis use, unspecified, uncomplicated; M25.552 Pain in left hip; M48.061 Spinal stenosis, lumbar region without neurogenic claudication; M70.61 Trochanteric bursitis, right hip; Z87.891 Personal history of nicotine dependence; N32.81 Overactive bladder; K22.10 Ulcer of esophagus without bleeding; K29.70 Gastritis, unspecified, without bleeding; K44.9 Diaphragmatic hernia without obstruction or gangrene; Z79.01 Long term (current) use of anticoagulants; E78.5 Hyperlipidemia, unspecified; M81.0 Age-related osteoporosis without current pathological fracture; Z86.718 Personal history of other venous thrombosis and embolism; F11.11 Opioid abuse, in remission; Z96.642 Presence of left artificial hip joint; R79.1 Abnormal coagulation profile; E86.0 Dehydration
CPT/HCPCS: 00123; 36415; 71275; 80053; 80307; 93005; 96361; 96365; 96366; 96372; 96375; 99285; J1650; 70450; 80320; 81003; 81015; 82140; 83735; 84443; 84484; 85025; 85379; 93010; 94760; 99235; G0378; J2405; J3475; J3490

== ENCOUNTER 2025-03-15 11:04 | Outpatient (CLI) | payer MEDICARE, SELFPAY ==
--- NOTE | 2025-03-15 11:00 | DI.US_ITS ---
Exam(s) US LOWER EXTREMITY VENOUS LT EXAM: US LOWER EXTREMITY VENOUS LT CLINICAL HISTORY: leg swelling pain, enlarged calf,? dvt,m79.89 TECHNIQUE: Grayscale, color, and doppler imaging of the deep venous system of the left lower extremity was performed. COMPARISON: US POCUS EXAM from 11/24/2023 FINDINGS: This is an abnormal-positive study. There is intraluminal thrombus evident in the distal femoral vein in the lower thigh and continuous through the popliteal vein into both posterior tibial veins in the calf, involving the entire length of the posterior tibial veins. Saphenous vein is patent. IMPRESSION: Positive study for the presence of DVT. There is intraluminal thrombus evident within the distal femoral vein in the lower thigh and the intraluminal thrombus continues distally through the popliteal vein and into and including both posterior tibial veins of the calf. DATA REPOSITORY:
== END 2025-03-15 11:24 ==
LOC: DI 11:04
PROVIDERS: PCP Nurse Practitioner; Visit Provider Nurse Practitioner Family
DX: M79.89 Other specified soft tissue disorders (principal)
CPT/HCPCS: 93971

== ENCOUNTER 2025-03-15 12:00 | Outpatient (CLI) | payer MEDICARE, SELFPAY ==
[2025-03-15 13:21] LABS: NT-proBNP 266 pg/mL (<300)
== END 2025-03-15 12:01 | disposition home or self-care (01) ==
LOC: LBO 12:01
PROVIDERS: PCP Nurse Practitioner; Visit Provider Nurse Practitioner Family
DX: J44.1 Chronic obstructive pulmonary disease with (acute) exacerbation (principal); R60.9 Edema, unspecified
CPT/HCPCS: 36415; 83880

== ENCOUNTER 2025-03-15 12:45 | Emergency (ER) | payer MEDICARE, SELFPAY ==
[2025-03-15 13:07] VITALS: BP 132/87; PULSE 87; RESP 20; TEMP 36.9; O2SAT 89
[2025-03-15 13:49] VITALS: O2SAT 92
[2025-03-15 14:37] VITALS: BP 144/83; PULSE 78; RESP 20; O2SAT 91
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
[2025-03-15] MEDS: Rivaroxaban 15 MG TABLET PO (15:02)
[2025-03-15 17:42] VITALS: RESP 20; O2SAT 91
== END 2025-03-15 15:11 | disposition home or self-care (01) ==
PROVIDERS: Emergency Provider Student in an Organized Health Care Education/Training Program; PCP Nurse Practitioner
DX: I82.402 Acute embolism and thrombosis of unspecified deep veins of left lower extremity (principal); R60.0 Localized edema; M79.89 Other specified soft tissue disorders; Z59.10 Inadequate housing, unspecified; Z59.87 Material hardship due to limited financial resources, not elsewhere classified; Z59.89 Other problems related to housing and economic circumstances; Z59.82 Transportation insecurity
CPT/HCPCS: 99283 ×2; 80048; 85025; 85610

== ENCOUNTER 2025-03-16 11:14 | Emergency (ER) | payer MEDICARE, SELFPAY ==
[2025-03-16 11:21] VITALS: BP 126/70; PULSE 80; RESP 18; TEMP 37.2; O2SAT 90
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
[2025-03-16 12:17] LABS: Abs Immature Grans 0.06 10^3/uL (0.0-0.06); HCT 42.1 % (36.0-46.0); HGB 13.8 g/dL (11.2-15.7); Immature Grans % 0.4 %; MCH 31.9 pg (27.0-33.0); MCHC 32.8 % (32.0-36.0); MCV 97 fL (80-95); MPV 9.9 fL (8.0-11.0); Platelet Count 262 10^3/uL (130-400); RBC 4.33 10^6/uL (3.93-5.22); RDW 14.7 % (11.7-14.6); RDW-SD 52.7 fL; WBC 15.70 10^3/uL (4.4-10.8)
[2025-03-16] MEDS: Ondansetron 4 MG/2 ML VIAL IVP (12:25)
[2025-03-16] MEDS: ACETAMINOPHEN 1,000 MG/100 ML BAG 400 MG IVPB (12:26)
--- NOTE | 2025-03-16 12:26 | DI.CT_ITS ---
Exam(s) CT ABDOMEN PELVIS W EXAM: CT ABDOMEN PELVIS W CLINICAL HISTORY: epigastric pain. TECHNIQUE: Imaging Protocol: Axial computed tomography images with coronal and sagittal reformatted images were created and reviewed IMAR soft for implied due to artifact from left hip prosthesis. CONTRAST MATERIAL: Intravenous: Omnipaque 350 Contrast volume:75 ml Oral: yes no COMPARISON: CT CT CHEST/ABD/PEL W from 04/23/2024 FINDINGS: ABDOMEN and PELVIS: Exam is mildly limited by motion. Lung Bases: No acute findings. Mild emphysematous changes. Liver: Normal density. No suspicious mass. Gallbladder and biliary tract: No radiodense calculus. No wall thickening or pericholecystic fluid. No biliary dilation. Pancreas: Normal density. No abnormal calcifications or inflammatory process. No evidence of mass. Spleen: Normal. Kidneys: Normal size, contour and axis. No radiodense stones. No obstructive uropathy. No suspicious masses seen. Adrenal glands: No masses seen. Vasculature: Abdominal aorta non-dilated. Moderate atherosclerotic changes. Soft tissues: Unremarkable. Bladder: Diffuse bladder wall thickening with surrounding inflammation in the fat, consistent with cystitis. No visible mass or stone. Bowel: There is a question of mild wall thickening of the distal esophagus. The stomach is empty and not well evaluated. There is also motion artifact in this area. Proximal small bowel not well evaluated due to artifact. No obstruction. Appendix normal. Sigmoid diverticulosis. No evidence of diverticulitis. Moderate quantity of stool. Peritoneal cavity: No ascites. No focal collection. No mesenteric inflammatory response. No free air. Bones: Left hip prosthesis. Stable mild compression fracture of the anterior superior endplate of T12. Reproductive organs: Unremarkable. Lymph nodes: No pathologically enlarged lymph nodes. IMPRESSION:: Question of mild wall thickening of the distal esophagus. Stomach and proximal small bowel not well evaluated due to motion. Marked bladder wall thickening and surrounding inflammation, consistent with cystitis. No calcifications are identified. The bladder is mildly obscured by artifact. The preliminary [facility] report was reviewed. RADIATION DOSE DELIVERED: Total DLP DATA REPOSITORY: All CT scans at this facility are submitted to the National Radiology Data Registry (NRDR) Dose Index Registry (DIR) with the [employer] (A[employer]). RADIATION OPTIMIZATION: All CT scans at this facility use at least one of these dose optimization techniques: automated exposure control; mA and/or kV adjustment per patient size (includes targeted exams where dose is matched to clinical indication); or iterative reconstruction.
[2025-03-16 12:59] LABS: ALT 23 U/L (14-59); AST 24 U/L (15-37); Albumin 3.5 g/dL (3.4-5.0); Alkaline Phosphatase 83 U/L (46-116); Anion Gap 6.5 mmol/L (3-11); BUN 9 mg/dL (7-18); Bilirubin, Total 0.7 mg/dL (0.2-1.0); CO2 31.5 mmol/L (21.0-32.0); Calcium 8.9 mg/dL (8.5-10.1); Chloride 102 mmol/L (98-107); Estimated GFR 98.36 (mL/min/1.73m2); Glucose 92 mg/dL (74-106); Lipase 13 U/L (<78); Magnesium 1.9 mg/dL (1.8-2.4); Potassium 4.3 mmol/L (3.5-5.1); Sodium 140 mmol/L (136-145); Total Protein 7.1 g/dL (6.4-8.2)
[2025-03-16 13:04] LABS: Troponin I 8 ng/L (<or=51)
[2025-03-16] MEDS: Normal Saline - Diluent 50 ML VIAL IJ (13:14)
[2025-03-16] MEDS: Omnipaque 350 MG/ML 100 ML BTL IJ (13:16)
[2025-03-16] MEDS: MYLANTA 30 ML, LIDOCAINE 2% VISCOUS UD 15 ML PO (14:58)
--- NOTE | 2025-03-16 15:02 | DI.VRAD_ITS ---
PROCEDURE INFORMATION: Exam: CT Abdomen And Pelvis With Contrast Exam date and time: 03/16/2025 1:11 PM Age: 74 years old Clinical indication: Other: Epigastric pain TECHNIQUE: Imaging protocol: Computed tomography of the abdomen and pelvis with contrast. Radiation optimization: All CT scans at this facility use at least one of these dose optimization techniques: automated exposure control; mA and/or kV adjustment per patient size (includes targeted exams where dose is matched to clinical indication); or iterative reconstruction. Contrast material: OMNIPAQUE 350; Contrast volume: 75 ml; Contrast route: INTRAVENOUS (IV); COMPARISON: CT CHEST/ABD/PEL W 04/23/2024 9:10 AM FINDINGS: Liver: Normal. No mass. Gallbladder and biliary ducts: Normal. No calcified stones. No ductal dilation. Pancreas: Normal. No ductal dilation. Spleen: Normal. No splenomegaly. Adrenal glands: Normal. No mass. Kidneys and ureters: Normal. No hydronephrosis. Stomach and bowel: Wall thickening at the stomach and distal esophagus suggestive of a nonspecific gastritis and esophagitis. No evidence of intestinal perforation or obstruction. Appendix: No evidence of appendicitis. Intraperitoneal space: Unremarkable. No free air. No significant fluid collection. Vasculature: Aorta demonstrates mild atherosclerotic calcification. No abdominal aortic aneurysm. Lymph nodes: Unremarkable. No enlarged lymph nodes. Urinary bladder: Diffuse bladder wall thickening with surrounding edematous change suggestive of a nonspecific cystitis. Reproductive: Unremarkable as visualized. Bones/joints: Previous left hip replacement. Soft tissues: Unremarkable. IMPRESSION: 1. Diffuse bladder wall thickening with surrounding edematous change suggestive of a nonspecific cystitis. 2. Wall thickening at the stomach and distal esophagus suggestive of a nonspecific gastritis and esophagitis. Dictated and Authenticated by: Sergey Zavala MD. [facility] MD
[2025-03-16 15:16] LABS: Troponin I 11 ng/L (<or=51)
[2025-03-16] MEDS: Pantoprazole 40 MG VIAL IVP (15:22)
[2025-03-16 16:34] VITALS: BP 127/69; PULSE 64; RESP 16; O2SAT 92
== END 2025-03-16 16:34 | disposition home or self-care (01) ==
PROVIDERS: Emergency Provider Emergency Medicine; PCP Nurse Practitioner
DX: K20.90 Esophagitis, unspecified without bleeding (principal); E78.5 Hyperlipidemia, unspecified; J44.9 Chronic obstructive pulmonary disease, unspecified; Z86.718 Personal history of other venous thrombosis and embolism; Z79.01 Long term (current) use of anticoagulants; Z87.891 Personal history of nicotine dependence
CPT/HCPCS: 36415; 80053; 83690; 96374; 96375; 99285; 74177; 83735; 84484; 85025; J0131; J2405; J2470; J3490

== ENCOUNTER 2025-04-29 15:34 | Emergency (ER) | payer MEDICARE, SELFPAY ==
[2025-04-29 15:44] VITALS: BP 105/71; PULSE 81; RESP 20; TEMP 36.6; O2SAT 92
[2025-04-29 16:53] VITALS: RESP 16
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
--- NOTE | 2025-04-29 17:15 | RT.EKG_ITS ---
APPROVED REPORT Exam: Resting ECG Reason for Exam: intermittent chest pain Patient Location: E HR:67 bpm ECG Measurements Heart Rate 67 AXIS NC 138 P 28 QRSd 96 QRS 52 QT 418 T 66 QTc 441 Conclusion Sinus rhythm, rate 67 No interval abnormalities No STEMI No significant changes from priors
[2025-04-29 18:36] LABS: Abs Immature Grans 0.01 10^3/uL (0.0-0.06); HCT 37.3 % (36.0-46.0); HGB 12.0 g/dL (11.2-15.7); Immature Grans % 0.1 %; MCH 30.8 pg (27.0-33.0); MCHC 32.2 % (32.0-36.0); MCV 96 fL (80-95); MPV 9.7 fL (8.0-11.0); Platelet Count 242 10^3/uL (130-400); RBC 3.89 10^6/uL (3.93-5.22); RDW 12.6 % (11.7-14.6); RDW-SD 44.1 fL; WBC 6.96 10^3/uL (4.4-10.8)
[2025-04-29 19:03] LABS: ALT 21 U/L (14-59); AST 22 U/L (15-37); Albumin 4.0 g/dL (3.4-5.0); Alkaline Phosphatase 65 U/L (46-116); Anion Gap 5.4 mmol/L (3-11); BUN 8 mg/dL (7-18); Bilirubin, Total 0.3 mg/dL (0.2-1.0); CO2 34.6 mmol/L (21.0-32.0); Calcium 9.5 mg/dL (8.5-10.1); Chloride 104 mmol/L (98-107); D-Dimer 673 ng/mlFEU (<500); Estimated GFR 94.13 (mL/min/1.73m2); Glucose 78 mg/dL (74-106); NT-proBNP 259 pg/mL (<300); Potassium 3.2 mmol/L (3.5-5.1); Sodium 144 mmol/L (136-145); Total Protein 7.4 g/dL (6.4-8.2); Troponin I 8 ng/L (<or=51)
[2025-04-29] MEDS: Rivaroxaban 15 MG TABLET PO (19:51)
[2025-04-29 19:56] VITALS: BP 151/82; RESP 20; TEMP 36.2; O2SAT 93
== END 2025-04-29 20:03 | disposition home or self-care (01) ==
PROVIDERS: Emergency Provider Physician Assistant; PCP Nurse Practitioner
DX: I82.402 Acute embolism and thrombosis of unspecified deep veins of left lower extremity (principal); R22.42 Localized swelling, mass and lump, left lower limb; M79.605 Pain in left leg; Z59.10 Inadequate housing, unspecified; Z59.82 Transportation insecurity; Z59.87 Material hardship due to limited financial resources, not elsewhere classified; Z59.89 Other problems related to housing and economic circumstances
CPT/HCPCS: 99284 ×2; 80053; 93005; 83880; 84484; 85025; 85379; 93010

== ENCOUNTER 2025-04-30 09:41 | Outpatient (CLI) | payer MEDICARE, SELFPAY ==
--- NOTE | 2025-04-30 07:30 | DI.US_ITS ---
Exam(s) US LOWER EXTREMITY VENOUS LT EXAM: US LOWER EXTREMITY VENOUS LT CLINICAL HISTORY: L leg swelling, M78.89 SOFT TISSUE DISORDERS TECHNIQUE: Left lower extremity venous ultrasound performed using grayscale, color-flow, and spectral Doppler analysis. COMPARISON: US US LOWER EXTREMITY VENOUS LT from 03/15/2025 FINDINGS: There has been interval decrease in the size and extent of the thrombus in the left lower extremity since 03/15/2025. There is persistent nonocclusive thrombus seen in portions of the distal femoral vein, popliteal vein and posterior tibialis vein. There is no thrombus seen in the common femoral vein or proximal and mid femoral veins. The saphenofemoral junction is unremarkable. There is no evidence of a Resendez cyst. The soft tissues are unremarkable. IMPRESSION: Overall decrease in the size and extent of the thrombus seen in the left lower extremity. There is persistent nonocclusive thrombus present. DATA REPOSITORY:
== END 2025-04-30 10:01 ==
LOC: DI 09:41
PROVIDERS: PCP Nurse Practitioner; Visit Provider Physician Assistant
DX: M79.89 Other specified soft tissue disorders (principal)
CPT/HCPCS: 93971

== ENCOUNTER 2025-04-30 09:48 | Emergency (ER) | payer MEDICARE, SELFPAY ==
[2025-04-30 09:50] VITALS: BP 122/76; PULSE 65; RESP 15; TEMP 36.6; O2SAT 92
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
== END 2025-04-30 11:42 | disposition home or self-care (01) ==
PROVIDERS: Emergency Provider Physician Assistant; PCP Nurse Practitioner
DX: I82.402 Acute embolism and thrombosis of unspecified deep veins of left lower extremity (principal); Z59.10 Inadequate housing, unspecified; Z59.82 Transportation insecurity; Z59.87 Material hardship due to limited financial resources, not elsewhere classified; Z59.89 Other problems related to housing and economic circumstances
CPT/HCPCS: 99283 ×2

== ENCOUNTER → 2025-06-06 08:55 | Outpatient (BNVA) | payer MEDICARE, SELFPAY | PROVIDERS: Visit Provider Internal Medicine Pulmonary Disease | DX: J44.1 Chronic obstructive pulmonary disease with (acute) exacerbation (principal); J96.11 Chronic respiratory failure with hypoxia; I82.409 Acute embolism and thrombosis of unspecified deep veins of unspecified lower extremity; Z87.891 Personal history of nicotine dependence | CPT/HCPCS: 99214 ==

== ENCOUNTER 2025-09-04 11:15 | Emergency (ER) | payer MEDICARE, SELFPAY ==
--- NOTE | 2025-09-04 11:15 | RT.EKG_ITS ---
APPROVED REPORT Exam: Resting ECG Reason for Exam: Chest Pain Patient Location: E HR:75 bpm ECG Measurements Heart Rate 75 AXIS IL 113 P 43 QRSd 101 QRS 29 QT 400 T 65 QTc 447 Conclusion Sinus rhythm...normal P axis, V-rate 60- 99 Consider anterior infarct...Q >30mS in V2-V5
[2025-09-04 11:31] VITALS: BP 114/77; PULSE 86; RESP 20; O2SAT 97
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
[2025-09-04 12:15] VITALS: RESP 20
[2025-09-04 12:40] LABS: Abs Immature Grans 0.02 10^3/uL (0.0-0.06); HCT 38.4 % (36.0-46.0); HGB 12.7 g/dL (11.2-15.7); Immature Grans % 0.3 %; MCH 30.6 pg (27.0-33.0); MCHC 33.1 % (32.0-36.0); MCV 93 fL (80-95); MPV 10.1 fL (8.0-11.0); Platelet Count 211 10^3/uL (130-400); RBC 4.15 10^6/uL (3.93-5.22); RDW 13.5 % (11.7-14.6); RDW-SD 46.1 fL; WBC 7.53 10^3/uL (4.4-10.8)
[2025-09-04 13:12] LABS: Troponin I 5 ng/L (<35)
[2025-09-04 13:13] LABS: Troponin I 4 ng/L (<35)
[2025-09-04 13:13] LABS: COVID-19 PCR Negative (Negative); RSV PCR Negative (Negative)
[2025-09-04 13:14] LABS: ALT 14 U/L (10-49); AST 24 U/L (<34); Albumin 4.3 g/dL (3.2-5.0); Alkaline Phosphatase 68 U/L (46-116); Anion Gap 7.5 mmol/L (3-11); BUN 14 mg/dL (9-23); Bilirubin, Total 0.4 mg/dL (0.2-1.2); CO2 29.5 mmol/L (20.0-31.0); Calcium 10.0 mg/dL (8.3-10.6); Chloride 105 mmol/L (98-107); Glucose 84 mg/dL (74-106); Magnesium 1.8 mg/dL (1.6-2.6); Potassium 3.5 mmol/L (3.5-5.1); Sodium 142 mmol/L (136-145); Total Protein 7.4 g/dL (5.7-8.2)
--- NOTE | 2025-09-04 13:15 | DI.CT_ITS ---
Exam(s) CT CHEST PE CTA EXAM: CT CHEST PE CTA CLINICAL HISTORY: chest pain, cough, h/o dvt. TECHNIQUE: Imaging Protocol: Axial CT angiography was performed with multi- slice acquisition and multi-planar reconstructions as well as axial, coronal and sagittal MIP reconstructions. Computer aided detection (CAD) was utilized. CONTRAST MATERIAL: Intravenous: Omnipaque 350 Contrast volume:75 ml COMPARISON: CT CT CHEST PE CTA from 03/11/2025 FINDINGS: Pulmonary Arteries: No evidence of filling defect to suggest pulmonary emboli. Mediastinum and Sil: No dominant adenopathy or fluid collection. Pulmonary parenchyma: No consolidation or dominant measurable mass. Are are [id number] emphysematous changes, greater in the upper lobes. Pleura: No effusion or pneumothorax. Heart: The heart is not dilated. Minimal coronary artery calcifications are seen. Aorta: Thoracic aorta non-dilated. No dissection. Upper abdomen: No acute findings. Bones: Stable T10 compression fracture. Tubes, Catheters, and Lines: None Soft tissues: Unremarkable. IMPRESSION: No evidence of pulmonary embolism or other acute abnormality. Underlying emphysematous changes.. RADIATION DOSE DELIVERED: 71.87mGy.cm Total DLP DATA REPOSITORY: All CT scans at this facility are submitted to the National Radiology Data Registry (NRDR) Dose Index Registry (DIR) with the [employer] (A[employer]). RADIATION OPTIMIZATION: All CT scans at this facility use at least one of these dose optimization techniques: automated exposure control; mA and/or kV adjustment per patient size (includes targeted exams where dose is matched to clinical indication); or iterative reconstruction.
[2025-09-04] MEDS: Normal Saline - Diluent 50 ML VIAL IJ (14:23)
[2025-09-04] MEDS: Normal Saline Flush 10 ML SYR IVP (14:24)
[2025-09-04] MEDS: Omnipaque 350 MG/ML 100 ML BTL IJ (14:24)
[2025-09-04 15:17] VITALS: BP 147/77; PULSE 81; RESP 16; O2SAT 93
== END 2025-09-04 15:20 | disposition home or self-care (01) ==
PROVIDERS: Emergency Provider Student in an Organized Health Care Education/Training Program
DX: R07.81 Pleurodynia (principal); R05.9 Cough, unspecified; Z87.09 Personal history of other diseases of the respiratory system; Z87.891 Personal history of nicotine dependence; Z79.01 Long term (current) use of anticoagulants; Z59.10 Inadequate housing, unspecified; Z73.9 Problem related to life management difficulty, unspecified; Z59.87 Material hardship due to limited financial resources, not elsewhere classified; Z59.82 Transportation insecurity
CPT/HCPCS: 36415; 71275; 80053; 87637; 93005; 99285; 83735; 84484; 85025; 93010; 99284; J3490